=== PATIENT | female | born 1960 | race Caucasian/White ===

== ENCOUNTER 2021-06-02 08:44 | Inpatient (IN) | payer OTHER, SELFPAY ==
[2021-06-02] VITALS (9 sets, daily range): BP systolic 133–180; BP diastolic 79–115; PULSE 81–104; RESP 16–22; TEMP 36.8–37.6; O2SAT 94–98; BMI 25.7
--- NOTE | 2021-06-02 09:10 | PC.NURSE ---
urine cup given
--- NOTE | 2021-06-02 10:38 | W.ED.NAVMDI ---
HPI - Nausea/Vomiting/Diarrhea General: Chief complaint: Nausea/Vomiting/Diarrhea Stated complaint: N/V, HEADACHE, ABD PAINS, WEAKNESS Time Seen by Provider: 06/02/21 10:38 History of Present Illness: HPI Narrative: Ms. Ren is a 61-year-old lady without significant past medical history presents the emergency department due to abdominal pain. Symptom onset was gradual approximately 3 days ago. She initially endorsed generalized aches, headache, nausea, cough. She subsequently developed increased abdominal pain. Abdominal pain is diffuse and has been worsening. She has not had bowel movement and is unsure of her last flatus. Quality is aching and sharp. She is just driving evening as she has not been able to eat much. Overall the course of symptoms has been worsening. Intensity is moderate to severe. Symptoms are worse with palpation and movement. No other specific changes in health, exacerbating, or relieving factors identified. MD elicited complaint: nausea, vomiting and abdominal pain Pertinent past history: abdominal surgery (c section) Onset (ago): day(s) Description of vomiting: food contents and watery Associated nausea: Yes Associated abdominal pain: Yes Location of pain: Diffuse Pain consistency: constant Severity: severe Quality: cramping and aching Exacerbating factors: vomiting and movement Relieving factors: none Associated symtoms: Reports nausea Review of Systems General: Reports: 10 or more systems reviewed and unremarkable except in HPI and below GI: Reports: nausea PFSH ED PFSH: Medical History (Updated 06/06/21 @ 00:01 by ) Common bile duct dilation Constipation GERD (gastroesophageal reflux disease) HTN (hypertension) Hypercalcemia Intrahepatic bile duct dilation No significant past medical history Parathyroid adenoma Surgical History H/O foot surgery History of Family History Father Heart disease Sister Leukemia Social History Smoking and tobacco status: never smoked Alcohol intake: never Lives independently: Yes Household members: spouse Marital status: Current occupational status: unemployed Physical Exam Const: COMMON NORMALS: alert GENERAL APPEARANCE: cooperative, well developed and in distress (uncomfortable due to pain) HENMT: COMMON NORMALS: normocephalic and atraumatic HEAD & SCALP: normocephalic and atraumatic THROAT: posterior oropharynx normal Eye: COMMON NORMALS: conjunctivae normal CONJUNCTIVA: Yes conjunctivae normal SCLERA: sclerae normal Neck/C-Spine: COMMON NORMALS: supple GENERAL: Yes trachea midline Resp: COMMON NORMALS: normal respiratory effort EFFORT & INSPECTION: Yes able to speak in complete sentences Cardio: COMMON NORMALS: regular rate and regular rhythm RATE: regular rate RHYTHM: regular rhythm GI: PALPATION: Yes Tenderness to palpation present (GI), Yes Guarding due to palpation present (GI) and No Rigid due to palpation Extremity: GENERAL: Yes normal exam except as noted and No edema Neuro: COMMON NORMALS: moves all extremities SENSORIUM/ORIENTATION: Yes alert and No Orientation impaired Psych: COMMON NORMALS: mental status grossly normal and Normal thought process present THOUGHT PROCESS: Normal thought process present Course ED course: - Patient was seen and evaluated by me at bedside - Patient placed on cardiac monitors, IV access obtained - Initial evaluation notable for exam as above -Symptom treatment ordered - Labs notable for leukocytosis and hemoconcentration. Metabolic panel notable for marked hypokalemia, evidence of dehydration is present, significant hypercalcemia of unclear etiology. - Imaging notable for abnormal chest x-ray with widened mediastinum and loculated appearance of right peritracheal region with CT chest recommended. Given abdominal symptoms CT abdomen pelvis also warranted. CT chest negative, abnormality on chest x-ray possibly related to reflux. CT abdomen pelvis noted below for pancreatitis. Additional findings include increased attenuation of the liver and gallbladder as well as biliary ductal dilation. - Upon serial reexamination after treatment the patient was mildly improved however required repeated treatment - Based on patient history, evaluation, labs, and imaging as interpreted the most likely cause of the patient's condition is pancreatitis, hypercalcemia of unclear etiology, dehydration with significant hypokalemia predisposing the patient to arrhythmias requiring IV replenishment. - The results of ED evaluation were discussed with the patient including plan for admission due to requirement for level of care not available if discharged to prevent significant worsening/deterioration. - Hospitalist service contacted and agreed to admit the patient however given finding of biliary ductal dilation without capability at this facility for ERCP they required MRCP prior to admission. No evidence of choledocholithiasis on MRCP. Therefore patient to be admitted for further management and care. - Patient was admitted without further deterioration or significant events. Vital Signs: Vital signs: Vital Signs Temperature 98.1 F 06/05/21 14:20 Pulse Rate 73 06/05/21 14:20 Respiratory Rate 18 06/05/21 14:20 Blood Pressure 127/68 06/05/21 14:20 Pulse Oximetry 94 06/05/21 14:20 MDM - Nausea/Vomiting/Diarrhea MDM Narrative: Medical decision making narrative: 61-year-old lady with presenting with abdominal pain, nausea, vomiting. Patient found to have pancreatitis, no history of alcohol abuse. Patient also notable for significant hypercalcemia of unclear etiology. Evidence of metabolic derangement including significant hypokalemia requiring IV replenishment. Patient required multiple redoses of symptom control and therefore requires further inpatient management and evaluation. Medical Records: Attestation: I reviewed the patient's medical records. Lab Data: Attestation: I reviewed the patient's lab results. Labs: Lab Results 06/02/21 06/02/21 06/02/21 10:35 10:35 10:35 WBC 22.9 10^3/uL H 10 ^3/uL (4.0-10.0) RBC 5.45 10^6/uL H 10 ^6/uL (4.1-5.3) Hgb 15.7 g/dL H g/dL (11.5-15.3) Hct 45.7 % % (37.0-47.0) MCV 83.9 fl fl (81-99) MCH 28.8 pg pg (28.0-34.0) MCHC 34.4 g/dL g/dL (30.0-36.0) RDW 12.1 % % (12.1-15.1) Plt Count 265 10^3/cmm 10^3 /cmm (130-400) MPV 11.3 fL H fL (7.4-10.4) Neut % (Auto) 90.5 % % Lymph % (Auto) 3.9 % % Dougherty % (Auto) 4.6 % % Eos % (Auto) 0.0 % % Baso % (Auto) 0.3 % % Neut # (Auto) 20.70 10^3/uL H 1 0^3/uL (1.8-7.7) Lymph # (Auto) 0.9 10^3/uL 10^3/ uL (0.8-4.8) Dougherty # (Auto) 1.1 10^3/uL H 10^ 3/uL (0.2-0.9) Eos # (Auto) 0.0 10^3/uL 10^3/ uL (0.0-0.8) Baso # (Auto) 0.1 10^3/uL 10^3/ uL (0.0-0.1) Nucleated RBC % (a uto) 0 % % Nucleated RBCs # 0.0 /100WBC /100W BC Sodium 139 mmol/L mmol/L (136-145) Potassium 2.3 mmol/L L* mmo l/L (3.5-5.1) Chloride 100 mmol/L mmol/L (98-107) Carbon Dioxide 24 mmol/L mmol/L (22-29) Anion Gap 17.3 (5-19) BUN 21 mg/dL mg/dL (8-23) Creatinine 1.5 mg/dL H mg/dL (0.5-0.9) GFR Calculation 35.2 mL/min L mL/ min (90-130) Glucose 133 mg/dL H mg/dL (65-115) Calculated Osmolal ity 293 mOsm/kg mOsm/ kg (285-295) Lactic Acid Lactic Acid (Sepsi s) Calcium 16.6 mg/dL H* mg/ dL (8.5-10.5) Magnesium Total Bilirubin 0.7 mg/dL mg/dL (0.15-1.2) AST 25 U/L U/L (0-32) ALT 15 U/L U/L (0-33) Alkaline Phosphata se 186 IU/L H IU/L (35-105) Troponin T Baselin e Troponin T 120 Min [place] Troponin T Troponin T Hi Sens 6Hr Troponin T Hi Sens 6Hr [place] Total Protein 7.2 g/dL g/dL (6.6-8.7) Albumin 4.2 g/dL g/dL (3.5-5.2) Globulin 3.0 g/dL g/dL (1.3-4.6) Triglycerides Lipase 25-OH Vitamin D To scarlett TSH Urine Color Yellow (Yellow) Urine Appearance Sl hazy (CLEAR) Urine pH 5 (5-7) Ur Specific Gravit y 1.025 (1.005-1.030) Urine Protein 1+ H (Negative) Urine Glucose (UA) 1+ H (Normal) Urine Ketones Negative (Negative) Urine Blood 3+ H (Negative) Urine Nitrate Negative (Negative) Urine Bilirubin Neg (Negative) Urine Urobilinogen Norm mg/dL mg/dL (Negative) Ur Leukocyte Marcelle ase 1+ H (Negative) Urine RBC 5-10 /hpf H /hpf (0-2) Urine WBC 10-15 /hpf H /hpf (0-5) Ur Squamous Epith Cells 5-10 /hpf H /hpf (0-5) Amorphous Sediment Not Reportable Urine Bacteria 1+ /hpf H /hpf (NONE) Hyaline Casts 5-10 /lpf H /lpf Fine Granular Cast s 5-10 /lpf H /lpf Urine Mucus 1+ /hpf /hpf SARS-CoV-2 Ag (Rap id) 06/02/21 06/02/21 06/02/21 10:35 10:35 10:35 WBC RBC Hgb Hct MCV MCH MCHC RDW Plt Count MPV Neut % (Auto) Lymph % (Auto) Dougherty % (Auto) Eos % (Auto) Baso % (Auto) Neut # (Auto) Lymph # (Auto) Dougherty # (Auto) Eos # (Auto) Baso # (Auto) Nucleated RBC % (a uto) Nucleated RBCs # Sodium Potassium Chloride Carbon Dioxide Anion Gap BUN Creatinine GFR Calculation Glucose Calculated Osmolal ity Lactic Acid Lactic Acid (Sepsi s) Calcium Magnesium 1.6 mg/dL L mg/dL (1.7-2.3) Total Bilirubin AST ALT Alkaline Phosphata se Troponin T Baselin e 31 ng/L H ng/L (0-10) Troponin T 120 Min [place] Troponin T Troponin T Hi Sens 6Hr Troponin T Hi Sens 6Hr [place] Total Protein Albumin Globulin Triglycerides Lipase 638 U/L H U/L (13-60) 25-OH Vitamin D To scarlett TSH Urine Color Urine Appearance Urine pH Ur Specific Gravit y Urine Protein Urine Glucose (UA) Urine Ketones Urine Blood Urine Nitrate Urine Bilirubin Urine Urobilinogen Ur Leukocyte Marcelle ase Urine RBC Urine WBC Ur Squamous Epith Cells Amorphous Sediment Urine Bacteria Hyaline Casts Fine Granular Cast s Urine Mucus SARS-CoV-2 Ag (Rap id) 06/02/21 06/02/21 06/02/21 11:18 12:02 13:24 WBC RBC Hgb Hct MCV MCH MCHC RDW Plt Count MPV Neut % (Auto) Lymph % (Auto) Dougherty % (Auto) Eos % (Auto) Baso % (Auto) Neut # (Auto) Lymph # (Auto) Dougherty # (Auto) Eos # (Auto) Baso # (Auto) Nucleated RBC % (a uto) Nucleated RBCs # Sodium Potassium Chloride Carbon Dioxide Anion Gap BUN Creatinine GFR Calculation Glucose Calculated Osmolal ity Lactic Acid 2.2 mmol/L mmol/L (0.5-2.2) Lactic Acid (Sepsi s) Calcium Magnesium Total Bilirubin AST ALT Alkaline Phosphata se Troponin T Baselin e Troponin T 120 Min [place] 32.11 ng/L H ng/L (0-10) Delta Troponin T 1.11 ABS# ABS# (0-10) Troponin T Hi Sens 6Hr Troponin T Hi Sens 6Hr [place] Total Protein Albumin Globulin Triglycerides Lipase 25-OH Vitamin D To scarlett TSH Urine Color Urine Appearance Urine pH Ur Specific Gravit y Urine Protein Urine Glucose (UA) Urine Ketones Urine Blood Urine Nitrate Urine Bilirubin Urine Urobilinogen Ur Leukocyte Marcelle ase Urine RBC Urine WBC Ur Squamous Epith Cells Amorphous Sediment Urine Bacteria Hyaline Casts Fine Granular Cast s Urine Mucus SARS-CoV-2 Ag (Rap id) Negative (Negative) 06/02/21 06/02/21 06/02/21 13:24 16:37 16:37 WBC RBC Hgb Hct MCV MCH MCHC RDW Plt Count MPV Neut % (Auto) Lymph % (Auto) Dougherty % (Auto) Eos % (Auto) Baso % (Auto) Neut # (Auto) Lymph # (Auto) Dougherty # (Auto) Eos # (Auto) Baso # (Auto) Nucleated RBC % (a uto) Nucleated RBCs # Sodium Potassium Chloride Carbon Dioxide Anion Gap BUN Creatinine GFR Calculation Glucose Calculated Osmolal ity Lactic Acid Lactic Acid (Sepsi s) 1.3 mmol/L mmol/L (0.5-2.2) Calcium Magnesium Total Bilirubin AST ALT Alkaline Phosphata se Troponin T Baselin e Troponin T 120 Min [place] Troponin T Troponin T Hi Sens 6Hr 34.66 ng/L H ng/L (0-10) Troponin T Hi Sens 6Hr [place] 3.66 ng/L ng/L (0-12) Total Protein Albumin Globulin Triglycerides Lipase 25-OH Vitamin D To scarlett TSH 0.98 uIU/mL uIU/m L (0.27-4.20) Urine Color Urine Appearance Urine pH Ur Specific Gravit y Urine Protein Urine Glucose (UA) Urine Ketones Urine Blood Urine Nitrate Urine Bilirubin Urine Urobilinogen Ur Leukocyte Marcelle ase Urine RBC Urine WBC Ur Squamous Epith Cells Amorphous Sediment Urine Bacteria Hyaline Casts Fine Granular Cast s Urine Mucus SARS-CoV-2 Ag (Rap id) 06/02/21 06/02/21 16:37 16:37 WBC RBC Hgb Hct MCV MCH MCHC RDW Plt Count MPV Neut % (Auto) Lymph % (Auto) Dougherty % (Auto) Eos % (Auto) Baso % (Auto) Neut # (Auto) Lymph # (Auto) Dougherty # (Auto) Eos # (Auto) Baso # (Auto) Nucleated RBC % (a uto) Nucleated RBCs # Sodium 141 mmol/L mmol/L (136-145) Potassium 2.6 mmol/L L* mmo l/L (3.5-5.1) Chloride 102 mmol/L mmol/L (98-107) Carbon Dioxide 18 mmol/L L mmol/ L (22-29) Anion Gap 23.6 H (5-19) BUN 21 mg/dL mg/dL (8-23) Creatinine 1.4 mg/dL H mg/dL (0.5-0.9) GFR Calculation 38.1 mL/min L mL/ min (90-130) Glucose 108 mg/dL mg/dL (65-115) Calculated Osmolal ity 296 mOsm/kg H mOs m/kg (285-295) Lactic Acid Lactic Acid (Sepsi s) Calcium 17.3 mg/dL H* mg/ dL (8.5-10.5) Magnesium Total Bilirubin AST ALT Alkaline Phosphata se Troponin T Baselin e Troponin T 120 Min [place] Troponin T Troponin T Hi Sens 6Hr Troponin T Hi Sens 6Hr [place] Total Protein Albumin Globulin Triglycerides 100 mg/dL mg/dL (0-150) Lipase 25-OH Vitamin D To scarlett > 100 ng/mL H ng/ mL (30-100) TSH Urine Color Urine Appearance Urine pH Ur Specific Gravit y Urine Protein Urine Glucose (UA) Urine Ketones Urine Blood Urine Nitrate Urine Bilirubin Urine Urobilinogen Ur Leukocyte Marcelle ase Urine RBC Urine WBC Ur Squamous Epith Cells Amorphous Sediment Urine Bacteria Hyaline Casts Fine Granular Cast s Urine Mucus SARS-CoV-2 Ag (Rap id) EKG Data^: EKG 1: Attestation: I personally reviewed and interpreted this EKG as follows: EKG interpretation date: 06/02/21 EKG interpretation time: 11:18 Interpretation: Twelve-lead EKG shows a irregular rhythm at a rate of 96. UT interval varies, QRS duration 104, QTc 301. Left axis deviation. Interpretation: Irregular sinus rhythm. EKG 2: Attestation: I personally reviewed and interpreted this EKG as follows: EKG interpretation date: 06/02/21 EKG interpretation time: 17:55 Interpretation: Twelve-lead EKG shows a irregular rhythm at a rate of 102. UT interval 184, QRS duration 80, QTc 305 Normal axis. Interpretation: Sinus arrhythmia. EKG 3: Attestation: I personally reviewed and interpreted this EKG as follows: EKG interpretation date: 06/02/21 EKG interpretation time: 13:22 Interpretation: Twelve-lead EKG shows an irregular rhythm at a rate of 110. UT interval variable, QRS duration 76, QTc 289. Left axis deviation. Interpretation: Sinus arrhythmia. Discharge Plan Discharge Patient Disposition: Admitted As Inpatient Admit Provider: Carrillo Torres Condition: Stable Discharge Diet: Advance as tolerated, Soft Mechanical and Full LIquid Discharge Activity: Resume usual activity Coding Level of Care Code ED Stile Ripsaw Operator for Chg Fwd Exam Comprehensive
--- NOTE | 2021-06-02 10:53 | CTR_ITS ---
PROCEDURE INFORMATION: Exam: CT Chest With Contrast; Diagnostic Exam date and time: 06/02/2021 10:53 AM Age: 61 years old Clinical indication: Abdominal pain; Chest pressure; Additional info: Abd pain, n/v/d TECHNIQUE: Imaging protocol: Diagnostic computed tomography of the chest with contrast. Radiation optimization: All CT scans at this facility use at least one of these dose optimization techniques: automated exposure control; mA and/or kV adjustment per patient size (includes targeted exams where dose is matched to clinical indication); or iterative reconstruction. Contrast material: VISI 320; Contrast volume: 95 ml; Contrast route: INTRAVENOUS (IV); COMPARISON: CR (CHEST, ) 06/02/2021 10:57 AM RADIATION DOSE METRICS: Total DLP (mGy-cm): 959.27 FINDINGS: Lungs: Unremarkable. No consolidation. No masses. Pleural spaces: Unremarkable. No pneumothorax. No pleural effusion. Heart: Normal heart size. Coronary atherosclerotic calcifications seen. No pericardial effusion. Mediastinal space: Air-fluid/contrast level seen within the esophagus, suggestive of gastroesophageal reflux. Aorta: Unremarkable. No aortic aneurysm. Lymph nodes: Unremarkable. No enlarged lymph nodes. Bones/joints: Old healed fracture deformities noted in the left ribcage. Degenerative changes of the spine seen. Soft tissues: Unremarkable. PROCEDURE INFORMATION: Exam: CT Abdomen And Pelvis With Contrast Exam date and time: 06/02/2021 10:53 AM Age: 61 years old Clinical indication: Abdominal pain; Chest pressure; Additional info: Abd pain, n/v/d TECHNIQUE: Imaging protocol: Computed tomography of the abdomen and pelvis with contrast. Radiation optimization: All CT scans at this facility use at least one of these dose optimization techniques: automated exposure control; mA and/or kV adjustment per patient size (includes targeted exams where dose is matched to clinical indication); or iterative reconstruction. Contrast material: VISI 320; Contrast volume: 95 ml; Contrast route: INTRAVENOUS (IV); COMPARISON: CR (CHEST, ) 06/02/2021 10:57 AM RADIATION DOSE METRICS: Total DLP (mGy-cm): 959.27 FINDINGS: Liver: No mass. See Gallbladder and bile ducts finding. Gallbladder and bile ducts: There is moderate dilatation of the CBD measuring up to 1.8 cm in diameter. No clear evidence of obstructing stone or mass. Mild intrahepatic biliary ductal dilatation is present. Non abnormally distended gallbladder. There is slight increased density of the pancreatic parenchyma surrounding the gallbladder, which may represent mild secondary hyperemia or fat sparing. There is an ill-defined focus of decreased attenuation along the anterior aspect of the liver and adjacent to the falciform ligament, consistent with focal fatty infiltration. Slight decreased attenuation of the liver, suggestive of hepatic steatosis. Pancreas: Homogeneous enhancement of the pancreatic parenchyma. No evidence of necrosis. No mass lesion seen. No pancreatic ductal dilatation seen. There is stranding of the fat surrounding the pancreatic body and tail, with free fluid extending towards the left upper quadrant, left anterior pararenal space, pelvis and perihepatic region. No discrete peripancreatic fluid collection. Spleen: Normal. No splenomegaly. Adrenal glands: Normal. No mass. Kidneys and ureters: Normal. No hydronephrosis. Stomach and bowel: Unremarkable. No obstruction. No mucosal thickening. Appendix: No evidence of appendicitis. Intraperitoneal space: Unremarkable. No free air. No significant fluid collection. Vasculature: Unremarkable. No abdominal aortic aneurysm. Lymph nodes: Unremarkable. No enlarged lymph nodes. Urinary bladder: Unremarkable as visualized. Reproductive: The uterus is surgically absent. Bones/joints: Degenerative changes of the spine seen. No acute fracture. Soft tissues: Unremarkable. CT/CT chest abd pel w con* IMPRESSION: 1. No acute pathology in the chest. 2. Imaging findings suggestive of gastroesophageal reflux. IMPRESSION: 1. Imaging findings of acute pancreatitis. 2. Moderate extrahepatic and mild intrahepatic biliary ductal dilatation. 3. Slight increased attenuation of the liver surrounding the gallbladder, which may represent fat sparing or mild secondary hyperemia.
--- NOTE | 2021-06-02 10:53 | XRR_ITS ---
PROCEDURE INFORMATION: Exam: XR Chest Exam date and time: 06/02/2021 10:53 AM Age: 61 years old Clinical indication: Patient HX: Cough x 3 days TECHNIQUE: Imaging protocol: XR of the chest. Views: 1 view. COMPARISON: No relevant prior studies available. FINDINGS: Lungs: Minimal bibasilar atelectasis. No consolidation. Pleural spaces: Unremarkable. No pleural effusion. No pneumothorax. Heart/Mediastinum: Widened mediastinum, with thickened lobulated appearance of the right paratracheal region. Vasculature: Uncoil of the aorta. Bones/joints: Mild S-shaped curvature of the spine and multilevel degenerative changes seen. XR/XR chest 1V portable [id number] IMPRESSION: 1. Nonspecific widened mediastinum with thickened lobulated appearance of the right paratracheal region. Further evaluation with CT chest is recommended. 2. Bibasilar atelectasis. No consolidation.
[2021-06-02] MEDS: sodium chloride 0.9% 1,000 ML 999 ML IV ×2 (10:55→19:04)
[2021-06-02] MEDS: ondansetron 2 mg/ML SDV 2 mL 4 MG IVP ×2 (10:55→15:12)
[2021-06-02] MEDS: morphine 4 mg/mL SDV 1 mL IVP ×3 (10:55→19:06)
--- NOTE | 2021-06-02 10:55 | ECG_ITS ---
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 Measurements Intervals [place] Rate: 96 P: [place]: QRS: 8 QRSD: 104 T: -61 QT: 247 QTc: 313 Interpretive Statements SINUS RHYTHM WITH PAC'S NONSPECIFIC ST & T-WAVE ABNORMALITY No previous ECG available for comparison Electronically Signed On 06-04-2021 5:08:02 INSPECTOR [employer]ESSES by Pamella Chadwick M.D. [id number] f
[2021-06-02 10:57] LABS: Basophils # 0.1 10^3/uL (0.0-0.1); Basophils % 0.3 %; Hematocrit 45.7 % (37.0-47.0); Hemoglobin 15.7 g/dL (11.5-15.3); Lymphocytes # 0.9 10^3/uL (0.8-4.8); Lymphocytes % 3.9 %; Mean Corpuscular HGB Conc 34.4 g/dL (30.0-36.0); Mean Corpuscular Hemoglobin 28.8 pg (28.0-34.0); Mean Corpuscular Volume 83.9 fl (81-99); Mean Platelet Volume 11.3 fL (7.4-10.4); Monocytes # 1.1 10^3/uL (0.2-0.9); Monocytes % 4.6 %; Neutrophils % 90.5 %; Nucleated Red Blood Cells % 0 %; Platelet Count 265 10^3/cmm (130-400); Red Blood Count 5.45 10^6/uL (4.1-5.3); Red Cell Distribution Width 12.1 % (12.1-15.1); White Blood Count 22.9 10^3/uL (4.0-10.0)
[2021-06-02 11:09] LABS: Add Urine Microscopic? YES; Bilirubin Urine Neg (Negative); Blood Urine 3+ (Negative); Glucose Urine UA 1+ (Normal); Ketones Urine Negative (Negative); Leukocyte Esterase Urine 1+ (Negative); Nitrate Urine Negative (Negative); Protein Urine 1+ (Negative); Specific Gravity, Urine 1.025 (1.005-1.030); Urine Appearance SL Hazy (CLEAR); Urine Color Yellow (Yellow); Urobilinogen Urine Norm (Negative); pH Urine 5 (5-7)
[2021-06-02 11:10] LABS: Add Urine Culture? Yes; Bacteria Urine 1+ /hpf; Mucus Urine 1+ /hpf
[2021-06-02 11:23] LABS: Alanine Aminotransferase 15 U/L (0-33); Albumin Level 4.2 g/dL (3.5-5.2); Alkaline Phosphatase 186 IU/L (35-105); Anion Gap 17.3 (5-19); Aspartate Amino Transferase 25 U/L (0-32); Blood Urea Nitrogen 21 mg/dL (8-23); Carbon Dioxide 24 mmol/L (22-29); Chloride 100 mmol/L (98-107); Glomerular Filtration Rate 35.2 mL/min (90-130); Glucose 133 mg/dL (65-115); Osmolality Calculated 293 mOsm/kg (285-295); Sodium 139 mmol/L (136-145); Total Bilirubin 0.7 mg/dL (0.15-1.2); Total Protein 7.2 g/dL (6.6-8.7)
[2021-06-02 11:24] LABS: Troponin(5th) Baseline 31 ng/L (0-10)
[2021-06-02 11:31] LABS: Lipase 638 U/L (13-60)
[2021-06-02 11:32] LABS: Calcium 16.6 mg/dL (8.5-10.5); Potassium 2.3 mmol/L (3.5-5.1)
--- NOTE | 2021-06-02 11:32 | PC.NURSE ---
NOTIFIED DR. HONEYCUTT OF [place] OF 16.6 AND K OF 2.3 VERBALIZED UNDERSTANDING NO FURTHER ORDERS.
[2021-06-02 11:44] LABS: SARS Covid-2 Antigen Negative (Negative)
[2021-06-02] MEDS: lidocaine 1% 5 ML in potassium chloride premix 100 ML 25 ML IV (11:49)
[2021-06-02] MEDS: potassium chloride ER 20 mEq Tablet 40 MEQ PO (11:49)
[2021-06-02] MEDS: magnesium sulfate premix 2 GM/50 ML PIGGYBACK IV (11:49)
[2021-06-02 11:55] LABS: Magnesium 1.6 mg/dL (1.7-2.3)
[2021-06-02] MEDS: iodixanol 320 mg/mL 100mL Btl IV (12:15)
[2021-06-02 12:24] LABS: Lactic Sepsis W/Reflex 2.2 mmol/L (0.5-2.2)
[2021-06-02 12:40] LABS: Reflex Lactate Order REFLEX LACTIC ORDERD
--- NOTE | 2021-06-02 12:55 | ECG_ITS ---
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 Measurements Intervals [place] Rate: 110 P: [place]: QRS: -3 QRSD: 76 T: 24 QT: 224 QTc: 304 Interpretive Statements SINUS RHYTHM WITH PAC'S NONSPECIFIC ST & T-WAVE ABNORMALITY ABNORMAL RHYTHM ECG Compared to ECG 06/02/2021 11:16:52 No significant changes Electronically Signed On 06-04-2021 5:21:35 PROCESS TREATER by Pamella Chadwick M.D. [id number] f
[2021-06-02 13:51] LABS: Troponin 5 2HR 32.11 ng/L (0-10); Troponin 5 2HR Delta 1.11 ABS# (0-10)
--- NOTE | 2021-06-02 15:15 | MRR_ITS ---
PROCEDURE INFORMATION: Exam: MR Abdomen Without Contrast Exam date and time: 06/02/2021 3:15 PM Age: 61 years old Clinical indication: Abdominal pain; Other: Sharp and severe; Additional info: Biliary ductal dilation, pancreatitis, R/O obstruction TECHNIQUE: Imaging protocol: MR of the abdomen without contrast. COMPARISON: CT chest abd pel w con* 06/02/2021 12:14 PM FINDINGS: Liver: Chemical shift images demonstrate diffuse signal dropout throughout the liver on out of phase sequence, with a calculated fat fraction of 20.2%, consistent with mild hepatic steatosis. There is a 1.3 cm focus of signal dropout adjacent to the falciform ligament, consistent with focal fatty infiltration. No mass lesion identified. Gallbladder and bile ducts: There is moderate dilatation of the CBD measuring up to 1.8 cm in diameter. Mild intrahepatic biliary ductal dilatation is present. No evidence of filling defect to suggest choledocholithiasis. The gallbladder is not abnormally distended. No gallstones seen. Pancreas: Edematous changes of the pancreas noted. No evidence of necrosis. No mass lesion seen. No pancreatic ductal dilatation seen. There is stranding of the fat surrounding the pancreatic body and tail, with free fluid extending towards the left upper quadrant, left anterior pararenal space, pelvis and perihepatic region. No discrete peripancreatic fluid collection. Spleen: Unremarkable. No splenomegaly. Adrenal glands: Unremarkable. No mass. Kidneys and ureters: Unremarkable. No solid mass. No hydronephrosis. Stomach and bowel: Visualized stomach and intestines are unremarkable. Intraperitoneal space: No free fluid. Arteries: No abdominal aortic aneurysm. Bones/joints: Degenerative changes of the spine seen. Soft tissues: Unremarkable. MR/MR MRCP [id number] IMPRESSION: 1. Imaging findings of acute pancreatitis involving the body and tail. No discrete peripancreatic fluid collection seen. No mass lesion seen. No ductal dilatation. 2. Moderate extrahepatic and mild intrahepatic biliary ductal dilatation, without evidence of choledocholithiasis. 3. Mild hepatic steatosis, with calculated fat fraction of 20.2%.
--- NOTE | 2021-06-02 16:39 | PC.NURSE ---
1515 Pt left for MRI. 1630 Pt returned from MRI.
--- NOTE | 2021-06-02 16:55 | ECG_ITS ---
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 Measurements Intervals [place] Rate: 102 P: 56 SD: 184 QRS: 1 QRSD: 80 T: 38 QT: 246 QTc: 321 Interpretive Statements SINUS TACHYCARDIA WITH OCCASIONAL SUPRAVENTRICULAR PREMATURE COMPLEXES NONSPECIFIC ST & T-WAVE ABNORMALITY ABNORMAL RHYTHM ECG Compared to ECG 06/02/2021 13:14:13 Atrial fibrillation no longer present T-wave abnormality still present Electronically Signed On 06-04-2021 5:19:48 DIRECTOR COUNSELING [employer]AU by Pamella Chadwick M.D. [id number]
[2021-06-02 17:12] LABS: Troponin 5 6HR 34.66 ng/L (0-10); Troponin 5 6HR Delta 3.66 ng/L (0-12)
[2021-06-02 17:14] LABS: Lactic Acid level (Lactate) 1.3 mmol/L (0.5-2.2)
[2021-06-02 18:28] LABS: Calcium 16.8 mg/dL (8.5-10.5)
--- NOTE | 2021-06-02 19:03 | P.HP_ITS ---
Providers/Chief Complaint Primary Care Provider: Merlin Slade MD Chief Complaint: N/V, HEADACHE, ABD PAINS, WEAKNESS History of Present Illness Pleasant 61-year-old lady with history of HTN, hypercalcemia for which she has been following with her primary provider, has been feeling unwell for a while, feeling some decrease in alertness/cognition, constipation, presented with several days of nausea and vomiting, mid abdominal pain. In ER with noted hypokalemia, hypercalcemia, calcium 16.6, recheck 16.8. Hypomagnesemia 1.6. Al k phos 168 with normal T bili and transaminases. Lipase 638. Chest x-ray with nonspecific widened mediastinum with lobulated appearance of right peritracheal region. Bibasilar atelectasis. No consolidation. CT chest abdomen pelvis obtained with finding of no acute pathology in the chest, imaging findings suggestive of GERD, in the abdomen noted acute pancreatitis, moderate extrahepatic and mild intrahepatic biliary ductal dilation, slight increased attenuation of liver surrounding gallbladder possible representing fat sparing or mild secondary hyperemia. MRCP showed imaging findings of acute pancreatitis involving the body and tail. No discrete peripancreatic fluid collection seen. No mass lesions seen. No ductal dilation. Moderate extrahepatic and mild intrahepatic biliary ductal dilation without evidence of choledocholithiasis. Mild hepatic steatosis with calculated past fraction of 20.2%. Discussing findings with her, as it is unclear why there is intra and extrahepatic biliary ductal dilation, no choledocholithiasis identified, but cannot exclude stricture or other causes potentially leading to unimproving pancreatitis until addressed, consideration given to transfer to outside facilities, however, recently with lack of beds associated with the current pandemic surge, she is willing to stay here to initiate additional assessment and treatment and reassess tomorrow with consideration of further course of action depending on whether her condition is improving. Review of Systems Const: Denies: fever(s), chills, body aches or malaise Eyes: Denies: change in vision or eye redness ENMT: Denies: throat pain, oral sores or ear or mastoid pain Card: Denies: chest pain, edema, pre-syncope or dyspnea on exertion Resp: Denies: dyspnea, productive cough, change in phlegm color or hemoptysis GI: Denies: abdominal pain, nausea, vomiting, diarrhea, constipation, hematochezia or melena : Denies: flank pain, urinary frequency or hematuria Musc: Denies: back pain, joint swelling or joint redness Skin/Breast: Denies: rash, sores or new lesions Neuro: Denies: headache(s), numbness in extremities, weakness in extremities, dizziness, confusion or seizure-like activity Endo: Denies: polyuria or polydipsia Harpreet/Lymph: Denies: easy bleeding or purpura All/Imm: Denies: urticaria, throat swelling or tongue swelling Medications/Allergies Home Medications Medication Instructions Recorded Confirmed Last Taken Type atorvastatin 80 mg PO DAILY 06/02/21 06/02/21 06/01/21 History diltiazem HCl 180 mg PO DAILY 06/02/21 06/02/21 06/01/21 History lisinopril 20 mg PO BID 06/02/21 06/02/21 06/01/21 History methadone 5 mg PO BID 06/02/21 06/02/21 06/01/21 History potassium chloride 10 meq PO DAILY 06/02/21 06/02/21 06/01/21 History Allergies Allergy/AdvReac Type Severity Reaction Status Date / Time prochlorperazine Allergy ADR-Irritab Verified 06/02/21 09:05 [From Compazine] le PFSH Acute PFSH: Medical History (Updated 06/02/21 @ 19:36 by Carrillo Torres MD) Constipation HTN (hypertension) Hypercalcemia No significant past medical history Surgical History H/O foot surgery History of Family History Father Heart disease Sister Leukemia Social History Smoking and tobacco status: never smoked Alcohol intake: never Substance/Drug Use: never Lives independently: Yes Household members: spouse Marital status: Current occupational status: unemployed Vitals/I&O/Wt Last Vital Signs Temp 98.3 F 06/02/21 09:05 Pulse 89 06/02/21 11:00 Resp 18 06/02/21 11:00 BP 133/105 06/02/21 11:00 Pulse Ox 98 06/02/21 11:00 06/02/21 06/02/21 06/02/21 06:59 14:59 22:59 Intake Total 1050 / 1050 Balance 1050 / 1050 Weight last 48 hrs Weight 70.307 kg Physical Exam Const: COMMON NORMALS: no acute distress and patient oriented x3 OTHER: Slightly delayed responses HENMT: COMMON NORMALS: oropharynx normal Neck/C-Spine: COMMON NORMALS: no JVD Resp: COMMON NORMALS: normal respiratory effort and clear to auscultation bilaterally AUSCULTATION: clear to auscultation bilaterally Cardio: COMMON NORMALS: no JVD, regular rhythm, S1 normal heart sound present, S2 normal heart sound present and No murmurs present (Cardio) RHYTHM: regular rhythm HEART SOUNDS: S1 normal heart sound present and S2 normal heart sound present GI: COMMON NORMALS: Normal to inspection, nondistended, normoactive bowel sounds present and Soft to palpation PALPATION: Yes Soft to palpation and Yes Tenderness to palpation present (GI) Details: other (mid/periumbilical) Extremity: COMMON NORMALS: no joint enlargement and no pedal edema Neuro: COMMON NORMALS: patient oriented x3 and moves all extremities Skin: COMMON NORMALS: no rashes or lesions noted GENERAL SKIN EXAM: no rashes or lesions noted Data : 06/02/21 10:35 06/02/21 10:35 A&P Assessment and plan (1) Acute pancreatitis: Discussed with her unclear cause of intrahepatic biliary duct dilation, moderate CBD dilation. No stones noted on ERCP. Possible passed stone, possible passed sludge. Discussed with her possibility of stricture, discussed the possibility of malignancy obstructing outflow. At the same time has an alternative cause also for pancreatitis and hypercalcemia. Pain is mid abdomen, no right upper quadrant pain. Unclear significance of the ductal dilation currently. Given lack of beds in surrounding hospitals she is agreeable to initiate care here. Will recheck lipase in the morning. Currently bowel rest, IV hydration. Analgesia as needed. Antiemetics as needed. Check triglycerides. Treat hypercalcemia as below. Status: Acute (2) Common bile duct dilation: Understands in case of persistent pancreatitis may still need transfer to outlying hospital for GI evaluation, possible EUS, possible ERCP. Would otherwise set up follow-up with gastroenterology after discharge for additional evaluation. Status: Acute (3) Intrahepatic bile duct dilation: Status: Acute (4) Hypercalcemia: Unclear cause of hypercalcemia, although states has been following with primary provider with fluctuating calcium levels being monitored. Symptomatic severe hypercalcemia with pancreatitis, CHANDA, notes has not been feel ing well for a while with some cognitive slowing, reports also constipation. Findings consistent with GERD on imaging. Received IV fluid bolus in ER. Continue IV fluids with normal saline infusion. Discussed with her additionally treatment with calcitonin, pamidronate. Check PTH, vitamin D levels. Reports taking vitamin D supplementation at home. Consider additional assessment depending on findings further considering assessment for hematologic disorders given history of leukemia in his sister. Status: Acute (5) Hypokalemia: Received replacement. Recheck BMP. Hypomagnesemia replaced. Status: Acute (6) UTI (urinary tract infection): Possible UTI. Follow-up urine culture. Ceftriaxone. Status: Acute (7) Hypomagnesemia: Received replacement. Follow-up magnesium level. Status: Acute (8) GERD (gastroesophageal reflux disease): Findings consistent with GERD noted on imaging. Consider referral for endoscopic evaluation after discharge. Start PPI. Status: Acute (9) CHANDA (acute kidney injury): Hold lisinopril. Treatment for hypercalcemia as above. Status: Acute Additional A&P Information Methadone therapy: Please confirm with clinic regarding dose on Thursday. Irregular heartbeat: Machine report atrial fibrillation on initial EKG. On evaluation appears to have P waves preceding QRSs, irregular heartbeat, however, with premature 90 ventricular beats. Monitor on telemetry. Attestations Medical Necessity Statement*: Admission of over 2 midnights is anticipated for assessment management of severe symptomatic hypercalcemia, multiple electrolyte derangements, CHANDA, acute pancreatitis. Coding Level of Care Code Acute Aging Department Supervisor for [facility] Fwd Diagnoses Acute pancreatitis K85.90 Common bile duct dilation K83.8 Intrahepatic bile duct dilation K83.8 Hypercalcemia E83.52 Hypokalemia E87.6 UTI (urinary tract infection) N39.0 Hypomagnesemia E83.42 GERD (gastroesophageal reflux disease) K21.9 CHANDA (acute kidney injury) N17.9
[2021-06-02 20:45] LABS: Triglycerides 100 mg/dL (0-150)
[2021-06-02] MEDS: sodium chloride 0.9% 1,000 ML 150 ML IV (20:46)
[2021-06-02] MEDS: cefTRIAXone 1,000 MG in sodium chloride 0.9% (plus) 50 ML 100 MG IV (21:24)
[2021-06-02] MEDS: calcitonin,salmon 200 unit/mL SDV 2mL 280 UNIT SUBCUT (21:24)
[2021-06-02] MEDS: enoxaparin 40 mg/0.4 mL Syringe SUBCUT (21:24)
[2021-06-02 22:50] LABS: Thyroid Stimulating Hormone 0.98 uIU/mL (0.27-4.20)
[2021-06-03] VITALS (11 sets, daily range): BP systolic 128–169; BP diastolic 78–102; PULSE 88–105; RESP 16–18; TEMP 36.6–37.8; O2SAT 90–95
[2021-06-03] MEDS: morphine 4 mg/mL SDV 1 mL IVP ×2 (00:06→06:35)
[2021-06-03 00:47] LABS: Blood Urea Nitrogen 21 mg/dL (8-23); Carbon Dioxide 18 mmol/L (22-29); Chloride 102 mmol/L (98-107); Glomerular Filtration Rate 38.1 mL/min (90-130); Glucose 108 mg/dL (65-115); Osmolality Calculated 296 mOsm/kg (285-295); Sodium 141 mmol/L (136-145)
[2021-06-03 00:47] LABS: Parathyroid Hormone 163.5 pg/mL (15-65)
[2021-06-03 00:57] LABS: Anion Gap 23.6 (5-19)
[2021-06-03 01:00] LABS: Calcium 17.3 mg/dL (8.5-10.5); Potassium 2.6 mmol/L (3.5-5.1)
[2021-06-03 01:02] LABS: Calcium 16.5 mg/dL (8.5-10.5)
[2021-06-03 03:43] LABS: 25 Hydroxy Vitamin D > 100 ng/mL (30-100)
[2021-06-03] MEDS: sodium chloride 0.9% 1,000 ML 150 ML IV ×2 (03:45→10:16)
[2021-06-03 06:10] LABS: Basophils % 0.2 %; Hematocrit 41.8 % (37.0-47.0); Hemoglobin 13.9 g/dL (11.5-15.3); Lymphocytes # 0.8 10^3/uL (0.8-4.8); Lymphocytes % 4.2 %; Mean Corpuscular HGB Conc 33.3 g/dL (30.0-36.0); Mean Corpuscular Hemoglobin 29.1 pg (28.0-34.0); Mean Corpuscular Volume 87.6 fl (81-99); Mean Platelet Volume 11.5 fL (7.4-10.4); Monocytes # 0.6 10^3/uL (0.2-0.9); Monocytes % 3.2 %; Neutrophils # 17.08 10^3/uL (1.8-7.7); Neutrophils % 91.5 %; Nucleated Red Blood Cells % 0 %; Platelet Count 207 10^3/cmm (130-400); Red Blood Count 4.77 10^6/uL (4.1-5.3); Red Cell Distribution Width 12.7 % (12.1-15.1); White Blood Count 18.7 10^3/uL (4.0-10.0)
[2021-06-03 06:39] LABS: Alanine Aminotransferase 19 U/L (0-33); Albumin Level 3.4 g/dL (3.5-5.2); Alkaline Phosphatase 181 IU/L (35-105); Anion Gap 18.6 (5-19); Aspartate Amino Transferase 35 U/L (0-32); Blood Urea Nitrogen 19 mg/dL (8-23); Carbon Dioxide 22 mmol/L (22-29); Chloride 109 mmol/L (98-107); Glomerular Filtration Rate 45.5 mL/min (90-130); Glucose 95 mg/dL (65-115); Lipase 147 U/L (13-60); Magnesium 1.6 mg/dL (1.7-2.3); Osmolality Calculated 306 mOsm/kg (285-295); Sodium 147 mmol/L (136-145); Total Bilirubin 0.6 mg/dL (0.15-1.2); Total Protein 6.4 g/dL (6.6-8.7)
[2021-06-03 06:51] LABS: Calcium 13.8 mg/dL (8.5-10.5); Potassium 2.6 mmol/L (3.5-5.1)
[2021-06-03] MEDS: methadone 10 mg Tablet 5 MG PO ×2 (10:10→17:14)
[2021-06-03] MEDS: dilTIAZem ER (24HR) 180 mg Capsule PO (10:10)
[2021-06-03] MEDS: pantoprazole DR 40 mg Tablet PO (10:10)
[2021-06-03] MEDS: atorvastatin 40 mg Tablet 80 MG PO (10:11)
[2021-06-03] MEDS: potassium chloride ER 10 mEq Tablet PO (10:11)
[2021-06-03] MEDS: calcitonin,salmon 200 unit/mL SDV 2mL 280 UNIT SUBCUT (11:24)
--- NOTE | 2021-06-03 13:53 | US_ITS ---
WS: [id number] ULTRASOUND THYROID TECHNIQUE: Ultrasound of the thyroid. CLINICAL INFORMATION: high pth, COMPARISON: None. FINDINGS: Thyroid: Right and left thyroid lobes are normal in size and echotexture. Hypoechoic well-circumscribed right mid thyroid or parathyroid lesion with peripheral vascularity na suring 1.0 x 1.8 x 2.2 CM. Additional hypoechoic right inferior thyroid lesion measuring 1.0 x 0.7 x 0.7 cm Left superior thyroid nodule measuring 0.7 x 0.4 x 0.5 cm Right thyroid lobe: 3.7 cm x 1.3 cm x 2.1 cm Left thyroid lobe: 3.4 cm x 1.0 cm x 1.3 cm. Isthmus: 0.2 mm. Cervical lymphadenopathy: None. US/US thyroid [id number] IMPRESSION: 1. Hypoechoic well-circumscribed right mid thyroid or parathyroid lesion with peripheral vascularity measuring 1.0 x 1.8 x 2.2 CM. Considering clinical histo ry this may represent a parathyroid adenoma. Recommend further evaluation with Nuclear medicine parathyroid scintigraphy 2. Additional smaller hypoechoic nodules described above.
[2021-06-03] MEDS: D5-NS 0.45% + KCL 20 mEq 20 MEQ/1,000 ML BAG 100 MEQ IV (14:25)
[2021-06-03] MEDS: magnesium sulfate premix 2 GM/50 ML PIGGYBACK IV (14:26)
[2021-06-03] MEDS: potassium chloride ER 20 mEq Tablet 40 MEQ PO ×3 (14:26→17:14)
--- NOTE | 2021-06-03 17:15 | P.PN_ITS ---
Subjective Subjective: Interval history: Hospital course: Labs appreciated. Family at bedside. Patient denies any vomiting but complaining of nausea. States abdominal pain is stable they are getting exaggerated on movements. Has remained afebrile and hemodynamically stable. On room air. Vitals/I&O/Wt Last Vital Signs Temp 97.8 F 06/03/21 16:00 Pulse 88 06/03/21 16:00 Resp 16 06/03/21 17:14 BP 128/80 06/03/21 16:00 Pulse Ox 90 06/03/21 16:00 06/03/21 06/03/21 06/03/21 06:59 14:59 22:59 Intake Total 1000 / 3205 977.5 / 977.5 Balance 1000 / 3205 977.5 / 977.5 Weight last 48 hrs Weight 69.763 kg Weight 70.307 kg Weight 70.307 kg Physical Exam Const: COMMON NORMALS: no acute distress and patient oriented x3 OTHER: Slightly delayed responses HENMT: COMMON NORMALS: oropharynx normal Neck/C-Spine: COMMON NORMALS: no JVD Resp: COMMON NORMALS: normal respiratory effort and clear to auscultation bilaterally AUSCULTATION: clear to auscultation bilaterally Cardio: COMMON NORMALS: no JVD, regular rhythm, S1 normal heart sound present, S2 normal heart sound present and No murmurs present (Cardio) RHYTHM: regular rhythm HEART SOUNDS: S1 normal heart sound present and S2 normal heart sound present GI: COMMON NORMALS: Normal to inspection, nondistended, normoactive bowel sounds present and Soft to palpation PALPATION: Yes Soft to palpation and Yes Tenderness to palpation present (GI) Extremity: COMMON NORMALS: no joint enlargement and no pedal edema Neuro: COMMON NORMALS: patient oriented x3 and moves all extremities Skin: COMMON NORMALS: no rashes or lesions noted GENERAL SKIN EXAM: no rashes or lesions noted Data : 06/03/21 05:01 06/03/21 05:01 Micro: Microbiology 06/02/21 10:35 Urine Culture - Preliminary Urine,Clean Catch A&P Assessment and plan (1) Acute pancreatitis: Triglycerides within normal limits. MRCP negative for gallstones. Did show intrahepatic biliary duct dilatation, moderate severity dilatation hence cannot rule out outside compression. Could be secondary to hypercalcemia. Continued IV fluids. Switch to D5 half NS with 20 mg of potassium at 100 cc/h. Zofran as needed. Morphine as needed for hours. Start on clear liquids diet. Discussed in detail with patient regarding multiple small meals. Status: Acute (2) Common bile duct dilation: Understands in case of persistent pancreatitis may still need transfer to outlying hospital for GI evaluation, possible EUS, possible ERCP. Would otherwise set up follow-up with gastroenterology after discharge for additional evaluation. Status: Acute (3) Intrahepatic bile duct dilation: Status: Acute (4) Hypercalcemia: States is chronic. Unclear etiology. PTH elevated. Continue with IV fluids. Continue with calcitonin and additionally post 1 dose of pamidronate. Check thyroid ultrasound. Status: Acute (5) Hypokalemia: Again noted. 40 mg of potassium every hourly for 3 doses. IV fluids with potassium. Repeat BMP in evening. Status: Acute (6) UTI (urinary tract infection): Possible UTI. Follow-up urine culture. Ceftriaxone. Status: Acute (7) Hypomagnesemia: Received replacement. Follow-up magnesium level. Status: Acute (8) GERD (gastroesophageal reflux disease): Findings consistent with GERD noted on imaging. Consider referral for endoscopic evaluation after discharge. Start PPI. Status: Acute (9) CHANDA (acute kidney injury): Hold lisinopril. Treatment for hypercalcemia as above. Status: Acute Additional A&P Information Methadone therapy: Please confirm with clinic regarding dose on Thursday. Full code. Clear liquid diet. Lovenox for DVT prophylaxis. Protonix for PUD prophylaxis Attestations Medical Necessity Statement*: For management of pancreatitis, hypercalcemia most likely causing pancreatitis while patient remains dehydrated from poor oral intake as Guiatuss tried. Time Spent in Patient Care: Greater than 35 minutes (>than 50% of time spent in counselling and/or direct pt care on unit) . Coding Level of Care Code Acute Retort Condenser Attendant for [facility] Fwd Diagnoses Acute pancreatitis K85.90 Common bile duct dilation K83.8 Intrahepatic bile duct dilation K83.8 Hypercalcemia E83.52 Hypokalemia E87.6 UTI (urinary tract infection) N39.0 Hypomagnesemia E83.42 GERD (gastroesophageal reflux disease) K21.9 CHANDA (acute kidney injury) N17.9
[2021-06-03 19:21] LABS: Anion Gap 17.4 (5-19); Blood Urea Nitrogen 16 mg/dL (8-23); Calcium 11.5 mg/dL (8.5-10.5); Carbon Dioxide 20 mmol/L (22-29); Chloride 109 mmol/L (98-107); Glomerular Filtration Rate 56.2 mL/min (90-130); Glucose 122 mg/dL (65-115); Osmolality Calculated 298 mOsm/kg (285-295); Potassium 3.4 mmol/L (3.5-5.1); Sodium 143 mmol/L (136-145)
[2021-06-03] MEDS: cefTRIAXone 1,000 MG in sodium chloride 0.9% (plus) 50 ML 100 MG IV (20:10)
[2021-06-03] MEDS: enoxaparin 40 mg/0.4 mL Syringe SUBCUT (20:10)
[2021-06-03] MEDS: morphine 4 mg/mL SDV 1 mL 2 MG IVP (20:16)
[2021-06-04] VITALS (7 sets, daily range): BP systolic 128–154; BP diastolic 74–91; PULSE 67–98; RESP 15–18; TEMP 36.7–37.7; O2SAT 90–95
[2021-06-04] MEDS: morphine 4 mg/mL SDV 1 mL 2 MG IVP ×2 (00:22→08:09)
[2021-06-04] MEDS: calcitonin,salmon 200 unit/mL SDV 2mL 280 UNIT SUBCUT ×2 (00:23→11:28)
[2021-06-04] MEDS: D5-NS 0.45% + KCL 20 mEq 20 MEQ/1,000 ML BAG 100 MEQ IV ×2 (00:25→08:13)
[2021-06-04 07:03] LABS: Basophils % 0.1 %; Eosinophils % 0.1 %; Hematocrit 35.2 % (37.0-47.0); Hemoglobin 11.4 g/dL (11.5-15.3); Lymphocytes # 0.9 10^3/uL (0.8-4.8); Lymphocytes % 7.3 %; Mean Corpuscular HGB Conc 32.4 g/dL (30.0-36.0); Mean Corpuscular Hemoglobin 29.2 pg (28.0-34.0); Mean Platelet Volume 11.4 fL (7.4-10.4); Monocytes # 0.6 10^3/uL (0.2-0.9); Monocytes % 4.7 %; Neutrophils # 10.09 10^3/uL (1.8-7.7); Neutrophils % 87.2 %; Nucleated Red Blood Cells % 0 %; Platelet Count 144 10^3/cmm (130-400); Red Blood Count 3.91 10^6/uL (4.1-5.3); Red Cell Distribution Width 13.3 % (12.1-15.1); White Blood Count 11.6 10^3/uL (4.0-10.0)
[2021-06-04 07:20] LABS: Alanine Aminotransferase 24 U/L (0-33); Albumin Level 3.1 g/dL (3.5-5.2); Alkaline Phosphatase 217 IU/L (35-105); Anion Gap 12.5 (5-19); Aspartate Amino Transferase 36 U/L (0-32); Blood Urea Nitrogen 14 mg/dL (8-23); Carbon Dioxide 24 mmol/L (22-29); Chloride 114 mmol/L (98-107); Creatinine Clr Calc Pharmacy 63.2825; Globulin 2.2 g/dL (1.3-4.6); Glomerular Filtration Rate 63.4 mL/min (90-130); Glucose 121 mg/dL (65-115); Lipase 40 U/L (13-60); Magnesium 1.6 mg/dL (1.7-2.3); Osmolality Calculated 306 mOsm/kg (285-295); Potassium 3.5 mmol/L (3.5-5.1); Sodium 147 mmol/L (136-145); Total Bilirubin 0.3 mg/dL (0.15-1.2); Total Protein 5.3 g/dL (6.6-8.7)
[2021-06-04] MEDS: potassium chloride ER 10 mEq Tablet PO (08:08)
[2021-06-04] MEDS: atorvastatin 40 mg Tablet 80 MG PO (08:08)
[2021-06-04] MEDS: dilTIAZem ER (24HR) 180 mg Capsule PO (08:08)
[2021-06-04] MEDS: methadone 10 mg Tablet 5 MG PO ×2 (08:08→17:25)
[2021-06-04] MEDS: ondansetron 2 mg/ML SDV 2 mL 4 MG IVP (08:11)
--- NOTE | 2021-06-04 15:36 | P.PN_ITS ---
Subjective Subjective: Interval history: No acute events overnight. Patient continues to remain nauseous without any vomiting. As per nurse patient has not had any oral intake as she is scared because of nausea. Discussed in detail with the patient regarding need to try clear liquid diet. Patient is agreeable. Has remained hemodynamically stable and afebrile. Continues to remain on room air. Vitals/I&O/Wt Last Vital Signs Temp 98.1 F 06/04/21 15:29 Pulse 98 06/04/21 15:29 Resp 16 06/04/21 15:29 BP 154/85 06/04/21 15:29 Pulse Ox 90 06/04/21 15:29 06/04/21 06/04/21 06/04/21 06:59 14:59 22:59 Intake Total 1000 / 3554.5 900 / 900 Balance 1000 / 3554.5 900 / 900 Weight last 48 hrs Weight 69.127 kg Weight 69.763 kg Weight 70.307 kg Physical Exam Const: COMMON NORMALS: no acute distress and patient oriented x3 HENMT: COMMON NORMALS: oropharynx normal Neck/C-Spine: COMMON NORMALS: no JVD Resp: COMMON NORMALS: normal respiratory effort and clear to auscultation bilaterally AUSCULTATION: clear to auscultation bilaterally Cardio: COMMON NORMALS: no JVD, regular rhythm, S1 normal heart sound present, S2 normal heart sound present and No murmurs present (Cardio) RHYTHM: regular rhythm HEART SOUNDS: S1 normal heart sound present and S2 normal heart sound present GI: COMMON NORMALS: Normal to inspection, nondistended, normoactive bowel s ounds present and Soft to palpation PALPATION: Yes Soft to palpation and Yes Tenderness to palpation present (GI) Extremity: COMMON NORMALS: no joint enlargement and no pedal edema Neuro: COMMON NORMALS: patient oriented x3 and moves all extremities Skin: COMMON NORMALS: no rashes or lesions noted GENERAL SKIN EXAM: no rashes or lesions noted Data : 06/04/21 05:50 06/04/21 05:50 Micro: Microbiology 06/02/21 10:35 Urine Culture - Final Urine,Clean Catch A&P Assessment and plan (1) Acute pancreatitis: Triglycerides within normal limits. MRCP negative for gallstones. Most likely secondary to extreme hypercalcemia on admission. MRCP did show intrahepatic biliary duct dilatation, moderate severity dilatation hence cannot rule out outside compression. Continued IV fluids with D5 half NS with 20 mg of potassium at 100 cc/h. Zofran as needed. Morphine as needed for hours. Encouraged to take clear liquid diet. Discussed in detail with patient regarding multiple small meals. Status: Acute (2) Common bile duct dilation: Understands in case of persistent pancreatitis may still need transfer to outlying hospital for GI evaluation, possible EUS, possible ERCP. Would otherwise set up follow-up with gastroenterology after discharge for additional evaluation. Status: Acute (3) Intrahepatic bile duct dilation: Status: Acute (4) Hypercalcemia: States is chronic. Unclear etiology. PTH elevated. Continue with IV fluids. Continue with calcitonin and additionally post 1 dose of pamidronate. Thyroid ultrasound appreciated, consistent with possible parathyroid adenoma. We will check nuclear study to confirm. Status: Acute (5) UTI (urinary tract infection): Possible UTI. Follow-up urine culture. Ceftriaxone. Status: Acute (6) CHANDA (acute kidney injury): Resolved. Hold lisinopril. Treatment for hypercalcemia as above. Status: Acute (7) Hypokalemia: Resolved. Repeat BMP in evening. Status: Acute (8) Hypomagnesemia: Received replacement. Follow-up magnesium level. Status: Acute (9) GERD (gastroesophageal reflux disease): Findings consistent with GERD noted on imaging. Consider referral for endoscopic evaluation after discharge. Start PPI. Status: Acute (10) Parathyroid adenoma: Status: Acute (11) Hypernatremia: Most likely secondary to poor oral intake. Continue with D5 half NS. Increase the rate to 125 cc/h. Repeat BMP in evening. Status: Acute Additional A&P Information Methadone therapy: Please confirm with clinic regarding dose on Thursday. Full code. Clear liquid diet. Lovenox for DVT prophylaxis. Protonix for PUD prophylaxis Attestations Medical Necessity Statement*: Requires further hospitalization for management of pancreatitis leading to poor oral intake, dehydration, hypernatremia, severe hypercalcemia leading to pancreatitis while diet is advanced Time Spent in Patient Care: Greater than 35 minutes (>than 50% of time spent in counselling and/or direct pt care on unit) . Coding Level of Care Code Acute Civil Engineering Designer for [facility] Fw Diagnoses Acute pancreatitis K85.90 Common bile duct dilation K83.8 Intrahepatic bile duct dilation K83.8 Hypercalcemia E83.52 UTI (urinary tract infection) N39.0 CHANDA (acute kidney injury) N17.9 Hypokalemia E87.6 Hypomagnesemia E83.42 GERD (gastroesophageal reflux disease) K21.9 Parathyroid adenoma D35.1 Hypernatremia E87.0
[2021-06-04 16:01] LABS: Anion Gap 11.3 (5-19); Blood Urea Nitrogen 11 mg/dL (8-23); Calcium 10.2 mg/dL (8.5-10.5); Carbon Dioxide 24 mmol/L (22-29); Chloride 111 mmol/L (98-107); Creatinine Clr Calc Pharmacy 63.2825; Glomerular Filtration Rate 63.4 mL/min (90-130); Glucose 109 mg/dL (65-115); Osmolality Calculated 296 mOsm/kg (285-295); Potassium 3.3 mmol/L (3.5-5.1); Sodium 143 mmol/L (136-145)
--- NOTE | 2021-06-04 17:19 | NM_ITS ---
WS: [id number] INDICATION: Parathyroid adenoma TECHNIQUE: Nuclear medicine parathyroid scintigraphy with 19.9 mCi technetium 99m sestamibi with init ial and 2 hour delayed imaging. COMPARISON: Thyroid ultrasound June 03, 2021 FINDINGS: Normal thyroid uptake on the initial imaging. More focal area of intense uptake in the righ t mid and upper thyroid lobe which persists on the delayed imaging suspicious for parathyroid adenoma . Remainder of the thyroid normally washes out. This likely corresponds to the nodule seen on the rec ent ultrasound. NM/NM parathyroid [id number] IMPRESSION: Suspected right mid to upper parathyroid adenoma
[2021-06-04] MEDS: D5-NS 0.45% + KCL 20 mEq 20 MEQ/1,000 ML BAG 125 MEQ IV (17:26)
[2021-06-04] MEDS: enoxaparin 40 mg/0.4 mL Syringe SUBCUT (19:57)
[2021-06-04] MEDS: cefTRIAXone 1,000 MG in sodium chloride 0.9% (plus) 50 ML 100 MG IV (19:57)
[2021-06-05] VITALS: BP 142/84; PULSE 83; RESP 18; TEMP 36.8; O2SAT 91
[2021-06-05] MEDS: calcitonin,salmon 200 unit/mL SDV 2mL 280 UNIT SUBCUT ×2 (00:05→17:16)
[2021-06-05] MEDS: D5-NS 0.45% + KCL 20 mEq 20 MEQ/1,000 ML BAG 125 MEQ IV ×2 (01:35→08:40)
[2021-06-05 04:00] VITALS: BP 158/88; PULSE 88; RESP 18; TEMP 36.9; O2SAT 92
[2021-06-05 06:42] LABS: Basophils % 0.1 %; Eosinophils # 0.1 10^3/uL (0.0-0.8); Eosinophils % 0.8 %; Hematocrit 36.6 % (37.0-47.0); Hemoglobin 11.7 g/dL (11.5-15.3); Lymphocytes # 1.2 10^3/uL (0.8-4.8); Lymphocytes % 10.8 %; Mean Corpuscular Hemoglobin 29.1 pg (28.0-34.0); Mean Platelet Volume 11.6 fL (7.4-10.4); Monocytes # 0.4 10^3/uL (0.2-0.9); Monocytes % 3.6 %; Neutrophils # 9.53 10^3/uL (1.8-7.7); Neutrophils % 84.1 %; Nucleated Red Blood Cells % 0 %; Platelet Count 185 10^3/cmm (130-400); Red Blood Count 4.02 10^6/uL (4.1-5.3); Red Cell Distribution Width 13.2 % (12.1-15.1); White Blood Count 11.3 10^3/uL (4.0-10.0)
[2021-06-05 07:36] LABS: Alanine Aminotransferase 34 U/L (0-33); Albumin Level 3.1 g/dL (3.5-5.2); Alkaline Phosphatase 285 IU/L (35-105); Anion Gap 18.4 (5-19); Aspartate Amino Transferase 58 U/L (0-32); Blood Urea Nitrogen 10 mg/dL (8-23); Calcium 10.6 mg/dL (8.5-10.5); Carbon Dioxide 20 mmol/L (22-29); Chloride 108 mmol/L (98-107); Globulin 2.7 g/dL (1.3-4.6); Glomerular Filtration Rate 56.2 mL/min (90-130); Glucose 109 mg/dL (65-115); Magnesium 1.2 mg/dL (1.7-2.3); Osmolality Calculated 296 mOsm/kg (285-295); Potassium 3.4 mmol/L (3.5-5.1); Sodium 143 mmol/L (136-145); Total Bilirubin 0.3 mg/dL (0.15-1.2); Total Protein 5.8 g/dL (6.6-8.7)
[2021-06-05] MEDS: atorvastatin 40 mg Tablet 80 MG PO (07:40)
[2021-06-05] MEDS: dilTIAZem ER (24HR) 180 mg Capsule PO (07:40)
[2021-06-05 07:41] VITALS: BP 143/83; PULSE 78; RESP 16; O2SAT 95
[2021-06-05] MEDS: methadone 10 mg Tablet 5 MG PO (07:41)
[2021-06-05] MEDS: potassium chloride ER 10 mEq Tablet PO (07:41)
--- NOTE | 2021-06-05 11:02 | PC.CHAP ---
Pastoral Care Encounter/Spiritual Assessment Type of Contact [] Declined volleyball referee visit [] Patient/Family/Request visit [] Outpatient visit [] Follow-up visit [] Physician referral [] Code/Alert [x] Routine visit [] Staff referral [] Actively dying [] Patient sleeping [] Family support [] [] Out of room [] Palliative care [] [] Receiving care in room [] Pre-surgical visit [] Trauma [] Long length of stay [] ICU visit [] Other: Relational/Emotional Strength [x] Patient feels connected with others/family/visitors/staff [] Distress [] Loneliness/isolation [] Abandonment Spirituality of Patient [x] Person of Vickie [x] Attends Sikhism of their Vickie [x] Believes in Prayer [] Reads Bible or Lutheran materials [] There are Spiritual issues to be addressed [employer] Interventions [x] Prayer [x] Active listening [x] Non-anxious presence [x] Spiritual/emotional support [] Crisis/trauma care [] Spiritual counseling [] Bereavement support [] Provided bereavement packet [] Provided Bible/devotional materials [] Provided toy/stuffed animal, coloring book to patient or family member [] Provided Communion [] Anointing/[place] [] Salvation [x] Completed spiritual assessment [] Other: Impact on Illness or Injury [] Angry [] Fearful [] Anxious [] Often cries [] Exhaustion [] Unable to work [] Unable to attend baptism [] Unable to walk/stand [] Unable to read [] Unable to drive [] Unable to eat/drink [] Unable to sleep [] Unable to be with family [] Patient intubated [] Other: Summary Time spent with patient 10 min
[2021-06-05 12:00] VITALS: BP 127/68; PULSE 73; RESP 18; TEMP 36.7; O2SAT 94
--- NOTE | 2021-06-05 12:45 | P.DS_ITS ---
Discharge Providers Date of Admission: 06/02/21 16:50 Date of Discharge: June 05, 2021 Attending Provider at Admission: Carrillo Torres Attending Provider at Discharge: Gerardo Belcher MD Primary Care Provider: Merlin Slade MD Diagnoses at Discharge Discharge Diagnosis (1) Acute pancreatitis: Status: Acute (2) Common bile duct dilation: Status: Acute (3) Intrahepatic bile duct dilation: Status: Acute (4) Hypercalcemia: Status: Acute (5) UTI (urinary tract infection): Status: Acute (6) CHANDA (acute kidney injury): Status: Acute (7) Hypokalemia: Status: Acute (8) Hypomagnesemia: Status: Acute (9) GERD (gastroesophageal reflux disease): Status: Acute (10) Parathyroid adenoma: Status: Acute (11) Hypernatremia: Status: Acute Reason for Visit Reason for Visit: N/V, HEADACHE, ABD PAINS, WEAKNESS Hospital Course Hospital Course History as per H&P P: Pleasant 61-year-old lady with history of HTN, hypercalcemia for which she has been following with her primary provider, has been feeling unwell for a while, feeling some decrease in alertness/cognition, constipation, presented with several days of nausea and vomiting, mid abdominal pain. In ER with noted hypokalemia, hypercalcemia, calcium 16.6, recheck 16.8. Hypomagnesemia 1.6. Alk phos 168 with normal T bili and transaminases. Lipase 638. Chest x-ray with nonspecific widened mediastinum with lobulated appearance of right peritracheal region. Bibasilar atelectasis. No consolidation. CT chest abdomen pelvis obtained with finding of no acute pathology in the chest, imaging findings suggestive of GERD, in the abdomen noted acute pancreatitis, moderate extrahepatic and mild intrahepatic biliary ductal dilation, slight increased attenuation of liver surrounding gallbladder possible representing fat sparing or mild secondary hyperemia. MRCP showed imaging findings of acute pancreatitis involving the body and tail. No discrete peripancreatic fluid collection seen. No mass lesions seen. No ductal dilation. Moderate extrahepatic and mild intra hepatic biliary ductal dilation without evidence of choledocholithiasis. Mild hepatic steatosis with calculated past fraction of 20.2%. Discussing findings with her, as it is unclear why there is intra and extrahepatic biliary ductal dilation, no choledocholithiasis identified, but cannot exclude stricture or other causes potentially leading to unimproving pancreatitis until addressed, consideration given to transfer to outside facilities, however, recently with lack of beds associated with the current pandemic surge, she is willing to stay here to initiate additional assessment and treatment and reassess tomorrow with consideration of further course of action depending on whether her condition is improving. Hospital course: Patient was admitted for further evaluation and management of pancreatitis. She was treated conservatively with bowel rest and IV hydration. Multiple electrolyte normalities including hypokalemia, hypomagnesia and hypocalcemia were addressed. Hypokalemia and hypomagnesia were replaced. For hypercalcemia further evaluation was done which showed elevated PTH and thyroid ultrasound showing a possible parathyroid adenoma which was confirmed with nuclear study. She was started on calcitonin subcu injection and Giurgius was also given 1 dose of pamidronate. Patient responded well to the treatment with improvement in symptoms for pancreatitis and resolution of hypercalcemia. It is believed her pancreatitis could be from external compression of hepatic duct leading to intrahepatic and CBD dilatation versus pancreatitis secondary to extensive hypercalcemia. Patient is not discharging imminently stable condition on full liquid diet with advised to advance very gradually to brat diet within the next few days. She is advised to follow-up with her primary care provider within the next 7 to 10 days with a blood pressure diary for adjustment of antihypertensives. For now she is not to take lisinopril. She is also advised to follow-up with guard rail installer within the next 2 weeks for further evaluation and management of parathyroid adenoma. She is to take Cinacalcet for now for hypercalcemia. Discharge plan was discussed in detail with patient and patient's caregiver at bedside and they verbalized understanding. Physical Exam Const: COMMON NORMALS: no acute distress and patient oriented x3 OTHER: Slightly delayed responses HENMT: COMMON NORMALS: oropharynx normal Neck/C-Spine: COMMON NORMALS: no JVD Resp: COMMON NORMALS: normal respiratory effort and clear to auscultation bilaterally AUSCULTATION: clear to auscultation bilaterally Cardio: COMMON NORMALS: no JVD, regular rhythm, S1 normal heart sound present, S2 normal heart sound present and No murmurs present (Cardio) RHYTHM: regular rhythm HEART SOUNDS: S1 normal heart sound present and S2 normal heart sound present GI: COMMON NORMALS: Normal to inspection, nondistended, normoactive bowel sounds present and Soft to palpation PALPATION: Yes Soft to palpation and Yes Tenderness to palpation present (GI) Extremity: COMMON NORMALS: no joint enlargement and no pedal edema Neuro: COMMON NORMALS: patient oriented x3 and moves all extremities Skin: COMMON NORMALS: no rashes or lesions noted GENERAL SKIN EXAM: no rashes or lesions noted Discharge Data Data Completed and Pending: Completed Studies During Hospitalization Category Date Time Status CT chest abd pel w con* Urgent Cat Scan 06/02/21 10:53 Completed XR chest 1V delisa ble [id number] Urgent Exams 06/02/21 10:53 Completed MR MRCP [id number] Sta t MRI 06/02/21 15:15 Completed NM parathyroid 78 070 Routine Nuc Med 06/04/21 17:19 Completed US thyroid [id number] Routine Ultrasound 06/03/21 13:53 Completed Pending at discharge Category Date Time Status Vitamin D 1,25 Di hydroxy Routine Lab 06/02/21 19:52 Received Labs from last 24 hours 06/05/21 06/05/21 06/04/21 05:08 05:08 15:33 WBC 11.3 H RBC 4.02 L Hgb 11.7 Hct 36.6 L MCV 91.0 MCH 29.1 MCHC 32.0 RDW 13.2 Plt Count 185 MPV 11.6 H Neut % (Auto) 84.1 Lymph % (Auto) 10.8 [place] % (Auto) 3.6 Eos % (Auto) 0.8 Baso % (Auto) 0.1 Neut # (Auto) 9.53 H Lymph # (Auto) 1.2 [place] # (Auto) 0.4 Eos # (Auto) 0.1 Baso # (Auto) 0.0 Nucleated RBC % (a uto) 0 Nucleated RBCs # 0.0 Sodium 143 143 Potassium 3.4 L 3.3 L Chloride 108 H 111 H Carbon Dioxide 20 L 24 Anion Gap 18.4 11.3 BUN 10 11 Creatinine 1.0 H 0.9 GFR Calculation 56.2 L 63.4 L Glucose 109 109 Calculated Osmolal ity 296 H 296 H Calcium 10.6 H 10.2 Magnesium 1.2 L Total Bilirubin 0.3 AST 58 H ALT 34 H Alkaline Phosphata se 285 H Total Protein 5.8 L Albumin 3.1 L Globulin 2.7 Addt'l Data from Hospital Stay: Radiology Impressions Chest X-Ray 06/02/21 10:53 IMPRESSION: 1. Nonspecific widened mediastinum with thickened lobulated appearance of the right paratracheal region. Further evaluation with CT chest is recommended. 2. Bibasilar atelectasis. No consolidation. Chest/Abdomen/Pelvis CT 06/02/21 10:53 IMPRESSION: 1. No acute pathology in the chest. 2. Imaging findings suggestive of gastroesophageal reflux. IMPRESSION: 1. Imaging findings of acute pancreatitis. 2. Moderate extrahepatic and mild intrahepatic biliary ductal dilatation. 3. Slight increased attenuation of the liver surrounding the gallbladder, which may represent fat sparing or mild secondary hyperemia. ADDENDUM: 06/02/21 1642 IMPRESSION: 1. No acute pathology in the chest. 2. Imaging findings suggestive of gastroesophageal reflux. IMPRESSION: 1. Imaging findings of acute pancreatitis. 2. Moderate extrahepatic and mild intrahepatic biliary ductal dilatation. 3. Slight increased attenuation of the liver surrounding the gallbladder, which may represent fat sparing or mild secondary hyperemia. Cholangiopancreatography MRI 06/02/21 15:15 IMPRESSION: 1. Imaging findings of acute pancreatitis involving the body and tail. No discrete peripancreatic fluid collection seen. No mass lesion seen. No ductal dilatation. 2. Moderate extrahepatic and mild intrahepatic biliary ductal dilatation, without evidence of choledocholithiasis. 3. Mild hepatic steatosis, with calculated fat fraction of 20.2%. Thyroid Ultrasound 06/03/21 13:53 IMPRESSION: 1. Hypoechoic well-circumscribed right mid thyroid or parathyroid lesion with peripheral vascularity measuring 1.0 x 1.8 x 2.2 CM. Considering clinical history this may represent a parathyroid adenoma. Recommend further evaluation with Nuclear medicine parathyroid scintigraphy 2. Additional smaller hypoechoic nodules described above. Parathyroid Scan Nuclear Medicine 06/04/21 17:19 IMPRESSION: Suspected right mid to upper parathyroid adenoma Laboratory Results WBC 11.3 10^3/uL (4.0 -10.0) H 06/05/21 05:08 RBC 4.02 10^6/uL (4.1 -5.3) L 06/05/21 05:08 Hgb 11.7 g/dL (11.5-1 5.3) 06/05/21 05:08 Hct 36.6 % (37.0-47.0 ) L 06/05/21 05:08 MCV 91.0 fl (81-99) 06/05/21 05:08 MCH 29.1 pg (28.0-34. 0) 06/05/21 05:08 MCHC 32.0 g/dL (30.0-3 6.0) 06/05/21 05:08 RDW 13.2 % (12.1-15.1 ) 06/05/21 05:08 Plt Count 185 10^3/cmm (130 -400) 06/05/21 05:08 MPV 11.6 fL (7.4-10.4 ) H 06/05/21 05:08 Neut % (Auto) 84.1 % 06/05/21 05:08 Lymph % (Auto) 10.8 % 06/05/21 05:08 [place] % (Auto) 3.6 % 06/05/21 05:08 Eos % (Auto) 0.8 % 06/05/21 05:08 Baso % (Auto) 0.1 % 06/05/21 05:08 Neut # (Auto) 9.53 10^3/uL (1.8 -7.7) H 06/05/21 05:08 Lymph # (Auto) 1.2 10^3/uL (0.8- 4.8) 06/05/21 05:08 [place] # (Auto) 0.4 10^3/uL (0.2- 0.9) 06/05/21 05:08 Eos # (Auto) 0.1 10^3/uL (0.0- 0.8) 06/05/21 05:08 Baso # (Auto) 0.0 10^3/uL (0.0- 0.1) 06/05/21 05:08 Nucleated RBC % (a uto) 0 % 06/05/21 05:08 Nucleated RBCs # 0.0 /100WBC 06/05/21 05:08 Sodium 143 mmol/L (136-1 45) 06/05/21 05:08 Potassium 3.4 mmol/L (3.5-5 .1) L 06/05/21 05:08 Chloride 108 mmol/L (98-10 7) H 06/05/21 05:08 Carbon Dioxide 20 mmol/L (22-29) L 06/05/21 05:08 Anion Gap 18.4 (5-19) 06/05/21 05:08 BUN 10 mg/dL (8-23) 06/05/21 05:08 Creatinine 1.0 mg/dL (0.5-0. 9) H 06/05/21 05:08 GFR Calculation 56.2 mL/min (90-1 30) L 06/05/21 05:08 Glucose 109 mg/dL (65-115 ) 06/05/21 05:08 Calculated Osmolal ity 296 mOsm/kg (285- 295) H 06/05/21 05:08 Lactic Acid 2.2 mmol/L (0.5-2 .2) 06/02/21 12:02 Lactic Acid (Sepsi s) 1.3 mmol/L (0.5-2 .2) 06/02/21 16:37 Calcium 10.6 mg/dL (8.5-1 0.5) H 06/05/21 05:08 Magnesium 1.2 mg/dL (1.7-2. 3) L 06/05/21 05:08 Total Bilirubin 0.3 mg/dL (0.15-1 .2) 06/05/21 05:08 AST 58 U/L (0-32) H 06/05/21 05:08 ALT 34 U/L (0-33) H 06/05/21 05:08 Alkaline Phosphata se 285 IU/L (35-105) H 06/05/21 05:08 Troponin T Baselin e 31 ng/L (0-10) H 06/02/21 10:35 Troponin T 120 Min [place] 32.11 ng/L (0-10) H 06/02/21 13:24 Delta Troponin T 1.11 ABS# (0-10) 06/02/21 13:24 Troponin T Hi Sens 6Hr 34.66 ng/L (0-10) H 06/02/21 16:37 Troponin T Hi Sens 6Hr Delta 3.66 ng/L (0-12) 06/02/21 16:37 Total Protein 5.8 g/dL (6.6-8.7 ) L 06/05/21 05:08 Albumin 3.1 g/dL (3.5-5.2 ) L 06/05/21 05:08 Globulin 2.7 g/dL (1.3-4.6 ) 06/05/21 05:08 Triglycerides 100 mg/dL (0-150) 06/02/21 16:37 Lipase 40 U/L (13-60) 06/04/21 05:50 25-OH Vitamin D To scarlett > 100 ng/mL (30-1 00) H 06/02/21 16:37 TSH 0.98 uIU/mL (0.27 -4.20) 06/02/21 13:24 PTH Intact 163.5 pg/mL (15-6 5) H 06/02/21 19:52 Calcium (PTH Intac t) 16.5 mg/dL (8.5-1 0.5) H* 06/02/21 19:52 Urine Color Yellow (Yellow) 06/02/21 10:35 Urine Appearance Sl hazy (CLEAR) 06/02/21 10:35 Urine pH 5 (5-7) 06/02/21 10:35 Ur Specific Gravit y 1.025 (1.005-1.0 30) 06/02/21 10:35 Urine Protein 1+ (Negative) H 06/02/21 10:35 Urine Glucose (UA) 1+ (Normal) H 06/02/21 10:35 Urine Ketones Negative (Negati ve) 06/02/21 10:35 Urine Blood 3+ (Negative) H 06/02/21 10:35 Urine Nitrate Negative (Negati ve) 06/02/21 10:35 Urine Bilirubin Neg (Negative) 06/02/21 10:35 Urine Urobilinogen Norm mg/dL (Negat chad) 06/02/21 10:35 Ur Leukocyte Marcelle ase 1+ (Negative) H 06/02/21 10:35 Urine RBC 5-10 /hpf (0-2) H 06/02/21 10:35 Urine WBC 10-15 /hpf (0-5) H 06/02/21 10:35 Ur Squamous Epith Cells 5-10 /hpf (0-5) H 06/02/21 10:35 Amorphous Sediment Not Reportable 06/02/21 10:35 Urine Bacteria 1+ /hpf (NONE) H 06/02/21 10:35 Hyaline Casts 5-10 /lpf H 06/02/21 10:35 Fine Granular Cast s 5-10 /lpf H 06/02/21 10:35 Urine Mucus 1+ /hpf 06/02/21 10:35 SARS-CoV-2 Ag (Rap id) Negative (Negati ve) 06/02/21 11:18 Vitals: Last Vital Signs Temp 98.1 F 06/05/21 12:00 Pulse 73 06/05/21 12:00 Resp 18 06/05/21 12:00 BP 127/68 06/05/21 12:00 Pulse Ox 94 06/05/21 12:00 Discharge Plan Discharge Patient Disposition: Home Condition: Stable Prescriptions: New Zofran 4 mg tablet 4 mg PO TID PRN (Reason: nausea and vomiting) 4 Days Qty: 12 RF: 0 magnesium oxide 400 mg (241.3 mg magnesium) tablet 400 mg PO DAILY Qty: 30 RF: 0 cinacalcet 30 mg tablet 30 mg PO BID Qty: 30 RF: 0 Continued atorvastatin 80 mg tablet 80 mg PO DAILY RF: 0 diltiazem HCl 180 mg capsule,extended release 24hr 180 mg PO DAILY RF: 0 methadone 5 mg tablet 5 mg PO BID RF: 0 Changed potassium chloride 10 mEq capsule, extended release 30 meq PO DAILY Qty: 0 RF: 0 Held lisinopril 20 mg tablet 20 mg PO BID RF: 0 Hold Instructions: Resume on 06/19/21. Discharge Orders: Discharge Order (Routine); Ordered 06/05/21 Ordered By: Gerardo Belcher Referrals: Mis Hendricks MD [Physician] - 2 weeks (Hypercalcemia with parathyroid adenoma) Merlin Slade MD [Primary Care Provider] - 7-10 days Discharge Diet: Advance as tolerated, Soft Mechanical and Full LIquid Discharge Activity: Resume usual activity Patient Instructions: Opioid Safety Activity Restrictions/Additional Instructions: Please continue taking full liquid diet for the next few days and advance gradually to mechanical soft/ground diet including bananas, applesauce, toast, mashed potatoes, broth and then eventually to a regular diet within next 1 week. Please continue to hold off on lisinopril for now. Please monitor your blood pressure daily and maintain a blood pressure chart to follow-up with a primary care provider within the next 1 week to 10 days for further adjustment of antihypertensives. Please follow-up at endocrinology clinic for further evaluation and management of parathyroid adenoma and hypercalcemia leading to pancreatitis. You should get a referral from her primary care provider for GI physician at [place] for further evaluation with ERCP for intraductal hepatic dilatation to rule out external compression. Discharge Attestations Time Spent in Discharge Care*: greater than 30 min Specific Discharge Activities: educating patient, educating and/or supporting family/caregiver, discussing with briefcase sewer/social workers/dc planners, documenting/other paperwork and evaluating patient/reviewing data Status at Discharge: Cognitive status at discharge: cognitively intact , Behavioral status at discharge: cooperative , Functional status at discharge: independent ambulation Overall status at discharge: patient is progressing back to baseline Quality Metrics Clinical Quality Measures During this hospital stay, did patient experience: None Coding Level of Care Code Acute Chg FW DC note Diagnoses Acute pancreatitis K85.90 Common bile duct dilation K83.8 Intrahepatic bile duct dilation K83.8 Hypercalcemia E83.52 UTI (urinary tract infection) N39.0 CHANDA (acute kidney injury) N17.9 Hypokalemia E87.6 Hypomagnesemia E83.42 GERD (gastroesophageal reflux disease) K21.9 Parathyroid adenoma D35.1 Hypernatremia E87.0
[2021-06-05 14:20] VITALS: BP 127/68; PULSE 73; RESP 18; TEMP 36.7; O2SAT 94
[2021-06-06 20:08] LABS: Vit D 1,25 (Oh)2, Total 47 pg/mL (18-72); Vit D2 1,25 (Oh)2 <8 pg/mL; Vit D3 1,25 (Oh)2 47 pg/mL
== END 2021-06-05 18:01 | disposition home or self-care (01) | DRG 439 ==
LOC: ER 17:57 → MEDSURG 06-03 07:26
PROVIDERS: Physician Assistant; Admitting Provider Internal Medicine; Emergency Provider Emergency Medicine; PCP Family Medicine; Visit Provider Student in an Organized Health Care Education/Training Program
DX: K85.90 Acute pancreatitis without necrosis or infection, unspecified (principal); N17.9 Acute kidney failure, unspecified; N39.0 Urinary tract infection, site not specified; J98.11 Atelectasis; K21.9 Gastro-esophageal reflux disease without esophagitis; I10 Essential (primary) hypertension; D35.1 Benign neoplasm of parathyroid gland; E83.52 Hypercalcemia; K59.00 Constipation, unspecified; E87.6 Hypokalemia; E83.42 Hypomagnesemia; K76.0 Fatty (change of) liver, not elsewhere classified; Z79.891 Long term (current) use of opiate analgesic
CPT/HCPCS: 36415; 71045; 71260; 74177; 74181; 76536; 78070; 80048; 80053; 81001; 82306; 82310; 82652; 83605; 83690; 83735; 83970; 84443; 84478; 84484; 85025; 87086; 87426; 93005; 96372; A9500; J0630; J0696; J1650; J2270; J2405; J3475; J3480; J7030; Q9967

== ENCOUNTER 2021-07-24 06:23 | Inpatient (IN) | payer OTHER, SELFPAY ==
[2021-07-24] VITALS (8 sets, daily range): BP systolic 124–182; BP diastolic 62–120; PULSE 61–104; RESP 13–18; TEMP 36.6–36.9; O2SAT 92–97; BMI 21.6
--- NOTE | 2021-07-24 06:42 | PC.NURSE ---
patient received with c/o vomiting for 2 weeks [facility] unable to keep home medications down. [facility] has a scan scheduled today at 1030. abdomen soft. noted with dry heaving in room, IV started and tele in place.
--- NOTE | 2021-07-24 06:50 | ECG_ITS ---
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 Measurements Intervals Black Rate: 89 P: 62 KS: 198 QRS: -17 QRSD: 98 T: 76 QT: 388 QTc: 472 Interpretive Statements SINUS RHYTHM INCOMPLETE RIGHT BUNDLE BRANCH BLOCK [90+ ms QRS DURATION, TERMINAL R IN V1/V2, 40+ ms S IN I/aVL/V4/V5/V6] NONSPECIFIC ST & T-WAVE ABNORMALITY Compared to ECG 06/02/2021 17:49:02 Incomplete right bundle-branch block now present Sinus tachycardia no longer present T-wave abnormality still present Electronically Signed On 07-24-2021 16:00:50 WEB PRESS OPERATOR APPRENTICE by Luke Bautista M.D. [id number]
--- NOTE | 2021-07-24 06:50 | XRR_ITS ---
PROCEDURE INFORMATION: Exam: XR Abdomen Exam date and time: 07/24/2021 6:50 AM Age: 61 years old Clinical indication: Nausea and vomiting; Abdominal pain; Localized; Left lower quadrant (llq); Prior surgery; Surgery type: Hysterectomy; Patient HX: Lower abd pain, nausea, vomiting x 2 wks; Additional info: N/v TECHNIQUE: Imaging protocol: XR of the abdomen. Views: Frontal supine view of the abdomen. 1 View. COMPARISON: MR MRCP [id number] 06/02/2021 3:24 PM FINDINGS: Gastrointestinal tract: Mild small bowel dilatation in the pelvis, along with prominent stool. Bones/joints: Mild scoliosis and degenerative change. XR/XR abdomen 1V* [id number] IMPRESSION: Mild small bowel dilatation in the pelvis, along with prominent stool.
--- NOTE | 2021-07-24 06:52 | W.ED.NAVMDI ---
HPI - Nausea/Vomiting/Diarrhea General: Chief complaint: Nausea/Vomiting/Diarrhea Stated complaint: N/V, Dizzy Time Seen by Provider: 07/24/21 06:39 Source: patient and family () Mode of arrival: ambulatory Limitations: no limitations History of Present Illness: Patient reports that she has had continued nausea vomiting for approximately 6 weeks. She states she was hospitalized here about 6 weeks ago for same problem. See previous ER record. Patient was found to have low magnesium and slightly elevated calcium. Patient has since been following up with her primary care doctor. She was sent to the specialist and thought that she may have a problem with her parathyroid. She is scheduled to have a scan of her parathyroid today but patient stated she was too sick to go the scan and came here instead. She states she was she was feeling weak and fatigued today. She states she has been taking potassium and magnesium supplements but has not taken them very often due to them making her nauseated. She denies any diarrhea. She states the emesis has been clear. She denies any fever or chills. Possible history includes hypertension but she was told to discontinue her blood pressure medication. Her blood pressure presently is 180/120. Telemetry shows a heart rate of 109. She states she is allergic to Compazine. Past surgical history includes hysterectomy and . She denies tobacco use or alcohol use. She denies any abdominal pain or chest pain. Associated nausea: Yes Associated symtoms: Reports dizziness, fatigue, malaise and nausea; Denies anxiety, change in vision, chest pain, fevers/chills or short of breath Review of Systems Const: Reports: fatigue and malaise Eyes: Denies: change in vision ENMT: Denies: throat pain Card: Denies: chest pain Resp: Denies: dyspnea or wheezing GI: Reports: nausea and vomiting; Denies: abdominal pain, hematemesis, diarrhea, hematochezia or melena : Denies: flank pain Musc: Denies: neck pain or back pain Skin/Breast: Denies: rash or pruritus Neuro: Reports: dizziness Psych: Denies: anxiety Harpreet/Lymph: Denies: enlarged lymph nodes PFSH ED PFSH: Medical History Common bile duct dilation Constipation GERD (gastroesophageal reflux disease) HTN (hypertension) Hypercalcemia Intrahepatic bile duct dilation No significant past medical history Parathyroid adenoma Surgical History H/O foot surgery History of Family History Father Heart disease Sister Leukemia Social History Smoking and tobacco status: never smoked Alcohol intake: never Lives independently: Yes Household members: spouse Marital status: Current occupational status: unemployed Physical Exam Const: COMMON NORMALS: no acute distress, patient oriented x3, no limitations and well nourished GENERAL APPEARANCE: cooperative HENMT: COMMON NORMALS: normocephalic and atraumatic HEAD & SCALP: normocephalic and atraumatic FACE & SINUS: normal facial exam Eye: COMMON NORMALS: EOMs intact bilaterally Neck/C-Spine: COMMON NORMALS: full ROM, no lymphadenopathy, supple and no meningeal signs GENERAL: Yes normal visual inspection OTHER: I do not feel any thyromegaly Lymph: LYMPHATIC: no lymphadenopathy noted Chest: COMMONS NORMALS: normal inspection of the chest and normal palpation of entire chest wall CHEST: No Ecchymosis present and No rash Resp: COMMON NORMALS: normal respiratory effort, No retractions and clear to auscultation bilaterally EFFORT & INSPECTION: No respiratory distress AUSCULTATION: clear to auscultation bilaterally Cardio: COMMON NORMALS: regular rhythm and Peripheral pulses 2+ throughout JUGULAR VENOUS DISTENTION: no JVD RHYTHM: regular rhythm PERIPHERAL PULSES: Peripheral pulses 2+ throughout OTHER: Mild tachycardia with heart rate of 108 GI: COMMON NORMALS: Normal to inspection, nondistended, normoactive bowel sounds present and non-tender : COMMON NORMALS: Yes no CVA tenderness BLADDER/KIDNEY EXAM: Yes no CVA tenderness Back/Pelvis: COMMON NORMALS: no CVA tenderness Extremity: COMMON NORMALS: normal to inspection, full ROM and capillary refill normal Neuro: COMMON NORMALS: patient oriented x3, CN's II-XII intact bilaterally, no focal motor deficits and no sensory deficits noted MENINGEAL SIGNS: Yes no meningeal signs Psych: COMMON NORMALS: mental status grossly normal and Normal thought process present THOUGHT PROCESS: Normal thought process present Skin: COMMON NORMALS: no rashes or lesions noted and no wounds GENERAL SKIN EXAM: no rashes or lesions noted Course Vital Signs: Vital signs: Vital Signs Temperature 97.8 F 07/24/21 06:33 Pulse Rate 89 07/24/21 08:00 Respiratory Rate 16 07/24/21 08:00 Blood Pressure 166/92 07/24/21 08:00 Pulse Oximetry 97 07/24/21 08:00 MDM - Nausea/Vomiting/Diarrhea Medical Decision Making Nausea vomiting. Possible parathyroid disease. Gastroenteritis. Poor motility Lab Data I reviewed the patient's lab results. : 07/24/21 06:35 07/24/21 07:43 Radiology Impressions Abdomen X-Ray 07/24/21 06:50 IMPRESSION: Mild small bowel dilatation in the pelvis, along with prominent stool. Laboratory Results WBC 8.3 10^3/uL (4.0-10.0) 07/24/21 06:35 RBC 5.21 10^6/uL (4.1-5.3) 07/24/21 06:35 Hgb 14.9 g/dL (11.5-15.3) 07/24/21 06:35 Hct 45.1 % (37.0-47.0) 07/24/21 06:35 MCV 86.6 fl (81-99) 07/24/21 06:35 MCH 28.6 pg (28.0-34.0) 07/24/21 06:35 MCHC 33.0 g/dL (30.0-36.0) 07/24/21 06:35 RDW 12.5 % (12.1-15.1) 07/24/21 06:35 Plt Count 290 10^3/cmm (130-400) 07/24/21 06:35 MPV 11.7 fL (7.4-10.4) H 07/24/21 06:35 Neut % (Auto) 77.1 % 07/24/21 06:35 Lymph % (Auto) 14.5 % 07/24/21 06:35 Ponce % (Auto) 7.1 % 07/24/21 06:35 Eos % (Auto) 0.7 % 07/24/21 06:35 Baso % (Auto) 0.2 % 07/24/21 06:35 Neut # (Auto) 6.39 10^3/uL (1.8-7.7) 07/24/21 06:35 Lymph # (Auto) 1.2 10^3/uL (0.8-4.8) 07/24/21 06:35 Ponce # (Auto) 0.6 10^3/uL (0.2-0.9) 07/24/21 06:35 Eos # (Auto) 0.1 10^3/uL (0.0-0.8) 07/24/21 06:35 Baso # (Auto) 0.0 10^3/uL (0.0-0.1) 07/24/21 06:35 Nucleated RBC % (auto) 0 % 07/24/21 06:35 Nucleated RBCs # 0.0 /100WBC 07/24/21 06:35 Sodium 141 mmol/L (136-145) 07/24/21 07:43 Potassium 2.1 mmol/L (3.5-5.1) L* 07/24/21 07:43 Chloride 93 mmol/L (98-107) L 07/24/21 07:43 Carbon Dioxide 30 mmol/L (22-29) H 07/24/21 07:43 Anion Gap 20.1 (5-19) H 07/24/21 07:43 BUN 31 mg/dL (8-23) H 07/24/21 07:43 Creatinine 1.8 mg/dL (0.5-0.9) H 07/24/21 07:43 GFR Calculation 28.5 mL/min (90-130) L 07/24/21 07:43 Glucose 110 mg/dL (65-115) 07/24/21 07:43 Calculated Osmolality 299 mOsm/kg (285-295) H 07/24/21 07:43 Calcium 17.7 mg/dL (8.5-10.5) H* 07/24/21 07:43 Magnesium 2.2 mg/dL (1.7-2.3) 07/24/21 07:43 Total Bilirubin 0.6 mg/dL (0.15-1.2) 07/24/21 07:43 AST 15 U/L (0-32) 07/24/21 07:43 ALT 11 U/L (0-33) 07/24/21 07:43 Alkaline Phosphatase 138 IU/L (35-105) H 07/24/21 07:43 Total Protein 7.2 g/dL (6.6-8.7) 07/24/21 07:43 Albumin 4.1 g/dL (3.5-5.2) 07/24/21 07:43 Globulin 3.1 g/dL (1.3-4.6) 07/24/21 07:43 Lipase 201 U/L (13-60) H 07/24/21 07:43 TSH 1.06 uIU/mL (0.27-4.20) 07/24/21 07:43 Free T4 1.87 ng/dL (0.82-1.77) H 07/24/21 07:43 Free T3 2.0 PG/ML (2.0-4.4) 07/24/21 07:43 Urine Color Yellow (Yellow) 07/24/21 08:45 Urine Appearance Clear (CLEAR) 07/24/21 08:45 Urine pH 5 (5-7) 07/24/21 08:45 Ur Specific [place] 1.020 (1.005-1.030) 07/24/21 08:45 Urine Protein Trace (Negative) 07/24/21 08:45 Urine Glucose (UA) Norm (Normal) 07/24/21 08:45 Urine Ketones 1+ (Negative) H 07/24/21 08:45 Urine Blood 2+ (Negative) H 07/24/21 08:45 Urine Nitrate Negative (Negative) 07/24/21 08:45 Urine Bilirubin Neg (Negative) 07/24/21 08:45 Urine Urobilinogen Norm mg/dL (Negative) 07/24/21 08:45 Ur Leukocyte Esterase 2+ (Negative) H 07/24/21 08:45 Urine RBC 5-10 /hpf (0-2) H 07/24/21 08:45 Urine WBC 25-40 /hpf (0-5) H 07/24/21 08:45 Ur Squamous Epith Cells 40-55 /hpf (0-5) H 07/24/21 08:45 Amorphous Sediment Not Reportable 07/24/21 08:45 Urine Bacteria 1+ /hpf (NONE) H 07/24/21 08:45 SARS-CoV-2 Ag (Rapid) Negative (Negative) 07/24/21 07:17 Imaging Data KUB: I personally reviewed and interpreted this imaging study as follows: My impression: Nothing acute. No obstruction seen. EKG Data EKG 1: I personally reviewed and interpreted this EKG as follows: EKG interpretation date: 07/24/21 EKG interpretation time: 07:25 Prior EKG tracings: available for review Interpretation: Normal sinus rhythm with heart rate of 89. Nonspecific ST-T changes with mild ST-T segment depression in aVF and V3 V4 V5 V6 and lead II relatively unchanged from EKG June 02, 2021. Normal axis. Normal OH interval. Normal P wave. Normal T waves. Other Data 0930: Discussed with hospitalist Dr. Early. Will admit patient to medical floor. Patient is following up with Dr. Jaffe in ENT. However, has not seen a specialist in [place] yet Critical Care Time Critical Care Time: Critical Care Time: Yes Total Critical Care Time: 35 Attestation: See orders. Patient has hypercalcemia and hypokalemia. Patient received IV potassium. Patient is receiving IV fluids for hypercalcemia and acute kidney injury. Discharge Plan Discharge Patient Disposition: Admitted As Inpatient Clinical Impression: Generalized weakness, Hypokalemia, Hypercalcemia, Acute renal injury due to hypovolemia Nausea & vomiting Qualifiers: Vomiting type: unspecified Qualified Code(s): R11.2 - Nausea with vomiting, unspecified Hypertension Qualifiers: Hypertension type: unspecified Qualified Code(s): I10 - Essential (primary) hypertension Condition: Stable Coding Level of Care Code ED Java Web User Interface Developer for g Fwd Exam Comprehensive
[2021-07-24 07:04] LABS: Basophils % 0.2 %; Eosinophils # 0.1 10^3/uL (0.0-0.8); Eosinophils % 0.7 %; Hematocrit 45.1 % (37.0-47.0); Hemoglobin 14.9 g/dL (11.5-15.3); Lymphocytes # 1.2 10^3/uL (0.8-4.8); Lymphocytes % 14.5 %; Mean Corpuscular Hemoglobin 28.6 pg (28.0-34.0); Mean Corpuscular Volume 86.6 fl (81-99); Mean Platelet Volume 11.7 fL (7.4-10.4); Monocytes # 0.6 10^3/uL (0.2-0.9); Monocytes % 7.1 %; Neutrophils # 6.39 10^3/uL (1.8-7.7); Neutrophils % 77.1 %; Nucleated Red Blood Cells % 0 %; Platelet Count 290 10^3/cmm (130-400); Red Blood Count 5.21 10^6/uL (4.1-5.3); Red Cell Distribution Width 12.5 % (12.1-15.1); White Blood Count 8.3 10^3/uL (4.0-10.0)
[2021-07-24] MEDS: ondansetron 2 mg/ML SDV 2 mL 4 MG IVP ×2 (07:09→13:02)
[2021-07-24] MEDS: hyDRALAzine 20 mg/mL INJ 1 mL 5 MG IVP (07:13)
[2021-07-24] MEDS: sodium chloride 0.9% 1,000 ML 500 ML IV (07:15)
[2021-07-24 08:13] LABS: SARS Covid-2 Antigen Negative (Negative)
[2021-07-24 08:41] LABS: Alanine Aminotransferase 11 U/L (0-33); Albumin Level 4.1 g/dL (3.5-5.2); Alkaline Phosphatase 138 IU/L (35-105); Anion Gap 20.1 (5-19); Aspartate Amino Transferase 15 U/L (0-32); Blood Urea Nitrogen 31 mg/dL (8-23); Carbon Dioxide 30 mmol/L (22-29); Chloride 93 mmol/L (98-107); Globulin 3.1 g/dL (1.3-4.6); Glomerular Filtration Rate 28.5 mL/min (90-130); Glucose 110 mg/dL (65-115); Lipase 201 U/L (13-60); Magnesium 2.2 mg/dL (1.7-2.3); Osmolality Calculated 299 mOsm/kg (285-295); Sodium 141 mmol/L (136-145); Total Bilirubin 0.6 mg/dL (0.15-1.2); Total Protein 7.2 g/dL (6.6-8.7)
[2021-07-24 08:42] LABS: Potassium 2.1 mmol/L (3.5-5.1); Thyroid Stimulating Hormone 1.06 uIU/mL (0.27-4.20)
[2021-07-24 08:43] LABS: Calcium 17.7 mg/dL (8.5-10.5); Free T4 Free Thyroxine 1.87 ng/dL (0.82-1.77)
[2021-07-24 09:20] LABS: Bilirubin Urine Neg (Negative); Blood Urine 2+ (Negative); Glucose Urine UA Norm (Normal); Ketones Urine 1+ (Negative); Leukocyte Esterase Urine 2+ (Negative); Nitrate Urine Negative (Negative); Protein Urine Trace (Negative); Urine Appearance Clear (CLEAR); Urine Color Yellow (Yellow); Urobilinogen Urine Norm (Negative); pH Urine 5 (5-7)
[2021-07-24 09:24] LABS: Add Urine Culture? No; Bacteria Urine 1+ /hpf; Squamous Epithelial Cell Urine 40-55 /hpf (0-5); WBC Urine 25-40 /hpf (0-5)
--- NOTE | 2021-07-24 09:34 | PC.PHAR ---
pt states she takes care of her own medications-pt states she hasnt taken atorvastatin for months rx last filled 04/04/21 30d/s with no refills-pt states dced her diltiazem er 180mg daily last filled 05/02/21 90d/s and lisinopril 20mg bid last filled 02/25/21 90d/s pt states not taken in a month or so-pt was discharged 06/05/21 for kcl 30meq daily pt states Dr Slade changed to 10meq daily last filled 05/27/21 30d/s-
[2021-07-24] MEDS: sodium chloride 0.9% 1,000 ML 999 ML IV ×2 (09:46→11:02)
[2021-07-24] MEDS: potassium chloride premix 100 ML 25 MEQ IV (09:46)
--- NOTE | 2021-07-24 11:24 | PM.HP ---
Providers/Chief Complaint Primary Care Provider: Merlin Slade MD Chief Complaint: N/V, Dizzy History of Present Illness Awa Ren is a 61 year old female who presents today with a 6-week history of worsening nausea vomiting and diarrhea that has gotten progressively worse over the last 2 to 3 days. Patient explained that she has a known parathyroid nodule and was seen in the ED previously for similar symptoms 6 weeks ago. She explains she was at supposed to have a scan today of her nodule but was unable to go because of her current visit to the ED. She explains that her emesis has been clear, denies any hematemesis. She has been unable to eat and drink for the last 2 to 3 weeks due to her nausea and vomiting. She explains that her abdominal pain has mostly been diffuse, but is more recently located to the periumbilical area. Her explains that she does seem to be more foggy lately, but no obvious mental status changes. She denies any polyuria or polydipsia. Denies any fevers or chills. Denies any chest pain. Patient received Tylenol, Zofran, potassium, and fluids in the ED. She relates that her last hospital presentation was similar to this, but she was doing much better by discharge. No blood in her stool, black or tarry stools. No blood in emesis. Review of Systems General: Reports: 10 or more systems reviewed and unremarkable except in HPI and below Const: Denies: fever(s) or chills Eyes: Denies: change in vision or blurry vision ENMT: Denies: nasal congestion Card: Denies: chest pain or palpitations Resp: Reports: non-productive cough (Mostly associated with episodes of emesis); Denies: dyspnea GI: Reports: abdominal pain, nausea and vomiting; Denies: hematemesis : Denies: flank pain, difficulty voiding, dysuria or urinary frequency Musc: Denies: extremity pain or muscle cramps Skin/Breast: Denies: rash Neuro: Denies: behavioral changes or restless legs Psych: Denies: anxiety or depression Endo: Denies: polyuria or polydipsia Harpreet/Lymph: Denies: easy bruising All/Imm: Denies: urticaria Medications/Allergies Home Medications Medication Instructions Recorded Confirmed Last Taken Type methadone 5 mg tablet 5 mg PO BID 06/02/21 07/24/21 07/22/21 History magnesium oxide 400 mg (241.3 mg 400 mg PO DAILY #30 tab 06/05/21 07/24/21 Unknown Rx magnesium) tablet cinacalcet 30 mg tablet 30 mg PO DAILY 07/24/21 07/24/21 Unknown History levothyroxine 100 mcg tablet 100 mcg PO QAM 07/24/21 07/24/21 Unknown History potassium chloride 10 mEq 10 meq PO DAILY 07/24/21 07/24/21 Unknown History capsule,extended release Allergies Allergy/AdvReac Type Severity Reaction Status Date / Time prochlorperazine Allergy ADR-Irritab Verified 07/24/21 09:27 [From Compazine] le PFSH Acute PFSH: Medical History Common bile duct dilation Constipation GERD (gastroesophageal reflux disease) HTN (hypertension) Hypercalcemia Intrahepatic bile duct dilation No significant past medical history Parathyroid adenoma Surgical History (Updated 07/24/21 @ 11:31 by Kavon Early MD) H/O foot surgery History of History of hysterectomy for benign disease Family History Father Heart disease Sister Leukemia Social History Smoking and tobacco status: never smoked Alcohol intake: never Lives independently: Yes Household members: spouse Marital status: Current occupational status: unemployed Vitals/I&O/Wt Last Vital Signs Temp 97.8 F 07/24/21 06:33 Pulse 80 07/24/21 10:52 Resp 16 07/24/21 10:52 BP 156/97 07/24/21 10:52 Pulse Ox 94 07/24/21 10:52 07/23/21 07/24/21 07/24/21 22:59 06:59 14:59 Intake Total 1999 Balance 1999 Weight last 48 hrs Weight 58.967 kg Physical Exam Narrative: General: Ill-appearing female lying in bed. present. HEENT: Normocephalic atraumatic. Pupils equal and round. Neck supple nontender no lymphadenopathy no thyromegaly. Cardiac: Regular rate and rhythm. S1-S2 present. No murmurs rubs or gallops. Peripheral pulse 2+. Respiratory: Clear to auscultation. No wheezes rales or rhonchi. Air entry equal bilaterally. Gastrointestinal: Soft, nondistended. Tender to palpation, most prominently in the left upper quadrant. Normoactive bowel sounds. Extremities: No cyanosis clubbing or edema. No obvious abnormalities present. No posterior calf pain. Neurological: No focal neurological deficits. Tremor involving bilateral hands present on exam that diminishes with movement. Psych: Appropriate mood and affect. Judgment intact. Data : 07/24/21 06:35 07/24/21 07:43 Other Labs: Calcium 17.7 Magnesium 2.2 Liver enzymes normal Alkaline phosphatase 138 Lipase 201 Urinalysis uninterpretable due to contamination, 40-55 urinary epithelial squamous cells present A&P Assessment and plan (1) Hypercalcemia: Markedly abnormal calcium Known abnormal parathyroid hormone and parathyroid adenoma identified on scan. Currently seeing ENT, with plans to perhaps get parathyroid adenoma resected in [place] At this point hydration will be continued as started in the emergency department. Initiate calcitonin, pamidronate Close follow-up of renal function to make sure this improves Status: Acute (2) Hypokalemia: Supplement Recheck BMP following supplementation Status: Acute (3) Acute kidney injury: Close follow-up of renal dysfunction with laboratory Urine is contaminated. Will repeat. Status: Acute (4) Hypertension: She has had quite a bit of vomiting lately. At this point secondary to concern of pancreatitis, will discontinue her methadone. Morphine as needed pain Status: Acute Qualifiers: Hypertension type: unspecified Qualified Code(s): I10 - Essential (primary) hypertension (5) Parathyroid adenoma: See above under hypercalcemia Status: Acute (6) Acute pancreatitis: Check abdominal ultrasound considering pancreatitis was seen on previous imaging Clear liquid diet Pain control Some of her nausea, vomiting, abdominal pain could be secondary to repetitive vomiting Pepcid for GI prophylaxis Status: Acute Plan Full code Heparin for DVT prophylaxis Attestations Medical Necessity Statement*: Will require greater 2 midnight stay for evaluation and treatment of acute kidney injury, hypercalcemia, marked hypokalemia Coding Level of Care Code Acute Linecasting Machine Keyboard Operator for Chg Fwd Diagnoses Hypercalcemia E83.52 Hypokalemia E87.6 Acute kidney injury N17.9 Hypertension I10 Hypertension type: unspecified Parathyroid adenoma D35.1 Acute pancreatitis K85.90
[2021-07-24 12:44] LABS: Calcium 16.2 mg/dL (8.5-10.5)
[2021-07-24 12:46] LABS: Parathyroid Hormone 258.1 pg/mL (15-65)
[2021-07-24] MEDS: sodium chloride 0.9% 1,000 ML 150 ML IV ×2 (12:54→18:10)
[2021-07-24] MEDS: calcitonin,salmon 200 unit/mL SDV 2mL SUBCUT ×2 (13:02→21:22)
--- NOTE | 2021-07-24 14:35 | US_ITS ---
WS: [id number] ULTRASOUND ABDOMEN LIMITED CLINICAL INFORMATION: pancreas COMPARISON: CT and MRCP June 02, 2021 FINDINGS: Liver Size: Mild hepatomegaly Craniocaudal length: 15.8 cm. Echogenicity: Coarse Surface nodularity: None. Mass (size and location): None. Bile ducts Intrahepatic ducts: Normal. Common bile duct diameter: 15 mm. Gallbladder Mild fluid distention Gallstones: None. Gallbladder sludge: None. Gallbladder wall thickening: None. Pericholecystic fluid: None. Sonographic Vaughan sign: Absent. Pancreas Normal as visualized. Right kidney: Normal. Hydronephrosis: None. Size: 10.3 cm x 4.3 cm x 4.7 cm. Abdominal aorta and IVC Visualized portions are normal. Ascites: None. US/US abdomen limited [id number] IMPRESSION: 1. Mild hepatomegaly with diffuse fatty infiltration liver. 2. Mild fluid distention of the gallbladder. No gallbladder wall thickening or pericholecystic fluid. 3. Marked dilatation of the common bile duct measuring 15 mm. This is unchange d since the recent MRCP June 02, [address] June 02, 2021. 4. No hydronephrosis in RIGHT kidney. 5. Pancreas appears normal today. No peripancreatic fluid collections.
[2021-07-24 15:49] LABS: Anion Gap 16.5 (5-19); Blood Urea Nitrogen 25 mg/dL (8-23); Carbon Dioxide 24 mmol/L (22-29); Chloride 105 mmol/L (98-107); Glomerular Filtration Rate 35.2 mL/min (90-130); Glucose 116 mg/dL (65-115); Osmolality Calculated 301 mOsm/kg (285-295); Sodium 143 mmol/L (136-145)
[2021-07-24 15:52] LABS: Potassium 2.5 mmol/L (3.5-5.1)
[2021-07-24 15:53] LABS: Calcium 14.2 mg/dL (8.5-10.5)
[2021-07-24] MEDS: heparin 5,000 unit/mL INJ 1 mL 5000 UNIT SUBCUT (17:19)
[2021-07-24] MEDS: famotidine 20 mg/2 mL INJ IVP (17:19)
[2021-07-24] MEDS: lidocaine 1% 5 ML in potassium chloride premix 100 ML 25 ML IV ×2 (17:24→21:55)
[2021-07-24 20:58] LABS: Anion Gap 18.9 (5-19); Blood Urea Nitrogen 23 mg/dL (8-23); Carbon Dioxide 21 mmol/L (22-29); Chloride 108 mmol/L (98-107); Glomerular Filtration Rate 32.7 mL/min (90-130); Glucose 108 mg/dL (65-115); Osmolality Calculated 304 mOsm/kg (285-295); Potassium 2.9 mmol/L (3.5-5.1); Sodium 145 mmol/L (136-145)
[2021-07-24 20:59] LABS: Calcium 15.2 mg/dL (8.5-10.5)
[2021-07-25] MEDS: sodium chloride 0.9% 1,000 ML 150 ML IV (00:38)
[2021-07-25] MEDS: ondansetron 2 mg/ML SDV 2 mL 4 MG IVP ×2 (00:39→20:49)
[2021-07-25] MEDS: famotidine 20 mg/2 mL INJ IVP ×2 (03:34→15:19)
[2021-07-25] MEDS: heparin 5,000 unit/mL INJ 1 mL 5000 UNIT SUBCUT ×2 (03:35→15:22)
[2021-07-25 04:00] VITALS: BP 164/66; PULSE 97; RESP 16; TEMP 36.6; O2SAT 95
[2021-07-25 05:06] LABS: Basophils % 0.2 %; Hematocrit 39.1 % (37.0-47.0); Hemoglobin 12.4 g/dL (11.5-15.3); Lymphocytes # 0.8 10^3/uL (0.8-4.8); Lymphocytes % 7.8 %; Mean Corpuscular HGB Conc 31.7 g/dL (30.0-36.0); Mean Corpuscular Hemoglobin 29.7 pg (28.0-34.0); Mean Corpuscular Volume 93.8 fl (81-99); Mean Platelet Volume 11.5 fL (7.4-10.4); Monocytes # 0.6 10^3/uL (0.2-0.9); Monocytes % 6.2 %; Neutrophils % 85.3 %; Nucleated Red Blood Cells % 0 %; Platelet Count 261 10^3/cmm (130-400); Red Blood Count 4.17 10^6/uL (4.1-5.3); Red Cell Distribution Width 13.2 % (12.1-15.1); White Blood Count 10.1 10^3/uL (4.0-10.0)
[2021-07-25 05:28] LABS: Alanine Aminotransferase 11 U/L (0-33); Albumin Level 3.8 g/dL (3.5-5.2); Alkaline Phosphatase 127 IU/L (35-105); Anion Gap 18.9 (5-19); Aspartate Amino Transferase 22 U/L (0-32); Blood Urea Nitrogen 21 mg/dL (8-23); Calcium 13.2 mg/dL (8.5-10.5); Carbon Dioxide 20 mmol/L (22-29); Chloride 112 mmol/L (98-107); Globulin 2.8 g/dL (1.3-4.6); Glomerular Filtration Rate 38.1 mL/min (90-130); Glucose 114 mg/dL (65-115); Magnesium 1.5 mg/dL (1.7-2.3); Osmolality Calculated 310 mOsm/kg (285-295); Sodium 148 mmol/L (136-145); Total Bilirubin 0.6 mg/dL (0.15-1.2); Total Protein 6.6 g/dL (6.6-8.7)
[2021-07-25] MEDS: levothyroxine 100 mcg Tablet PO (05:31)
[2021-07-25 05:58] LABS: Potassium 2.9 mmol/L (3.5-5.1)
--- NOTE | 2021-07-25 06:04 | PC.NURSE ---
213 Dr. Arce notified of critical calcium. No new orders.
--- NOTE | 2021-07-25 06:04 | PC.NURSE ---
0602 Dr. Arce notified of K+ 2.9, note new orders.
--- NOTE | 2021-07-25 07:35 | P.PN_ITS ---
Documented by User: HOLLAND Nicoel STDSTEPHEN 07/25/21 09:13 Subjective Subjective: Awa Ren is a 61 year old female that is being managed for hypercalcemia likely secondary to parathyroid adenoma, hypokalemia, acute kidney injury, and pancreatitis. Patient explains that she slept pretty good. Her abdominal pain in minimally improved, but she continues to have significant vomitting. She denies any pain or difficulty with urination, but endorses polyuria. She has not had a bowel movement, explains that she feels the urge to go but is difficult with roomates and in the hospital. Denies fevers, endorses chills throughout the night. Patient seemed to have more difficulty answering qustions today and following along with questions/exam, continued to explain her fatigue. Denies any flank pain or muscle cramps. Medications: Reviewed: Yes Vitals/I&O/Wt Last Vital Signs Temp 97.8 F 07/25/21 04:00 Pulse 97 07/25/21 04:00 Resp 16 07/25/21 04:00 BP 164/66 07/25/21 04:00 Pulse Ox 95 07/25/21 04:00 07/24/21 07/25/21 07/25/21 22:59 06:59 14:59 Intake Total 890 / 3890 970 / 4860 1220 / 1220 Output Total 480 / 480 Balance 890 / 3890 490 / 4380 1220 / 1220 Weight last 48 hrs Weight 60.01 kg Weight 58.967 kg Physical Exam Narrative: General: Thin, ill-appearing female lying in bed. Dry emesis present on bed, chin, and gown. HEENT: Normcephalic, atraumatic. Pupils equal and round. Oropharynx dry, non-erythematous. Cardiac: Regular rate and rhythm. S1 S2 present. No murmurs rubs or gallops. Peripheral pulse 2+. Respiratory: Air entry equal bilaterally. Clear to auscultation. No wheezes rales or rhonchi. GI: Soft, diffusely tender to palpation. Non-distened. Normoactive bowel sounds. Extremities: No obvious abnormalities. No cyanosis, clubbing or edema. Neuro: No focal neurological deficits. Able to tell me her name and location including hospital and city. Seemed to have increased difficulty answering questions and following along. Data : 07/25/21 04:37 07/25/21 04:37 Other Labs: Calcium 13.2 Mg 1.5 A&P Assessment and plan (1) Hypercalcemia: Calcium still significantly elevated but trending downward, now at 13.2 Patient has a known abnormal parathyroid hormone and parathyroid adenoma identified on scan. Currently being followed by ENT, with plans to perhaps get parathyroid adenoma resected in [place] At this point hydration will be continued as started in the emergency department. Continue calcitonin, pamidronate Continue close monitoring of renal function Status: Acute (2) Hypokalemia: Continue supplement KCl IVFs Repeated BMP this morning, patient remains hypokalemic at 2.9. Status: Acute (3) Acute kidney injury: Continue close follow-up of renal dysfunction with laboratory Creatinine 1.4, down from 1.6 yesterday. Repeat UA still pending. Status: Acute (4) Hypertension: Patient continues to have significant amount of vomitting At this point secondary to concern of pancreatitis, will discontinue her methadone, patient explains that she does not regularly use methadone. Continue morphine as needed pain Status: Acute Qualifiers: Hypertension type: unspecified Qualified Code(s): I10 - Essential (primary) hypertension (5) Parathyroid adenoma: See above under hypercalcemia Status: Acute (6) Acute pancreatitis: Abdominal US reports that pancreas is normal. Dilation of common bile duct still present as previous studies. Continue clear liquid diet Continue morphine for ain control Continue Pepcid for GI prophylaxis Status: Acute Plan Full code Heparin for DVT prophylaxis Coding Level of Care Code Acute Director Of Supply Chain for Chg Fwd Diagnoses Hypercalcemia E83.52 Hypokalemia E87.6 Acute kidney injury N17.9 Hypertension I10 Hypertension type: unspecified Parathyroid adenoma D35.1 Acute pancreatitis K85.90 Documented by User: Kavon Early MD 07/25/21 09:45 Subjective Subjective: Awa Ren is a 61 year old female that is being managed for hypercalcemia likely secondary to parathyroid adenoma, hypokalemia, acute kidney injury, and pancreatitis. Patient explains that she slept pretty good. Her abdominal pain in minimally improved, but she continues to have significant vomitting. She denies any pain or difficulty with urination, but endorses polyuria. She has not had a bowel movement, explains that she feels the urge to go but is difficult with roomates and in the hospital. Denies fevers, endorses chills throughout the night. Patient seemed to have more difficulty answering qustions today and following along with questions/exam, continued to explain her fatigue. Denies any flank pain or muscle cramps. Agree with above. I interviewed the patient as well. Physical Exam Narrative: General: Thin, ill-appearing female lying in bed. Dry emesis present on bed, chin, and gown. HEENT: Normcephalic, atraumatic. Pupils equal and round. Oropharynx dry, non- erythematous. Cardiac: Regular rate and rhythm. S1 S2 present. No murmurs rubs or gallops. Peripheral pulse 2+. Respiratory: Air entry equal bilaterally. Clear to auscultation. No wheezes rales or rhonchi. GI: Soft,. Non-distened. Normoactive bowel sounds. Difficult to elicit tenderness but she will point more in her epigastric area. Extremities: No obvious abnormalities. No cyanosis, clubbing or edema. Neuro: No focal neurological deficits. Able to tell me her name and location including hospital and city. Seemed to have increased difficulty answering questions and following along. Data : 07/25/21 04:37 07/25/21 04:37 A&P Assessment and plan (1) Hypercalcemia: Calcium still significantly elevated but trending downward, now at 13.2 Patient has a known abnormal parathyroid hormone and parathyroid adenoma identified on scan. Currently being followed by ENT, with plans to perhaps get parathyroid adenoma resected in [place] At this point hydration will be continued as started in the emergency department. Continue calcitonin. She was given 1 dose of pamidronate Continue close monitoring of renal function Repeat calcium tomorrow Renal function improving Status: Acute (2) Hypokalemia: Continue supplement KCl IVFs Repeated BMP this morning, patient remains hypokalemic at 2.9. Has associated hypomagnesemia. Will supplement with 2 g of magnesium IV Status: Acute (3) Acute kidney injury: Continue close follow-up of renal dysfunction with laboratory Creatinine 1.4, down from 1.6 yesterday. Repeat UA still pending. Discussed with nurse to get this to ensure there is no infection Status: Acute (4) Hypertension: Status: Acute Qualifiers: Hypertension type: unspecified Qualified Code(s): I10 - Essential (primary) hypertension (5) Parathyroid adenoma: Status: Acute (6) Acute pancreatitis: Status: Acute Plan Confusion, nausea, word finding difficulty. This was attributed to her hypercalcemia in the past as well as this visit but I note that no CT head has been done. We will remedy that today. Full code Heparin for DVT prophylaxis Attestations Medical Necessity Statement*: Needs continued hospitalization for close follow-up of calcium, continued IV fluids secondary to intractable nausea and vomiting Coding Level of Care Code Acute Director Of Supply Chain for Chg Fwd Diagnoses Hypercalcemia E83.52 Hypokalemia E87.6 Acute kidney injury N17.9 Hypertension I10 Hypertension type: unspecified Parathyroid adenoma D35.1 Acute pancreatitis K85.90
[2021-07-25 07:36] VITALS: PULSE 109; RESP 12; TEMP 36.8; O2SAT 98
[2021-07-25] MEDS: sodium chloride 0.45% 1,000 ML 125 ML IV ×2 (08:35→17:57)
[2021-07-25] MEDS: magnesium sulfate premix 2 GM/50 ML PIGGYBACK IV (08:39)
--- NOTE | 2021-07-25 08:40 | CT_ITS ---
WS: [id number] CT HEAD TECHNIQUE: Noncontrast CT of the head obtained from the skullbase to the vertex. CLINICAL INFORMATION: confusion COMPARISON: None. DLP: 764.[address] scans at [facility] use at least one of these dose optimization techniques: automated e xposure control; mA and/or kV adjustment per patient size (includes targeted exams where dose is matc hed to clinical indication); or iterative reconstruction. FINDINGS: No evidence of intracranial hemorrhage or mass effect. Ventricular system and basal cisterns are dejesus nt. Mild to moderate small vessel changes with moderate parenchymal volume loss. No extra-axial flui d collections. No evidence of mass or mass effect. Normal tran-white differentiation. Paranasal sinuses and mastoid air cells are well aerated. .Normal visualized soft tissues. CT/CT head wo con* [id number] IMPRESSION: 1. No evidence of intracranial hemorrhage or mass effect. 2. [id number] small vessel changes with moderate parenchymal volume loss . 3. No acute intracranial findings.
[2021-07-25] MEDS: calcitonin,salmon 200 unit/mL SDV 2mL SUBCUT ×2 (08:42→20:49)
[2021-07-25 09:50] LABS: Urine Appearance Clear (CLEAR); Urine Color Straw (Yellow); pH Urine 8 (5-7)
[2021-07-25 09:51] LABS: Add Urine Microscopic? YES; Bilirubin Urine Neg (Negative); Blood Urine 2+ (Negative); Glucose Urine UA 1+ (Normal); Ketones Urine 1+ (Negative); Leukocyte Esterase Urine Negative (Negative); Nitrate Urine Negative (Negative); Protein Urine Neg (Negative); Specific Gravity, Urine 1.015 (1.005-1.030); Sulfosalicylic Acid Urine Positive (Negative); Urobilinogen Urine Norm (Negative)
[2021-07-25 10:03] LABS: Bacteria Urine 1+ /hpf; RBC Urine 0-4 /hpf (0-2); Squamous Epithelial Cell Urine 0-4 /hpf (0-5); WBC Urine 0-4 /hpf (0-5)
[2021-07-25 10:56] LABS: Vitamin B12 299 pg/mL (232-1245)
--- NOTE | 2021-07-25 11:27 | PC.CHAP ---
Pastoral Care Encounter/Spiritual Assessment Type of Contact [] Declined coupon manifest clerk visit [] Patient/Family/Request visit [] Outpatient visit [] Follow-up visit [] Physician referral [] Code/Alert [x] Routine visit [] Staff referral [] Actively dying [] Patient sleeping [] Family support [] [] Out of room [] Palliative care [] [x] Receiving care in room [] Pre-surgical visit [] Trauma [x] Long length of stay [] ICU visit [] Other: Relational/Emotional Strength [x] Patient feels connected with others/family/visitors/staff [x] Distress [] Loneliness/isolation [] Abandonment Spirituality of Patient [x] Person of Vickie [] Attends Scientologist of their Vickie [x] Believes in Prayer [] Reads Bible or Episcopal materials [] There are Spiritual issues to be addressed Refrigeration Service Technician Interventions [x] Prayer [x] Active listening [x] Non-anxious presence [x] Spiritual/emotional support [] Crisis/trauma care [x] Spiritual counseling [] Bereavement support [] Provided bereavement packet [] Provided Bible/devotional materials [] Provided toy/stuffed animal, coloring book to patient or family member [] Provided Communion [] Anointing/[place] [] Salvation [x] Completed spiritual assessment [] Other: Impact on Illness or Injury [] Angry [] Fearful [] Anxious [] Often cries [] Exhaustion [x] Unable to work [] Unable to attend zoroastrianism [] Unable to walk/stand [] Unable to read [] Unable to drive [] Unable to eat/drink [] Unable to sleep [] Unable to be with family [] Patient intubated [] Other: Summary parist may need suergery waiting on docotor negative feelings Time spent with patient 10 mins
[2021-07-25 12:00] VITALS: BP 171/63; PULSE 78; RESP 13; TEMP 37.1
[2021-07-25 16:00] VITALS: BP 171/63; PULSE 78; RESP 13; TEMP 37.1; O2SAT 98
[2021-07-25 18:15] LABS: Blood Urea Nitrogen 18 mg/dL (8-23); Calcium 13.4 mg/dL (8.5-10.5); Carbon Dioxide 17 mmol/L (22-29); Chloride 112 mmol/L (98-107); Glomerular Filtration Rate 41.5 mL/min (90-130); Glucose 108 mg/dL (65-115); Osmolality Calculated 302 mOsm/kg (285-295); Sodium 145 mmol/L (136-145)
[2021-07-25 18:23] LABS: Anion Gap 19.6 (5-19); Potassium 3.6 mmol/L (3.5-5.1)
[2021-07-25 19:41] VITALS: BP 171/104; PULSE 100; RESP 16; TEMP 36.9; O2SAT 97
--- NOTE | 2021-07-25 22:22 | PC.NURSE ---
1944 pt sitting up in bed. Green bile emesis noted on gown. Gown changed. s/o at bedside.
--- NOTE | 2021-07-25 22:52 | PC.NURSE ---
[id number] Pt continues to get up to BSC without calling for assistance. Bed alarms and this nurse finds pt up beside bed trying to get to BSC. Instruct pt again on safety concerns and call light use. She is very unsteady.
[2021-07-26] VITALS (8 sets, daily range): BP systolic 152–177; BP diastolic 89–116; PULSE 91–109; RESP 14–18; TEMP 36.8–37.4; O2SAT 94–97
[2021-07-26] MEDS: sodium chloride 0.45% 1,000 ML 125 ML IV ×3 (01:38→20:35)
[2021-07-26] MEDS: famotidine 20 mg/2 mL INJ IVP (03:04)
[2021-07-26] MEDS: heparin 5,000 unit/mL INJ 1 mL 5000 UNIT SUBCUT ×2 (03:04→16:40)
--- NOTE | 2021-07-26 04:21 | PC.NURSE ---
i reported high pulse 109 to nurse
[2021-07-26 05:06] LABS: Basophils % 0.2 %; Eosinophils % 0.1 %; Hemoglobin 11.3 g/dL (11.5-15.3); Lymphocytes % 10.3 %; Mean Corpuscular HGB Conc 32.3 g/dL (30.0-36.0); Mean Corpuscular Hemoglobin 29.2 pg (28.0-34.0); Mean Corpuscular Volume 90.4 fl (81-99); Mean Platelet Volume 11.2 fL (7.4-10.4); Monocytes # 0.6 10^3/uL (0.2-0.9); Monocytes % 6.5 %; Neutrophils # 7.77 10^3/uL (1.8-7.7); Neutrophils % 82.5 %; Nucleated Red Blood Cells % 0 %; Platelet Count 196 10^3/cmm (130-400); Red Blood Count 3.87 10^6/uL (4.1-5.3); Red Cell Distribution Width 13.6 % (12.1-15.1); White Blood Count 9.4 10^3/uL (4.0-10.0)
[2021-07-26 05:26] LABS: Alanine Aminotransferase 14 U/L (0-33); Albumin Level 3.4 g/dL (3.5-5.2); Alkaline Phosphatase 121 IU/L (35-105); Anion Gap 18.1 (5-19); Aspartate Amino Transferase 18 U/L (0-32); Blood Urea Nitrogen 18 mg/dL (8-23); Calcium 12.3 mg/dL (8.5-10.5); Carbon Dioxide 18 mmol/L (22-29); Chloride 110 mmol/L (98-107); Globulin 2.8 g/dL (1.3-4.6); Glomerular Filtration Rate 38.1 mL/min (90-130); Glucose 109 mg/dL (65-115); Lipase 44 U/L (13-60); Magnesium 1.5 mg/dL (1.7-2.3); Osmolality Calculated 298 mOsm/kg (285-295); Potassium 3.1 mmol/L (3.5-5.1); Sodium 143 mmol/L (136-145); Total Bilirubin 0.8 mg/dL (0.15-1.2); Total Protein 6.2 g/dL (6.6-8.7)
[2021-07-26] MEDS: levothyroxine 100 mcg Tablet PO (05:30)
--- NOTE | 2021-07-26 07:37 | P.PN_ITS ---
Documented by User: Mathew HOLLAND Mcleod STDNT 07/26/21 07:55 Subjective Subjective: Ms. Ren continues to complaon of fatigue and anorexia. Explains that her nausea and vomiting are similar to yesterday. She feels that her abdominal pain is improving, continues to point to epigastric area when asked to locate. Denies any flank pain or pain/difficulty with urination. Last bowel movement was last night, she explains it as small and hard. Medications: Reviewed: Yes Vitals/I&O/Wt Last Vital Signs Temp 98.2 F 07/26/21 04:00 Pulse 109 H 07/26/21 04:00 Resp 14 07/26/21 04:00 BP 154/89 07/26/21 05:13 Pulse Ox 95 07/26/21 04:00 07/25/21 07/26/21 07/26/21 22:59 06:59 14:59 Intake Total 1000 / 3790 960.417 / 4750.417 Output Total 620 / 620 880 / 1500 Balance 380 / 3170 80.417 / 3250.417 Weight last 48 hrs Weight 60.01 kg Physical Exam Narrative: General: Ill appearing female lying in bed asleep. HEENT: Normocephalic atraumatic. Neck supple, nontender, no lymphadenopathy, no thyromegaly. Cardiac: Regular rate and rhythm. S1 S2 present, no murmurs rubs or gallops. Peripheral pulse 2+. Respiratory: Clear to auscultation. No wheezes rales or rhonchi. Air entry equal bilaterally. GI: Soft, tender to palpation, nondistended, normoactive bowel sounds. No organomegaly. Neuro: No focal neurlogical deficits, tremor no longer present. Extremities: No obvious abnormalities. No cyanosis, clubbing, or edema. Psych: Mental status appears improved from yesterday, continues to some word finding difficulty, but improving. Data : 07/26/21 04:49 07/26/21 04:49 Other Labs: Neutrophils 7.77, trending downard. Calcium 12.3, trending downward. Magnesium 1.5 Alk phos: 121, trending downward. Lipase normal at 44 Total protein: 6.[address] Head: No intracranial hemorrhage or mass effect, mild-moderate vessel changes with parenchymal loss. A&P Assessment and plan (1) Hypercalcemia: Calcium continues to trend downward, remains elevated at 12.3 Patient has a known abnormal parathyroid hormone and parathyroid adenoma identified on scan. Currently being followed by ENT, with plans to perhaps get parathyroid adenoma resected in [place] Continue IV fluids Continue calcitonin. She was given 1 dose of pamidronate Continue close monitoring of renal function Repeat calcium tomorrow Renal function has declined slightly, Cr increased from 1.4 (07/25/21) to 1.5 (today) Status: Acute (2) Hypokalemia: Continue supplement KCl IVFs as needed Repeated BMP this morning, patient remains hypokalemic at 3.1. Has remains hypomagnesemic. Will supplement with 2 g of magnesium IV Status: Acute (3) Acute kidney injury: Continue close follow-up of renal dysfunction with laboratory Creatinine 1.5, up from 1.4 yesterday Repeat UA showed no evidence of infection. Status: Acute (4) Hypertension: Patient continues to have significant amount of vomitting At this point secondary to concern of pancreatitis, will discontinue her methadone, patient explains that she does not regularly use methadone. Continue morphine as needed pain Status: Acute Qualifiers: Hypertension type: unspecified Qualified Code(s): I10 - Essential ([facility]) hypertension (5) Parathyroid adenoma: See above under hypercalcemia Status: Acute (6) Acute pancreatitis: Abdominal US reports that pancreas is normal. Dilation of common bile duct still present as previous studies. Continue clear liquid diet Continue morphine for pain control Continue Pepcid for GI prophylaxis Status: Acute Plan Patient's confusion seems to be improved today, word finding difficulty still present. CT Head was normal. Full code Heparin for DVT prophylaxis Coding Level of Care Code Acute General Supervisor for Chg Fwd Diagnoses Hypercalcemia E83.52 Hypokalemia E87.6 Acute kidney injury N17.9 Hypertension I10 Hypertension type: unspecified Parathyroid adenoma D35.1 Acute pancreatitis K85.90 Documented by User: Kavon Early MD 07/26/21 08:33 Subjective Subjective: Ms. Ren continues to complaon of fatigue and anorexia. Explains that her nausea and vomiting are similar to yesterday. She feels that her abdominal pain is improving, continues to point to epigastric area when asked to locate. Denies any flank pain or pain/difficulty with urination. Last bowel movement was last night, she explains it as small and hard. Agree with above. Overall she relates she is doing better with less pain. She still has some nausea but is willing to try to take p.o. Physical Exam Narrative: General: Ill appearing female lying in bed asleep. HEENT: Normocephalic atraumatic. Neck supple, nontender, no lymphadenopathy, no thyromegaly. Cardiac: Regular rate and rhythm. S1 S2 present, no murmurs rubs or gallops. Peripheral pulse 2+. Respiratory: Clear to auscultation. No wheezes rales or rhonchi. Air entry equal bilaterally. GI: Soft, tender to palpation, nondistended, normoactive bowel sounds. No org anomegaly. Neuro: No focal neurlogical deficits, tremor no longer present. Extremities: No obvious abnormalities. No cyanosis, clubbing, or edema. Psych: Mental status appears improved from yesterday, continues to some word finding difficulty, but improving. Agree with above. I examined the patient as well. Data : 07/26/21 04:49 07/26/21 04:49 A&P Assessment and plan (1) Hypercalcemia: Calcium continues to trend downward, remains elevated at 12.3 Patient has a known abnormal parathyroid hormone and parathyroid adenoma identified on scan. Currently being followed by ENT, with plans to perhaps get parathyroid adenoma resected in [place] Reduce IV fluids Continue calcitonin. She was given 1 dose of pamidronate Continue close monitoring of renal function Repeat calcium tomorrow Renal function has improved since admission Status: Acute (2) Hypokalemia: Continue supplement KCl IVFs as needed. 80 mEq IV will be given IV Magnesium still low. Give 2 g IV now. Status: Acute (3) Acute kidney injury: Overall renal function improved from admission. Repeat UA showed no evidence of infection. Status: Acute (4) Hypertension: Blood pressure high but stable Status: Acute Qualifiers: Hypertension type: unspecified Qualified Code(s): I10 - Essential (primary) hypertension (5) Parathyroid adenoma: Status: Acute (6) Acute pancreatitis: Abdominal US reports that pancreas is normal. Dilation of common bile duct still present as previous studies. This will need outpatient follow-up with GI in [place]. Continue clear liquid diet. If she tolerates a diet today we will advance Continue morphine for pain control. She has not needed this currently. Continue Pepcid for GI prophylaxis Status: Acute Plan Patient's confusion seems to be improved today, word finding difficulty still present. CT Head was normal. History of chronic pain. She alerted me that she was only taking the methadone as needed and not on a regular basis so it was discontinued. Full code Heparin for DVT prophylaxis Attestations Medical Necessity Statement*: Needs continued hospitalization for correction of electrolyte abnormalities, advancing diet in this patient with acute pancreatitis and markedly elevated calcium on admission. Coding Level of Care Code Acute General Supervisor for Chg Fwd Diagnoses Hypercalcemia E83.52 Hypokalemia E87.6 Acute kidney injury N17.9 Hypertension I10 Hypertension type: unspecified Parathyroid adenoma D35.1 Acute pancreatitis K85.90
[2021-07-26] MEDS: lidocaine 1% 5 ML in potassium chloride premix 100 ML 25 ML IV ×2 (09:23→15:55)
[2021-07-26] MEDS: pantoprazole 40 mg SDV IVP ×2 (09:30→20:35)
[2021-07-26] MEDS: calcitonin,salmon 200 unit/mL SDV 2mL SUBCUT ×2 (11:01→21:27)
[2021-07-26] MEDS: magnesium sulfate premix 2 GM/50 ML PIGGYBACK IV (14:34)
[2021-07-27] VITALS (7 sets, daily range): BP systolic 157–177; BP diastolic 79–96; PULSE 76–94; RESP 16–17; TEMP 36.7–37.6; O2SAT 95–96
[2021-07-27] MEDS: heparin 5,000 unit/mL INJ 1 mL 5000 UNIT SUBCUT ×2 (04:00→14:41)
[2021-07-27] MEDS: levothyroxine 100 mcg Tablet PO (05:55)
[2021-07-27 05:58] LABS: Basophils % 0.5 %; Eosinophils % 0.5 %; Hematocrit 33.1 % (37.0-47.0); Hemoglobin 10.9 g/dL (11.5-15.3); Lymphocytes # 0.9 10^3/uL (0.8-4.8); Lymphocytes % 13.7 %; Mean Corpuscular HGB Conc 32.9 g/dL (30.0-36.0); Mean Corpuscular Hemoglobin 29.7 pg (28.0-34.0); Mean Corpuscular Volume 90.2 fl (81-99); Mean Platelet Volume 11.6 fL (7.4-10.4); Monocytes # 0.5 10^3/uL (0.2-0.9); Monocytes % 7.2 %; Neutrophils # 5.11 10^3/uL (1.8-7.7); Nucleated Red Blood Cells % 0 %; Platelet Count 164 10^3/cmm (130-400); Red Blood Count 3.67 10^6/uL (4.1-5.3); Red Cell Distribution Width 13.6 % (12.1-15.1); White Blood Count 6.6 10^3/uL (4.0-10.0)
[2021-07-27] MEDS: sodium chloride 0.45% 1,000 ML 125 ML IV (05:59)
[2021-07-27 07:22] LABS: Alanine Aminotransferase 12 U/L (0-33); Albumin Level 3.4 g/dL (3.5-5.2); Alkaline Phosphatase 118 IU/L (35-105); Anion Gap 17.3 (5-19); Aspartate Amino Transferase 17 U/L (0-32); Blood Urea Nitrogen 20 mg/dL (8-23); Calcium 10.6 mg/dL (8.5-10.5); Carbon Dioxide 18 mmol/L (22-29); Chloride 108 mmol/L (98-107); Creatinine Clr Calc Pharmacy 44.1067; Globulin 2.6 g/dL (1.3-4.6); Glomerular Filtration Rate 45.5 mL/min (90-130); Glucose 98 mg/dL (65-115); Osmolality Calculated 293 mOsm/kg (285-295); Potassium 3.3 mmol/L (3.5-5.1); Sodium 140 mmol/L (136-145); Total Bilirubin 0.8 mg/dL (0.15-1.2)
[2021-07-27] MEDS: calcitonin,salmon 200 unit/mL SDV 2mL SUBCUT (09:10)
[2021-07-27] MEDS: pantoprazole 40 mg SDV IVP ×2 (09:15→20:03)
[2021-07-27] MEDS: sodium chloride 0.9% 1,000 ML 125 ML IV ×2 (13:56→20:03)
--- NOTE | 2021-07-27 14:14 | PM.PN ---
Subjective Subjective: Patient was seen and examined this morning, she continues to complain of fatigue , weakness, nausea. Serum calcium has trended down to 10.6, kidney function is improving serum creatinine is 1.2. Urine output is picking up. Medications: Reviewed: Yes Medication Review Details: Generic Name Dose Route Start Last Admin Trade Name Freq PRN Reason Stop Dose Admin Heparin Sodium (Po rcine) 5,000 unit 07/24/21 15:00 07/27/21 14:41 Heparin 5,000 Un it/Ml Inj 1 Ml SUBCUT 5,000 unit Q12H LAURA Administration Sodium Chloride 1,000 mls @ 125 m ls/hr 07/27/21 12:15 07/27/21 13:56 Sodium Chloride 0.9% IV 125 mls/hr .Q8H LAURA Administration Levothyroxine Sodi um 100 mcg 07/25/21 06:00 07/27/21 05:55 Levothyroxine 10 0 Mcg Tablet PO 100 mcg QAM LAURA Administration Ondansetron HCl 4 mg 07/24/21 09:34 07/25/21 20:49 Ondansetron 2 Mg /Ml Sdv 2 Ml IVP 4 mg Q6H PRN Administration NAUSEA AND VOMITI NG Pantoprazole Sodiu m 40 mg 07/26/21 08:45 07/27/21 09:15 Pantoprazole 40 Mg Sdv IVP 40 mg Q12H LAURA Administration Vitals/I&O/Wt Last Vital Signs Temp 98.7 F 07/27/21 11:24 Pulse 90 07/27/21 11:24 Resp 16 07/27/21 11:24 BP 162/86 07/27/21 11:24 Pulse Ox 96 07/27/21 11:24 07/26/21 07/27/21 07/27/21 22:59 06:59 14:59 Intake Total 1455 / 2560 1300 / 3860 120 / 120 Balance 1455 / 2560 1300 / 3860 120 / 120 Weight last 48 hrs Weight 58.196 kg Physical Exam Const: COMMON NORMALS: patient oriented x3 HENMT: COMMON NORMALS: normocephalic and atraumatic HEAD & SCALP: normocephalic and atraumatic Resp: COMMON NORMALS: normal respiratory effort, No retractions, No use of accessory muscles and clear to auscultation bilaterally EFFORT & INSPECTION: Yes symmetric chest movement AUSCULTATION: clear to auscultation bilaterally Cardio: COMMON NORMALS: regular rate, regular rhythm, S1 normal heart sound present, S2 normal heart sound present, No gallops present (Cardio), No murmurs present (Cardio), No rub (Cardio) and Peripheral pulses 2+ throughout RATE: regular rate RHYTHM: regular rhythm HEART SOUNDS: S1 normal heart sound present and S2 normal heart sound present PERIPHERAL PULSES: Peripheral pulses 2+ throughout GI: COMMON NORMALS: Normal to inspection, nondistended, normoactive bowel sounds present, Soft to palpation, non-tender, No hepatosplenomegaly present and no masses AUSCULTATION: Yes normoactive bowel sounds PALPATION: Yes Soft to palpation and Yes No hepatosplenomegaly present RECTAL EXAM: deferred Extremity: COMMON NORMALS: no clubbing, cyanosis or edema and no pedal edema Neuro: COMMON NORMALS: patient oriented x3 Data : 07/27/21 04:55 07/27/21 04:55 A&P Assessment and plan (1) Hypercalcemia: Patient has history of parathyroid adenoma, Intact PTH is high Patient has received calcitonin, status post 1 dose of zoledronic acid today. Continue normal saline at 125 cc an hour Strict intake output charting Continue to monitor BMP Status: Acute (2) Hypokalemia: Monitor and replace serum potassium Status: Acute (3) Acute kidney injury: Overall renal function improved from admission. Repeat UA showed no evidence of infection. Status: Acute (4) Hypertension: Blood pressure high but stable Status: Acute Qualifiers: Hypertension type: unspecified Qualified Code(s): I10 - Essential (primary) hypertension (5) Parathyroid adenoma: See above under hypercalcemia Status: Acute (6) Acute pancreatitis: Abdominal US reports that pancreas is normal. Dilation of common bile duct still present as previous studies. This will need outpatient follow-up with GI in [place]. Continue clear liquid diet. If she tolerates a diet today we will advance Continue morphine for pain control. She has not needed this currently. Continue Pepcid for GI prophylaxis Status: Acute Plan Patient's confusion seems to be improved today, word finding difficulty still present. CT Head was normal. History of chronic pain. She alerted me that she was only taking the methadone as needed and not on a regular basis so it was discontinued. Full code Heparin for DVT prophylaxis Attestations Medical Necessity Statement*: Patient is to be in hospital for management of symptomatic hypercalcemia. Time Spent in Patient Care: Greater than 35 minutes (>than 50% of time spent in counselling and/or direct pt care on unit). Patient needs to be in hospital for management of symptomatic hypercalcemia. Coding Level of Care Code Acute Tapper Bit for Chg Fwd Exam Comprehensive Diagnoses Hypercalcemia E83.52 Hypokalemia E87.6 Acute kidney injury N17.9 Hypertension I10 Hypertension type: unspecified Parathyroid adenoma D35.1 Acute pancreatitis K85.90
[2021-07-27] MEDS: ondansetron 2 mg/ML SDV 2 mL 4 MG IVP (20:03)
[2021-07-28] MEDS: heparin 5,000 unit/mL INJ 1 mL 5000 UNIT SUBCUT ×2 (03:56→16:55)
[2021-07-28] MEDS: sodium chloride 0.9% 1,000 ML 125 ML IV ×2 (03:56→13:33)
[2021-07-28 04:00] VITALS: BP 167/88; PULSE 83; RESP 17; TEMP 37.7; O2SAT 95
[2021-07-28] MEDS: levothyroxine 100 mcg Tablet PO (05:46)
[2021-07-28 05:53] VITALS: PULSE 120
[2021-07-28 07:32] VITALS: BP 162/76; PULSE 86; RESP 18; TEMP 37; O2SAT 94
[2021-07-28] MEDS: pantoprazole 40 mg SDV IVP (08:11)
[2021-07-28] MEDS: ondansetron 2 mg/ML SDV 2 mL 4 MG IVP ×2 (08:13→13:38)
[2021-07-28 11:43] LABS: Anion Gap 16.4 (5-19); Blood Urea Nitrogen 18 mg/dL (8-23); Carbon Dioxide 19 mmol/L (22-29); Chloride 106 mmol/L (98-107); Glomerular Filtration Rate 50.3 mL/min (90-130); Glucose 91 mg/dL (65-115); Osmolality Calculated 289 mOsm/kg (285-295); Sodium 139 mmol/L (136-145)
[2021-07-28 12:00] VITALS: BP 154/72; PULSE 79; RESP 18; TEMP 36.7; O2SAT 97
[2021-07-28 12:22] LABS: Potassium 2.4 mmol/L (3.5-5.1)
[2021-07-28] MEDS: lidocaine 1% 5 ML in potassium chloride premix 100 ML 25 ML IV (13:32)
--- NOTE | 2021-07-28 14:19 | PM.DCS ---
Discharge Providers Date of Admission: 07/24/21 09:34 Date of Discharge: July 28, 2021 Attending Provider at Admission: Kavon Early MD Attending Provider at Discharge: Buck Rehman MD Primary Care Provider: Merlin Slade MD Diagnoses at Discharge Discharge Diagnosis (1) Hypercalcemia: Status: Acute (2) Hypokalemia: Status: Acute (3) Acute kidney injury: Status: Acute (4) Hypertension: Status: Acute Qualifiers: Hypertension type: unspecified Qualified Code(s): I10 - Essential (primary) hypertension (5) Parathyroid adenoma: Status: Acute (6) Acute pancreatitis: Status: Acute Reason for Visit Reason for Visit: N/V, Dizzy Hospital Course Hospital Course HPI : Dr. Early Awa Ren is a 61 year old female who presents today with a 6-week history of worsening nausea vomiting and diarrhea that has gotten progressively worse over the last 2 to 3 days.? Patient explained that she has a known parathyroid nodule and was seen in the ED previously for similar symptoms 6 weeks ago.? She explains she was at supposed to have a scan today of her nodule but was unable to go because of her current visit to the ED.? She explains that her emesis has been clear, denies any hematemesis.? She has been unable to eat and drink for the last 2 to 3 weeks due to her nausea and vomiting.? She explains that her abdominal pain has mostly been diffuse, but is more recently located to the periumbilical area.? Her explains that she does seem to be more foggy lately, but no obvious mental status changes.? She denies any polyuria or polydipsia.? Denies any fevers or chills.? Denies any chest pain.? Patient received Tylenol, Zofran, potassium, and fluids in the ED.? She relates that her last hospital presentation was similar to this, but she was doing much better by discharge.? No blood in her stool, black or tarry stools.? No blood in emesis. Hospital course: During the hospital stay she was admitted for the management of symptomatic hypercalcemia secondary to Known abnormal parathyroid hormone and parathyroid adenoma, she was kept on IV hydration, she was given calcitonin and one dose of pamidronate, serum calcium was monitored, she responded well to above Therapy, serum calcium at the time of discharge was 8, at the time of discharge she was AO x3 , With good oral intake. She was also managed for renal CHANDA likely secondary to intravascular volume depletion secondary to hypercalcemia, SCR at the time of discharge was 1.1 , she has been asked to keep herself well-hydrated. For her parathyroid adenoma, Currently seeing ENT, with plans to perhaps get parathyroid adenoma resected in [place]. We will continue on her home cinacalcet. Also managed for her hypothyroidism she was continued on levothyroxine. Other electrolyte correction was undertaken also during the hospital stay. Patient responded well to above medical management and is being discharged in stable condition to home. She will continue to follow with her primary care physician as an outpatient. Physical Exam Const: COMMON NORMALS: patient oriented x3 HENMT: COMMON NORMALS: normocephalic and atraumatic HEAD & SCALP: normocephalic and atraumatic Resp: COMMON NORMALS: normal respiratory effort, No retractions, No use of accessory muscles and clear to auscultation bilaterally EFFORT & INSPECTION: Yes symmetric chest movement AUSCULTATION: clear to auscultation bilaterally Cardio: COMMON NORMALS: regular rate, regular rhythm, S1 normal heart sound present, S2 normal heart sound present, No gallops present (Cardio), No murmurs present (Cardio), No rub (Cardio) and Peripheral pulses 2+ throughout RATE: regular rate RHYTHM: regular rhythm HEART SOUNDS: S1 normal heart sound present and S2 normal heart sound present PERIPHERAL PULSES: Peripheral pulses 2+ throughout GI: COMMON NORMALS: Normal to inspection, nondistended, normoactive bowel sounds present, Soft to palpation, non-tender, No hepatosplenomegaly present and no masses AUSCULTATION: Yes normoactive bowel sounds PALPATION: Yes Soft to palpation and Yes No hepatosplenomegaly present RECTAL EXAM: deferred Extremity: COMMON NORMALS: no clubbing, cyanosis or edema and no pedal edema Neuro: COMMON NORMALS: patient oriented x3 Discharge Data Studies Completed and Pending Completed Studies During Hospitalization Category Date Time Status CT head wo con* [id number] Routine Cat Scan 07/25/21 08:40 Completed XR abdomen 1V* [id number] Urgent Exams 07/24/21 06:50 Completed US abdomen limited [id number] Routine Ultrasound 07/24/21 14:35 Completed Pending at discharge Category Date Time Status BMP [Basic Metabolic Panel] AM LABS Lab 07/29/21 04:00 Ordered BMP [Basic Metabolic Panel] AM LABS Lab 07/30/21 04:00 Ordered BMP [Basic Metabolic Panel] AM LABS Lab 07/31/21 04:00 Ordered CBC Auto Diff [Complete Blood Count w/Auto] AM LABS Lab 07/29/21 04:00 Ordered CBC Auto Diff [Complete Blood Count w/Auto] AM LABS Lab 07/30/21 04:00 Ordered CBC Auto Diff [Complete Blood Count w/Auto] AM LABS Lab 07/31/21 04:00 Ordered Radiology Impressions Abdomen X-Ray 07/24/21 06:50 IMPRESSION: Mild small bowel dilatation in the pelvis, along with prominent stool. Abdomen Ultrasound 07/24/21 14:35 IMPRESSION: 1. Mild hepatomegaly with diffuse fatty infiltration liver. 2. Mild fluid distention of the gallbladder. No gallbladder wall thickening or pericholecystic fluid. 3. Marked dilatation of the common bile duct measuring 15 mm. This is unchanged since the recent MRCP June 02, [address] June 02, 2021. 4. No hydronephrosis in RIGHT kidney. 5. Pancreas appears normal today. No peripancreatic fluid collections. Head CT 07/25/21 08:40 IMPRESSION: 1. No evidence of intracranial hemorrhage or mass effect. 2. Gkme-fl-lncxcfef small vessel changes with moderate parenchymal volume loss. 3. No acute intracranial findings. Laboratory Results WBC 6.6 10^3/uL (4.0-10.0) 07/27/21 04:55 RBC 3.67 10^6/uL (4.1-5.3) L 07/27/21 04:55 Hgb 10.9 g/dL (11.5-15.3) L 07/27/21 04:55 Hct 33.1 % (37.0-47.0) L 07/27/21 04:55 MCV 90.2 fl (81-99) 07/27/21 04:55 MCH 29.7 pg (28.0-34.0) 07/27/21 04:55 MCHC 32.9 g/dL (30.0-36.0) 07/27/21 04:55 RDW 13.6 % (12.1-15.1) 07/27/21 04:55 Plt Count 164 10^3/cmm (130-400) 07/27/21 04:55 MPV 11.6 fL (7.4-10.4) H 07/27/21 04:55 Neut % (Auto) 77.0 % 07/27/21 04:55 Lymph % (Auto) 13.7 % 07/27/21 04:55 Posey % (Auto) 7.2 % 07/27/21 04:55 Eos % (Auto) 0.5 % 07/27/21 04:55 Baso % (Auto) 0.5 % 07/27/21 04:55 Neut # (Auto) 5.11 10^3/uL (1.8-7.7) 07/27/21 04:55 Lymph # (Auto) 0.9 10^3/uL (0.8-4.8) 07/27/21 04:55 Posey # (Auto) 0.5 10^3/uL (0.2-0.9) 07/27/21 04:55 Eos # (Auto) 0.0 10^3/uL (0.0-0.8) 07/27/21 04:55 Baso # (Auto) 0.0 10^3/uL (0.0-0.1) 07/27/21 04:55 Nucleated RBC % (auto) 0 % 07/27/21 04:55 Nucleated RBCs # 0.0 /100WBC 07/27/21 04:55 Sodium 139 mmol/L (136-145) 07/28/21 11:15 Potassium 2.4 mmol/L (3.5-5.1) L* 07/28/21 11:15 Chloride 106 mmol/L (98-107) 07/28/21 11:15 Carbon Dioxide 19 mmol/L (22-29) L 07/28/21 11:15 Anion Gap 16.4 (5-19) 07/28/21 11:15 BUN 18 mg/dL (8-23) 07/28/21 11:15 Creatinine 1.1 mg/dL (0.5-0.9) H 07/28/21 11:15 GFR Calculation 50.3 mL/min (90-130) L 07/28/21 11:15 Glucose 91 mg/dL (65-115) 07/28/21 11:15 Calculated Osmolality 289 mOsm/kg (285-295) 07/28/21 11:15 Calcium 8.0 mg/dL (8.5-10.5) L 07/28/21 11:15 Magnesium 1.5 mg/dL (1.7-2.3) L 07/26/21 04:49 Total Bilirubin 0.8 mg/dL (0.15-1.2) 07/27/21 04:55 AST 17 U/L (0-32) 07/27/21 04:55 ALT 12 U/L (0-33) 07/27/21 04:55 Alkaline Phosphatase 118 IU/L (35-105) H 07/27/21 04:55 Total Protein 6.0 g/dL (6.6-8.7) L 07/27/21 04:55 Albumin 3.4 g/dL (3.5-5.2) L 07/27/21 04:55 Globulin 2.6 g/dL (1.3-4.6) 07/27/21 04:55 Lipase 44 U/L (13-60) 07/26/21 04:49 Vitamin B12 299 pg/mL (232-1245) 07/25/21 04:37 TSH 1.06 uIU/mL (0.27-4.20) 07/24/21 07:43 Free T4 1.87 ng/dL (0.82-1.77) H 07/24/21 07:43 Free T3 2.0 PG/ML (2.0-4.4) 07/24/21 07:43 PTH Intact 258.1 pg/mL (15-65) H 07/24/21 12:06 Calcium (PTH Intact) 16.2 mg/dL (8.5-10.5) H* 07/24/21 12:06 Urine Color Straw (Yellow) 07/25/21 09:10 Urine Appearance Clear (CLEAR) 07/25/21 09:10 Urine pH 8 (5-7) H 07/25/21 09:10 Ur Specific [place] 1.015 (1.005-1.030) 07/25/21 09:10 Urine Protein Neg (Negative) 07/25/21 09:10 Urine Glucose (UA) 1+ (Normal) H 07/25/21 09:10 Urine Ketones 1+ (Negative) H 07/25/21 09:10 Urine Blood 2+ (Negative) H 07/25/21 09:10 Urine Nitrate Negative (Negative) 07/25/21 09:10 Urine Bilirubin Neg (Negative) 07/25/21 09:10 Prot Sulfosalicylic Acd Positive (Negative) 07/25/21 09:10 Urine Urobilinogen Norm mg/dL (Negative) 07/25/21 09:10 Ur Leukocyte Esterase Negative (Negative) 07/25/21 09:10 Urine RBC 0-4 /hpf (0-2) H 07/25/21 09:10 Urine WBC 0-4 /hpf (0-5) H 07/25/21 09:10 Ur Squamous Epith Cells 0-4 /hpf (0-5) H 07/25/21 09:10 Amorphous Sediment Not Reportable 07/25/21 09:10 Urine Bacteria 1+ /hpf (NONE) H 07/25/21 09:10 SARS-CoV-2 Ag (Rapid) Negative (Negative) 07/24/21 07:17 Vitals Last Vital Signs Temp 98.1 F 07/28/21 12:00 Pulse 79 07/28/21 12:00 Resp 18 07/28/21 12:00 BP 154/72 07/28/21 12:00 Pulse Ox 97 07/28/21 12:00 Discharge Plan Discharge Patient Disposition: Home Condition: Stable Prescriptions: New ondansetron HCl [Zofran] 4 mg tablet 4 mg PO Q6H PRN (Reason: nausea and vomiting) Qty: 20 0RF Continued methadone 5 mg tablet 5 mg PO BID 0RF magnesium oxide 400 mg (241.3 mg magnesium) tablet 400 mg PO DAILY Qty: 30 0RF levothyroxine 100 mcg tablet 100 mcg PO QAM 0RF cinacalcet 30 mg tablet 30 mg PO DAILY 0RF Changed potassium chloride 10 mEq capsule, extended release 20 meq PO DAILY 30 Days Qty: 30 1RF Discharge Orders: Discharge Order (Routine); Ordered 07/28/21 Ordered By: Buck Rehman Referrals: Merlin Slade MD [Primary Care Provider] - 1 month Discharge Diet: Regular Discharge Activity: Resume usual activity Patient Instructions: Opioid Safety Discharge Attestations Time Spent in Discharge Care*: greater than 30 min Specific Discharge Activities: educating patient, educating and/or supporting family/caregiver, discussing with pcp/other providers, discussing with family independence case manager/social workers/dc planners, documenting/other paperwork and evaluating patient/reviewing data Status at Discharge: Cognitive status at discharge: cognitively intact, Behavioral status at discharge: cooperative, Quality Metrics Clinical Quality Measures [ No reported AMI, CVA or VTE this stay] Coding Level of Care Code Acute Chg FW DC note Exam Detailed Diagnoses Hypercalcemia E83.52 Hypokalemia E87.6 Acute kidney injury N17.9 Hypertension I10 Hypertension type: unspecified Parathyroid adenoma D35.1 Acute pancreatitis K85.90
[2021-07-28] MEDS: potassium chloride ER 20 mEq Tablet 40 MEQ PO (15:03)
--- NOTE | 2021-07-28 15:37 | PC.NURSE ---
Patient vitals stable during shift. Patient K is 2.4, K rider running and oral K given. Fluids running at 125. Medications sent to local pharmacy. IV discontinued. Belongings accounted for. Patient discharging after IV potassium given.
[2021-07-28 16:00] VITALS: BP 148/73; PULSE 67; RESP 18; TEMP 36.8; O2SAT 97
[2021-07-28 17:46] VITALS: BP 154/72; PULSE 79; RESP 18; TEMP 36.7; O2SAT 97
== END 2021-07-28 18:03 | disposition home or self-care (01) | DRG 644 ==
LOC: ER 09:41 → MEDSURG 12:56
PROVIDERS: Admitting Provider Internal Medicine; Emergency Provider Family Medicine; PCP Family Medicine; Visit Provider Internal Medicine
DX: D35.1 Benign neoplasm of parathyroid gland (principal); N17.9 Acute kidney failure, unspecified; E83.52 Hypercalcemia; I10 Essential (primary) hypertension; K21.9 Gastro-esophageal reflux disease without esophagitis; E87.6 Hypokalemia; E86.1 Hypovolemia; K83.8 Other specified diseases of biliary tract; E03.9 Hypothyroidism, unspecified; Z79.891 Long term (current) use of opiate analgesic
CPT/HCPCS: 36415; 70450; 74018; 76705; 80048; 80053; 81001; 82310; 82607; 83690; 83735; 83970; 84439; 84443; 84481; 85025; 87426; 93005; 96365; 96367; 96372; 96375; 99285; C9113; J0360; J0630; J1644; J2405; J2430; J3475; J3480; J3489; J3490; J7030

== ENCOUNTER 2022-03-20 12:27 | Outpatient (CLI) | payer OTHER, SELFPAY ==
[2022-03-20 14:08] LABS: Blood Urea Nitrogen 25 mg/dL (8-23); Calcium 10.1 mg/dL (8.5-10.5); Carbon Dioxide 24 mmol/L (22-29); Chloride 105 mmol/L (98-107); Glomerular Filtration Rate 56.2 mL/min (90-130); Glucose 95 mg/dL (65-115); Osmolality Calculated 294 mOsm/kg (285-295); Sodium 140 mmol/L (136-145)
[2022-03-20 14:10] LABS: Anion Gap 16.2 (5-19); Potassium 5.2 mmol/L (3.5-5.1)
== END 2022-03-20 12:28 | disposition home or self-care (01) ==
LOC: LAB 12:29
PROVIDERS: PCP Family Medicine; Visit Provider Internal Medicine Cardiovascular Disease
DX: I10 Essential (primary) hypertension (principal)
CPT/HCPCS: 36415; 80048; 83735

== ENCOUNTER 2022-04-22 08:01 | Outpatient (CLI) | payer OTHER, SELFPAY ==
--- NOTE | 2022-04-22 08:00 | USCV_ITS ---
Awa Ren Age: 62 Gender: F : 1960 Exam Date: 04/22/2022 08:25 Ordering Phys: Pamella Chadwick MD ([email or web address]) Technologist: Exam Location: [facility] [place] Indication: Murmur BP: 160 / 80 HR: 70 Rhythm: Sinus Technical Quality: Adequate MEASUREMENTS (Male / Female) Normal Values 2D ECHO LV Diastolic Diameter PLAX 3.7 cm 4.2 - 5.9 / 3.9 - 5.3 cm LV Systolic Diameter PLAX 2.3 cm IVS Diastolic Thickness 1.1 cm 0.6 - 1.0 / 0.6 - 0.9 cm IVS Systolic Thickness 1.6 cm LVPW Diastolic Thickness 1.4 cm 0.6 - 1.0 / 0.6 - 0.9 cm LVPW Systolic Thickness 1.4 cm LVOT Diameter 2.1 cm LV Ejection Fraction 2D Teich 69.4 % LV Ejection Fraction MOD 2C 58.4 % LV Ejection Fraction 2C AL 58.8 % LA Diameter 3.1 cm M-MODE Aortic Annulus Diameter 3.2 cm LA Ao Ratio MM 1.1 MV E Point Septal Separation 1.7 cm DOPPLER AV Peak Velocity 210.0 cm/s LVOT Peak Velocity 117.0 cm/s AV Area Cont Eq vti 1.9 cm squared AV Area Cont Eq pk 1.9 cm squared MV Area PHT 5.0 cm squared Mitral E to A Ratio 0.9 MV E' Velocity 66.5 cm/s Mitral E to MV E' Ratio 15.6 Mitral E to LV E' Lateral Ratio 14.8 Mitral E to LV E' Septal Ratio 16.4 TR Peak Velocity 258.0 cm/s TR Peak Gradient 26.6 mmHg TV Peak E Velocity 119.0 cm/s Right Atrial Pressure 3.0 mmHg Pulmonary Artery Systolic Pressu 29.6 mmHg RV Acceleration Time 0.2 s FINDINGS Left Ventricle Normal left ventricular size, systolic function and wall thickness, with no regional wall motion abnormalities. Left ventricular ejection fraction is estimated at 60 %. Normal diastolic function. Right Ventricle Normal right ventricular size and systolic function. Right ventricular systolic pressure 36 mmHg. Right Atrium Normal right atrial size. Left Atrium Mildly increased left atrial size. Mitral Valve Mild mitral annular calcification. Structurally normal mitral valve. No mitral valve stenosis. Mild mitral valve regurgitation. Aortic Valve Aortic valve not well visualized. Mild aortic valve stenosis, peak velocity 2.1 m/sec, peak gradient 18 mm Hg, mean gradient 8 mmHg, MARLEEN 2 cm squared. No aortic valve regurgitation. Tricuspid Valve Structurally normal tricuspid valve. No tricuspid valve stenosis. Mild tricuspid valve regurgitation. Pulmonic Valve Pulmonic valve not well visualized. Pericardium No pericardial effusion. Aorta Aorta not well visualized. IVC Inferior vena cava not visualized. CONCLUSIONS 1. Normal left ventricular size, systolic function and wall thickness, with no regional wall motion abnormalities. Left ventricular ejection fraction is estimated at 60 %. Normal diastolic function. 2. Upper normal pulmonary artery pressure estimated at 36 mm Hg. 3. Mild aortic valve stenosis, peak velocity 2.1 m/sec, peak gradient 18 mm Hg, mean gradient 8 mmHg, MARLEEN 2 cm squared. 4. No prior similar studies to compare. Pamella Chadwick MD (Electronically Signed) Final Date: 27 April 2022 18:57 S
== END 2022-04-22 08:02 | disposition home or self-care (01) ==
PROVIDERS: PCP Family Medicine; Visit Provider Internal Medicine Cardiovascular Disease
DX: R06.02 Shortness of breath (principal); R01.1 Cardiac murmur, unspecified; I35.0 Nonrheumatic aortic (valve) stenosis
CPT/HCPCS: 93306

== ENCOUNTER 2025-04-02 12:55 | Emergency (ER) | payer MEDICARE, OTHER, SELFPAY ==
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
--- OUTSIDE RECORDS SUMMARY | 2025-04-02 12:58 | XMS_ITS | Clinical Summary ---
Author Organization [facility] Address [address] [place] [address] Phone Care Team Providers Care Sheet Metal Superintendent Name Role Phone FredFatemeh cope Primary Care Provider Allergies Active Allergy Reactions Criticality Noted Date Comments Pregabalin Swelling Low 11/14/2021 Prochlorperazine Delirium Medium 08/27/2021 Sulfa (Sulfonamide Antibiotics) Unknown 10/24 Tramadol Unknown 11/14/2021 Medications loratadine (CLARITIN) 10 mg tablet Take 10 mg by mouth daily. Active potassium chloride (KLOR-CON M10) 10 mEq Extended Release tablet Take 1 Tablet (10 mEq) by mouth daily. 90 Tablet 4 01/19/20 24 Active lisinopriL (PRINIVIL) 20 mg tabletIndications: Essential hypertension TAKE ONE TABLET BY MOUTH 2 TIMES DAILY. 180 Tablet 3 04/22/20 24 Active spironolactone (ALDACTONE) 25 mg tablet Take 1 Tablet (25 mg) by mouth every other day. 50 Tablet 3 05/19/20 24 Active atorvastatin (LIPITOR) 40 mg tabletIndications: Mixed hyperlipidemia TAKE ONE TABLET BY MOUTH DAILY. 100 Tablet 3 07/26/19 25 Active methadone (DOLOPHINE) 5 mg TabletIndications: Lumbosacral spondylosis without myelopathy,Chronic midline low back pain with bilateral sciatica TAKE 1 TABLET BY MOUTH EVERY MORNING, TAKE 1 TABLET at NOON, TAKE 2 TABLETS AT BEDTIME max daily DOSE 20mg. Do not fill until 03/26/2025 120 Tablet 02/24/20 25 Active methadone (DOLOPHINE) 5 mg TabletIndications: Lumbosacral spondylosis without myelopathy,Chronic midline low back pain with bilateral sciatica TAKE 1 TABLET BY MOUTH EVERY MORNING, TAKE 1 TABLET at NOON, TAKE 2 TABLETS AT BEDTIME max daily DOSE 20mg. Do not fill until 04/25/25 120 Tablet 02/24/20 Active methadone (DOLOPHINE) 5 mg TabletIndications: Lumbosacral spondylosis without myelopathy,Chronic midline low back pain with bilateral sciatica TAKE 1 TABLET BY MOUTH EVERY MORNING, TAKE 1 TABLET at NOON, TAKE 2 TABLETS AT BEDTIME max daily DOSE 20mg. Do not fill until 02/23/2025 120 Tablet 02/24/20 Active levothyroxine 75 mcg tabletIndications: Hypothyroidism (acquired) TAKE ONE TABLET BY MOUTH DAILY IN THE MORNING. 100 Tablet 1 03/31/20 Active carvediloL (COREG) 12.5 mg tablet TAKE ONE TABLET BY MOUTH TWICE DAILY. TAKE WITH A MEAL OR FOOD 180 Tablet 3 03/31/20 Active carvediloL (COREG) 12.5 mg tablet TAKE ONE TABLET BY MOUTH TWICE DAILY. TAKE WITH A MEAL OR FOOD 180 Tablet 3 03/17/20 24 025 Discontinued levothyroxine 75 mcg tabletIndications: Hypothyroidism (acquired) TAKE ONE TABLET (75 MCG) BY MOUTH DAILY IN THE MORNING. 100 Tablet 2 06/29/19 25 025 Discontinued Active Problems Problem Noted Date Diagnosed Date Chronic midline low back pain with bilateral sci atica 04/26/2024 History of paroxysmal supraventricular tachycard ia 07/12/2023 Primary hyperparathyroidism 07/12/2023 Hypothyroidism (acquired) 10/11/2022 Hyperlipidemia 12/23/2021 Lumbosacral spondylosis without myelopathy 12/23 Disorder of parathyroid gland 12/23/2021 Heart murmur 12/23/2021 Acute idiopathic gout involving toe of right eliceo t 12/23/2021 H/O parathyroidectomy 12/20/2021 Essential hypertension 08/22/2016 Gastroesophageal reflux disease 01/11/2016 Resolved Problems Problem Noted Date Diagnosed Date Resolved Date Stage 3a chronic kidney disease 10/11/2022 08/02/2024 SVT (supraventricular tachycardia) 01/20/2022 07/04/2022 Continuous opioid dependence 10/21/2018 07/12/2023 Encounters Date Type Department Care Team Description 03/31/2025 [facility] [address] [place] [address] Fatemeh Ibarra, Hypothyroidism (acquired) 03/15/2025 External Device Data STL ABSTRACTION Provider, Abstract 03/14/2025 External Device Data STL ABSTRACTION Provider, Abstract 02/23/2025 [facility] [address] [place] [address] Fatemeh Ibarra, Lumbosacral spondylosis without myelopathy; Chronic midline low back pain with bilateral sciatica 02/22/2025 [facility] [address] [place] [address] Fatemeh Ibarra, Lumbosacral spondylosis without myelopathy; Chronic midline low back pain with bilateral sciatica 02/21/2025 [facility] [address] [place] [address] Fatemeh Ibarra, Lumbosacral spondylosis without myelopathy; Chronic midline low back pain with bilateral sciatica 02/07/2025 External Device Data STL ABSTRACTION Provider, Abstract from Last 3 Months Immunizations Immunization Administration Dates Next Due INFLUENZA VACCINE HIGH DOSE TRIVALENT SPLIT VIRUS, (65 YR UP), 0.5ML (PF), IM 04/26/2024 INFLUENZA VACCINE QUADRIVALENT 6 MOS UP IM 07/03 INFLUENZA VACCINE QUADRIVALENT 6 MOS UP PF IM Family History Medical History Relation Name Comments Hearing Loss Father Heart Disease Father Respiratory Disease Father Thyroid Disease Mother Relation Name Status Comments Father Mother Alive Social History Tobacco Use Types Packs/Day Years Used Date Smoking Tobacco: Never Smokeless Tobacco: Never Alcohol Use Standard Drinks/Week Comments Never 0 (1 standard drink = 0.6 oz pur e alcohol) Comments No Sex and Gender Information Value Date Recorded Sex Assigned at Not on file Legal Sex Female 4:37 PM CRYPTOLOGIST Gender Identity Not on file Sexual Orientation Not on file Last Filed Vital Signs Vital Sign Reading Time Taken Comments Blood Pressure 130/80 11/23/2024 11:07 AM CDT Pulse 71 11/23/2024 11:02 AM CDT Temperature 37.2 C (99 F) 11/23/2024 11:02 AM CDT Respiratory Rate 17 04/26/2024 10:53 AM CRYPTOLOGIST Oxygen Saturation 94% 11/23/2024 11:02 AM CDT Inhaled Oxygen Concentration - - Weight 93.6 kg (206 lb 4 oz) 11/23/2024 11:02 AM CDT Height 165.1 cm (5' 5 ) 11/23/2024 11:02 AM CDT stated Body Mass Index 34.32 11/23/2024 11:02 AM CDT Plan of Treatment Upcoming Encounters Date Type Department Care Team (Late st Contact Info) Description 05/03/2025 1:40 PM CRYPTOLOGIST Office Visit [facility] [place] [address] [place] [address] Fatemeh Ibarra, [address] [place] [address] Health Maintenance Due Date Last Done Comments Pre-Diabetes and Diabetes Screening 1960 FIT/ DNA Q 3 YEARS (AUTO ORDER) 1977 FIT/FOBT Q 1 YEAR (AUTO ORDER) 1977 FLEX SIG/CT COLONOGRAPHY Q 5 YEARS (AUTO ORDER) 1977 DTAP/TDAP/TD VACCINES (1 - Tdap) 1978 BREAST CANCER SCREENING 1999 COLORECTAL CANCER SCREENING (AUTO ORDER) 2004 COLORECTAL SCREENING 2004 Colorectal Cancer Screening (AUTO ORDER) 2004 Colorectal Cancer Screening 2004 FIT-DNA Q 3 years 2004 FIT/FOBT Q 1 year 2004 Flex Sig/CT Colonography Q 5 years 2004 PNEUMOCOCCAL VACCINE 50+ YEA RS (1 of 1 - PCV) 2009 RSV VACCINE (60+ or ) (1 - Risk 50-74 years 1-dose series) 2009 ZOSTER VACCINE (1 of 2) 2009 OSTEOPOROSIS SCREENING 2024 INFLUENZA VACCINE (#1) 2024 4, 07/03/2023, 02/17/2022 COVID-19 Vaccine ( season) 2025, 08/20/2020 Traditional Medicare (O) A nnual Wellness Visit 07/22/2025 07/21/2024 Medical Devices Implanted Type Area Tax Services Professional Device Identifier Shelf Expiration Date Model / Serial / Lot Clip Ligating Horizon Med Ti [id number] - [facility] - [id number] Implanted:Qty: 1 on 12/10/2021 by Alexandria Sarabia MD at [facility] Clip N/A: Parathyroid TELEFLEX- [employer] [id number] 06/24/2026 [id number] / / [id number] Clip Ligating Horizon Red [id number] - [facility] - [id number] Implanted:Qty: 1 on 12/10/2021 by Alexandria Sarabia MD at [facility] Clip N/A: Parathyroid TELE[employer]LEX INC [id number] 06/03/2026 [id number] / / [id number] Insurance MEDICARE PART A AND B [facility] Advance Directives For more information, please contact: [phone] * Full Code (Latest Code Status on File) Date Activated Date Inactivated Comments 12/10/2021 11:45 AM 12/10/2021 4:47 PM Care Teams Sheet Metal Superintendent Relationship Specialty Start Date End Date Fatemeh Ibarra DO [address] [place] [id number] PCP - General Family Practice 12/20/21
--- OUTSIDE RECORDS SUMMARY | 2025-04-02 12:58 | XMS_ITS | Encounter Summary ---
Author Organization [facility] Address [address] [place] [address] Care Team Providers Care Corporate Sales Manager Name Role Phone Fatemeh Ibarra DO Primary Care Provider [phone] Reason for Visit * Reason Comments Med Refill Encounter Details Date Type Department Care Team (Late st Contact Info) Description 03/31/2025 Refill [facility] [address] [place] [address] Fatemeh Ibarra DO [address] [place] [address] Hypothyroidism (acquired) Social History Tobacco Use Types Packs/Day Years Used Date Smoking Tobacco: Never Smokeless Tobacco: Never Alcohol Use Standard Drinks/Week Comments Never 0 (1 standard drink = 0.6 oz pur e alcohol) Comments No Sex and Gender Information Value Date Recorded Sex Assigned at Not on file Legal Sex Female 4:37 PM ROLLER MILL TENDER Gender Identity Not on file Sexual Orientation Not on file documented as of this encounter Miscellaneous Notes * Telephone Encounter - Lissa Hua LPN - 03/31/2025 11:51 AM CST Medication Refill Request Last Fill Date:Levothyroxine 06/29/24 #100 with 2 RF Carvedilol 03/17/24 #180 with 3 RF MIGUEL 11/23/24 Last labs 07/21/24 Recent and Future Visits: Recent Visits Date Type Provider Dept 11/23/24 Office Visit Fatemeh Ibarra DO [facility] [place] 07/21/24 Office Visit Fatemeh Ibarra DO [facility] 04/26/24 Office Visit Eugenia Nam FNP [facility] 01/19/24 Office Visit Fatemeh Ibarra DO [facility] Showing recent visits within past 540 days with a meds authorizing provider and meeting all other requirements Future Appointments Date Type Provider Dept 05/03/25 Appointment Fatemeh Ibarra DO [facility] Showing future appointments within next 365 days with a meds authorizing provider and meeting all other requirements Last Labs: Lab Results Component Value Date/Time CREAT 1.00 07/21/2024 12:03 PM CREATPOC 1.20 08/27/2021 11:08 AM BUN 18 07/21/2024 12:03 PM NA 141 07/21/2024 12:03 PM K 4.4 07/21/2024 12:03 PM CL 100 07/21/2024 12:03 PM CO2 28 07/21/2024 12:03 PM GFR 63 07/21/2024 12:03 PM Lab Results Component Value Date/Time TSH 3.00 07/21/2024 12:03 PM T4FREE 1.3 07/04/2022 04:39 PM Awa ELIZONDO - 1960 Check and review of the [place] PDMP performed on 03/31/2025 at 11:51 AM was ER MILL TENDER documented in this encounter Plan of Treatment Upcoming Encounters Date Type Department Care Team (Late st Contact Info) Description 05/03/2025 1:40 PM ROLLER MILL TENDER Office Visit [facility] [address] [place] [phone] Fatemeh Ibarra DO [address] [place] [phone] documented as of this encounter Visit Diagnoses Diagnosis Hypothyroidism (acquired) Unspecified hypothyroidism documented in this encounter Care Teams Corporate Sales Manager Relationship Specialty Start Date End Date Fatemeh Ibarra DO [address] [place] [phone] PCP - General Family Practice 12/20/21 documented as of this encounter
[2025-04-02 12:59] VITALS: BP 173/112; PULSE 73; RESP 16; TEMP 36.8; O2SAT 99
[2025-04-02 13:16] LABS: Hematocrit 39.6 % (36-47); Hemoglobin 12.50 g/dL (11.27-16.99); Mean Corpuscular HGB Conc 31.6 g/dL (30-55); Mean Corpuscular Hemoglobin 29.9 pg (27-33); Mean Corpuscular Volume 94.7 fl (85-98); Nucleated Red Blood Cells % 0 %; Platelet Count 185 10^3/cmm (157-399); Red Blood Count 4.18 10^6/uL (3.85-5.65); White Blood Count 4.94 10^3/uL (3.29-11.43)
[2025-04-02 13:30] LABS: Troponin(5th) Baseline 9 ng/L (0-10)
--- NOTE | 2025-04-02 13:30 | W.ED.GENADLT ---
HPI - General Adult General: Chief complaint: Nausea/Vomiting/Diarrhea Stated complaint: dizzy Time Seen by Provider: 04/02/25 12:55 History of Present Illness: 65-year-old female who presents emergency room with complaints of what she describes as dizziness she has intermittently had these episodes for several years. She states it began a couple years ago and her calcium high related to a parathyroid tumor she was briefly hospitalized says since then she intermittently has these periods of dizziness today's is much worse than usual. She notices worse with change in position or movement of her head although that seems to be decreasing as well she has noticed that she close her eyes and gets better she has vomited several times she has not any hematemesis or coffee-ground emesis. No fever sweats chills no recent trauma to the head. When she gets these dizzy spells they do affect her balance. Associated symptoms: Deny chest pain, dyspnea or rash Related Data Home Medications ?Medication ?Instructions ?Recorded ?Confirmed methadone 5 mg tablet 5 mg PO BID 06/02/21 10/15/22 coenzyme Q10 200 mg capsule (Co 200 mg PO DAILY 03/03/22 10/15/22 Q-10) lisinopril 20 mg tablet 20 mg PO BID 03/03/22 10/15/22 acetaminophen 325 mg tablet 325 mg PO QID PRN 10/13/22 10/15/22 atorvastatin 20 mg tablet 40 mg PO DAILY 10/13/22 10/15/22 levothyroxine 100 mcg tablet 75 mcg PO QAM 10/13/22 10/15/22 Previous Rx's ?Medication ?Instructions ?Recorded carvedilol 12.5 mg tablet See Rx Instructions .Route 02/27/23 .COMPLEX #180 tabs spironolactone 25 mg tablet 25 mg PO DAILY #90 tabs 04/14/23 lorazepam 2 mg tablet (Ativan) 2 mg PO Q6H PRN dizziness or 04/02/25 vertigo #10 tabs Allergies Allergy/AdvReac Type Severity Reaction Status Date / Time prochlorperazine (From Allergy ADR-Irritab Verified 10/15/22 07:56 Compazine) le Review of Systems Const: Denies: fever(s) or chills Card: Denies: chest pain Resp: Denies: dyspnea GI: Denies: abdominal pain : Denies: dysuria, urinary frequency or urinary urgency Musc: Denies: neck pain or back pain Skin/Breast: Denies: rash PFSH ED PFSH: Medical History History of benign parathyroid tumor Hypothyroidism Hyperlipidemia Acute kidney injury Acute renal injury due to hypovolemia Hypercalcemia Generalized weakness Hypertension Nausea & vomiting Parathyroid adenoma GERD (gastroesophageal reflux disease) Hypokalemia Intrahepatic bile duct dilation Common bile duct dilation Acute pancreatitis Constipation Hypercalcemia HTN (hypertension) Surgical History History of parathyroid surgery History of hysterectomy for benign disease H/O foot surgery History of Family History Father Heart disease Sister Leukemia Social History Smoking and tobacco/nicotine status: never used tobacco/nicotine Alcohol intake: never Substance/Drug Use: never Lives independently: Yes Household members: spouse Marital status: Current occupational status: unemployed Physical Exam Const: COMMON NORMALS: no acute distress GENERAL APPEARANCE: cooperative and comfortable ORIENTATION/CONSCIOUSNESS: Yes awake, Yes oriented to person, Yes oriented to place and Yes oriented to time HENMT: COMMON NORMALS: normocephalic, atraumatic and hearing grossly normal bilaterally HEAD & SCALP: normocephalic and atraumatic Resp: COMMON NORMALS: normal respiratory effort, No retractions, No use of accessory muscles and clear to auscultation bilaterally AUSCULTATION: clear to auscultation bilaterally Cardio: COMMON NORMALS: regular rate, regular rhythm and No murmurs present (Cardio) RATE: regular rate RHYTHM: regular rhythm GI: COMMON NORMALS: Soft to palpation and No hepatosplenomegaly present AUSCULTATION: Yes normoactive bowel sounds PALPATION: Yes Soft to palpation, No Tenderness to palpation present (GI), No Guarding due to palpation present (GI) and Yes No hepatosplenomegaly present Extremity: COMMON NORMALS: normal to inspection, capillary refill normal, no clubbing, cyanosis or edema, no calf tenderness and no pedal edema Neuro: SENSORIUM/ORIENTATION: Yes oriented to person, Yes oriented to place and Yes oriented to time Skin: COMMON NORMALS: no rashes or lesions noted GENERAL SKIN EXAM: no rashes or lesions noted Course Vital Signs: Vital signs: Vital Signs Temperature 98.2 F 04/02/25 12:59 Pulse Rate 73 04/02/25 12:59 Respiratory Rate 16 04/02/25 12:59 Blood Pressure 173/112 04/02/25 12:59 Pulse Oximetry 99 04/02/25 12:59 Oxygen Delivery Me thod Room Air 04/02/25 12:59 MDM - General Adult Medical Decision Making NIH was 0. Patient does have reproducible dizziness she has multiple episodes in the past. CT of her head and CTA of her head and neck are negative I do not believe she has a posterior stroke at this time she was able to ambulate without difficulty she had significant improvement after the Ativan we will discharge her home with Ativan to use p.o. and have her follow-up with the primary care doctor Medical Records I reviewed the patient's medical records. Lab Data I reviewed the patient's lab results. 04/02/25 13:03 04/02/25 13:[address] 04/02/25 13:41 IMPRESSION: No acute intracranial abnormality. Head/Neck CTA 04/02/25 15:44 IMPRESSION: No large vessel stenosis or occlusion. IMPRESSION: No stenosis or occlusion. REFERENCES: NASCET CRITERIA. The degree of stenosis in the cervical segment of the internal carotid artery is based on NASCET criteria. Normal is no stenosis. Mild is less than 50% stenosis. Moderate is 50-69% stenosis. Severe is 70% to 99% stenosis. Total occlusion is no detectable patent lumen. Laboratory Results WBC 4.94 10^3/uL (3.29-11.43) 04/02/25 13:03 RBC 4.18 10^6/uL (3.85-5.65) 04/02/25 13:03 Hgb 12.50 g/dL (11.27-16.99) 04/02/25 13:03 Hct 39.6 % (36-47) 04/02/25 13:03 MCV 94.7 fl (85-98) 04/02/25 13:03 MCH 29.9 pg (27-33) 04/02/25 13:03 MCHC 31.6 g/dL (30-55) 04/02/25 13:03 RDW 12.8 % (12.1-15.1) 04/02/25 13:03 Plt Count 185 10^3/cmm (157-399) 04/02/25 13:03 MPV 10.3 fL (7.4-10.4) 04/02/25 13:03 Neut % (Auto) 64.4 % 04/02/25 13:03 Lymph % (Auto) 25.7 % 04/02/25 13:03 Bath % (Auto) 7.1 % 04/02/25 13:03 Eos % (Auto) 2.2 % 04/02/25 13:03 Baso % (Auto) 0.4 % 04/02/25 13:03 Neut # (Auto) 3.18 10^3/uL (1.8-7.7) 04/02/25 13:03 Lymph # (Auto) 1.3 10^3/uL (0.8-4.8) 04/02/25 13:03 Bath # (Auto) 0.4 10^3/uL (0.2-0.9) 04/02/25 13:03 Eos # (Auto) 0.1 10^3/uL (0.0-0.8) 04/02/25 13:03 Baso # (Auto) 0.0 10^3/uL (0.0-0.1) 04/02/25 13:03 Nucleated RBC % (auto) 0 % 04/02/25 13:03 Nucleated RBCs # 0.0 /100WBC 04/02/25 13:03 Sodium 139 mmol/L (136-145) 04/02/25 13:03 Potassium 4.9 mmol/L (3.5-5.1) 04/02/25 13:03 Chloride 104 mmol/L (98-107) 04/02/25 13:03 Carbon Dioxide 25 mmol/L (22-29) 04/02/25 13:03 Anion Gap 14.9 (5-19) 04/02/25 13:03 BUN 17 mg/dL (8-23) 04/02/25 13:03 Creatinine 0.9 mg/dL (0.5-0.9) 04/02/25 13:03 GFR Calculation 62.6 mL/min (90-130) L 04/02/25 13:03 Glucose 123 mg/dL (65-115) H 04/02/25 13:03 Calculated Osmolality 291 mOsm/kg (285-295) 04/02/25 13:03 Calcium 9.0 mg/dL (8.5-10.5) 04/02/25 13:03 Total Bilirubin 0.5 mg/dL (0.15-1.2) 04/02/25 13:03 AST 18 U/L (0-32) 04/02/25 13:03 ALT 17 U/L (0-33) 04/02/25 13:03 Alkaline Phosphatase 186 U/L (35-105) H 04/02/25 13:03 Troponin T Baseline 9 ng/L (0-10) 04/02/25 13:03 Troponin T 120 Minute 9.47 ng/L (0-10) 04/02/25 15:32 Delta Troponin T 0.47 ABS# (0-10) 04/02/25 15:32 Total Protein 6.7 g/dL (6.6-8.7) 04/02/25 13:03 Albumin 4.4 g/dL (3.5-5.2) 04/02/25 13:03 Globulin 2.3 g/dL (1.3-4.6) 04/02/25 13:03 Urine Color Yellow (Yellow) 04/02/25 15:55 Urine Appearance Clear (CLEAR) 04/02/25 15:55 Urine pH 6.5 (5-7) 04/02/25 15:55 Ur Specific [place] 1.009 (1.005-1.030) 04/02/25 15:55 Urine Protein Negative (Negative) 04/02/25 15:55 Urine Glucose (UA) Negative (Normal) 04/02/25 15:55 Urine Ketones Negative (Negative) 04/02/25 15:55 Urine Blood 1+ (Negative) A 04/02/25 15:55 Urine Nitrate Negative (Negative) 04/02/25 15:55 Urine Bilirubin Negative (Negative) 04/02/25 15:55 Urine Urobilinogen 0.2 mg/dL (Negative) 04/02/25 15:55 Ur Leukocyte Esterase Trace (Negative) A 04/02/25 15:55 Urine RBC 3-5 /hpf (0-2) 04/02/25 15:55 Urine WBC 0-5 /hpf (0-5) 04/02/25 15:55 Ur Squamous Epith Cells 0-5 /hpf (0-5) 04/02/25 15:55 Amorphous Sediment Not Reportable 04/02/25 15:55 Urine Bacteria Trace /hpf (NONE) 04/02/25 15:55 Hyaline Casts 0.40 /lpf 04/02/25 15:55 All radiology interpretation(s) finalized by discharge Discharge Plan Discharge Patient Disposition: Home Clinical Impression: Acute labyrinthitis Condition: Stable Prescriptions: New lorazepam [Ativan] 2 mg tablet 2 mg PO Q6H PRN (Reason: dizziness or vertigo) Qty: 10 0RF No Action coenzyme Q10 [Co Q-10] 200 mg capsule 200 mg PO DAILY lisinopril 20 mg tablet 20 mg PO BID atorvastatin 20 mg tablet 40 mg PO DAILY acetaminophen 325 mg tablet 325 mg PO QID PRN carvedilol 12.5 mg tablet See Rx Instructions .ROUTE .COMPLEX Qty: 180 3RF Dose Instruction: TAKE 1 TABLET BY MOUTH TWICE DAILY, TAKE WITH A MEAL/FOOD Rx Instructions: TAKE 1 TABLET BY MOUTH TWICE DAILY, TAKE WITH A MEAL/FOOD spironolactone 25 mg tablet 25 mg PO DAILY Qty: 90 3RF methadone 5 mg tablet 5 mg PO BID levothyroxine 100 mcg tablet 75 mcg PO QAM Discharge Orders: Discharge ED (Routine); Ordered 04/02/25 Ordered By: Ruben Pascal Referrals: Fatemeh Ibarra DO [Primary Care Provider, Family Practice] Discharge Diet: Usual diet Discharge Activity: Increase activity as tolerated Patient Instructions: Opioid Safety, Pain Management, Patient Portal & Karl Instructions Activity Restrictions/Additional Instructions: Thank you for choosing [facility] for your healthcare needs today. It is very important that you follow up as instructed or that you return to the Emergency Department should you have concerns or if your condition changes or worsens in any way. Emergency department visits are focused on emergent conditions, in some cases you may require further evaluation on an outpatient basis. You were seen in the emergency room with complaint of dizziness with nausea and vomiting. Your dizziness was relieved by Ativan CT of your head and CTA of head and neck were all negative for acute stroke he had no other signs of stroke. Will discharge you home with Ativan to use as needed for labyrinthitis. if your symptoms worsen or change return to the emergency room. (Please note that included in your discharge packet is information concerning opioid safety and pain management. This information is given to all patients were discharged from the ER regardless of their discharge diagnosis or the medicines they usually take or are prescribed.) Print Language: Malagasy Coding Level of Care Code ED Mink Slicer for Magaly Garcia
[2025-04-02 13:35] LABS: Alanine Aminotransferase 17 U/L (0-33); Albumin Level 4.4 g/dL (3.5-5.2); Alkaline Phosphatase 186 U/L (35-105); Anion Gap 14.9 (5-19); Aspartate Amino Transferase 18 U/L (0-32); Blood Urea Nitrogen 17 mg/dL (8-23); Calcium 9.0 mg/dL (8.5-10.5); Carbon Dioxide 25 mmol/L (22-29); Chloride 104 mmol/L (98-107); Globulin 2.3 g/dL (1.3-4.6); Glucose 123 mg/dL (65-115); Osmolality Calculated 291 mOsm/kg (285-295); Potassium 4.9 mmol/L (3.5-5.1); Sodium 139 mmol/L (136-145); Total Protein 6.7 g/dL (6.6-8.7)
--- NOTE | 2025-04-02 13:41 | CTR_ITS ---
PROCEDURE INFORMATION: Exam: CT Head Without Contrast Exam date and time: 04/02/2025 1:50 PM Age: 65 years old Clinical indication: Dizziness TECHNIQUE: Imaging protocol: Computed tomography of the head without contrast. Radiation optimization: All CT scans at this facility use at least one of these dose optimization techniques: automated exposure control; mA and/or kV adjustment per patient size (includes targeted exams where dose is matched to clinical indication); or iterative reconstruction. COMPARISON: CT head wo con* [id number] 07/25/2021 9:30 AM RADIATION DOSE METRICS: Total DLP (mGy-cm): 1017.68 FINDINGS: Brain: Normal. No hemorrhage. Bilateral ill-defined periventricular hypodensities consistent with moderate chronic microvascular white matter ischemic changes. Cerebral ventricles: No ventriculomegaly. Paranasal sinuses: Partial opacification of the ethmoid sinuses, all other visualized paranasal sinuses clear. Mastoid air cells: Visualized mastoid air cells are well aerated. Bones: Unremarkable. No acute fracture. Soft tissues: Unremarkable. CT/CT head wo con* [id number] IMPRESSION: No acute intracranial abnormality.
--- NOTE | 2025-04-02 13:45 | ECG_ITS ---
[facility] Date[facility] 2025-04-02 Pat Name: Awa Ren Department: Room: Gender: Female File Keeper: : 1960 Requested By: Ruben Wang Order Number: [id number] Ana MD: Renea Bullock M.D. Measurements Intervals [place] Rate: 67 P: 61 WV: 212 QRS: -10 QRSD: 85 T: 30 QT: 408 QTc: 432 Interpretive Statements SINUS RHYTHM WITH FIRST DEGREE AV BLOCK POSSIBLE RIGHT VENTRICULAR CONDUCTION DELAY [RSR (QR) IN V1/V2] Compared to ECG 07/24/2021 07:15:26 First degree AV block now present Incomplete right bundle-branch block no longer present T-wave abnormality no longer present Electronically Signed On 04-02-2025 20:10:43 APPEALS ANALYST by Renea Bullock M.D. [email or web address]
--- NOTE | 2025-04-02 15:44 | CTR_ITS ---
PROCEDURE INFORMATION: Exam: CTA Head With Contrast, Arteriography Exam date and time: 04/02/2025 5:00 PM Age: 65 years old Clinical indication: Dizziness and giddiness and other: Nausea/vomitting; Additional info: Dizziness nausea vomiting TECHNIQUE: Imaging protocol: Computed tomographic angiography of the head with contrast. Exam focused on the arteries. 3D rendering (Not supervised by radiologist): MIP and/or 3D reconstructed images were created by the technologist. Radiation optimization: All CT scans at this facility use at least one of these dose optimization techniques: automated exposure control; mA and/or kV adjustment per patient size (includes targeted exams where dose is matched to clinical indication); or iterative reconstruction. Contrast material: OMNIPAQUE 350; Contrast volume: 100 ml; Contrast route: INTRAVENOUS (IV); COMPARISON: CT head wo con* [id number] 04/02/2025 1:50 PM RADIATION DOSE METRICS: Total DLP (mGy-cm): 448.63 FINDINGS: ANTERIOR CIRCULATION: Right internal carotid artery: Intracranial segment is patent with no significant stenosis. No aneurysm. Right middle cerebral artery: No occlusion or significant stenosis. No aneurysm. Right anterior cerebral artery: No occlusion or significant stenosis. No aneurysm. Left internal carotid artery: Intracranial segment is patent with no significant stenosis. No aneurysm. Left middle cerebral artery: No occlusion or significant stenosis. No aneurysm. Left anterior cerebral artery: No occlusion or significant stenosis. No aneurysm. POSTERIOR CIRCULATION: Right vertebral artery: No occlusion or significant stenosis. No aneurysm. Left vertebral artery: No occlusion or significant stenosis. No aneurysm. Basilar artery: No occlusion or significant stenosis. No aneurysm. Right posterior cerebral artery: No occlusion or significant stenosis. No aneurysm. Left posterior cerebral artery: No occlusion or significant stenosis. No aneurysm. Brain: No definite mass, mass effect, or midline shift. Cerebral ventricles: No ventriculomegaly. Bones/joints: Cervical spondylosis. No acute fracture. Focal kyphosis at C3-C4. Soft tissues: Unremarkable. PROCEDURE INFORMATION: Exam: CTA Neck With Contrast Exam date and time: 04/02/2025 5:00 PM Age: 65 years old Clinical indication: Dizziness and giddiness and other: Nausea/vomitting; Additional info: Dizziness nausea vomiting TECHNIQUE: Imaging protocol: Computed tomographic angiography of the neck with contrast. Exam focused on the cervical segments of the vasculature. 3D rendering (Not supervised by radiologist): MIP and/or 3D reconstructed images were created by the technologist. Radiation optimization: All CT scans at this facility use at least one of these dose optimization techniques: automated exposure control; mA and/or kV adjustment per patient size (includes targeted exams where dose is matched to clinical indication); or iterative reconstruction. Contrast material: OMNIPAQUE 350; Contrast volume: 100 ml; Contrast route: INTRAVENOUS (IV); COMPARISON: CT head wo con* [id number] 04/02/2025 1:50 PM RADIATION DOSE METRICS: Total DLP (mGy-cm): 448.63 FINDINGS: Right common carotid artery: No stenosis. No dissection or occlusion. Right internal carotid artery: No stenosis of the extracranial segment. No dissection or occlusion. Right external carotid artery: No occlusion or stenosis of the origin. Left common carotid artery: No stenosis. No dissection or occlusion. Left internal carotid artery: No stenosis of the extracranial segment. No dissection or occlusion. Left external carotid artery: No occlusion or stenosis of the origin. Right vertebral artery: No stenosis. No dissection or occlusion. Left vertebral artery: No stenosis. No dissection or occlusion. Soft tissues: Normal. No significant soft tissue swelling. Bones/joints: No acute fracture. Chronic marked degenerative disc and facet changes throughout the cervical spine with multilevel foramina compromise. Other findings: From C6 up to C4 the internal carotid artery drifts medially as it ascends bringing it closer to the pharyngeal wall CT/CT angio headneck* [id number] IMPRESSION: No large vessel stenosis or occlusion. IMPRESSION: No stenosis or occlusion. REFERENCES: NASCET CRITERIA. The degree of stenosis in the cervical segment of the internal carotid artery is based on NASCET criteria. Normal is no stenosis. Mild is less than 50% stenosis. Moderate is 50-69% stenosis. Severe is 70% to 99% stenosis. Total occlusion is no detectable patent lumen.
[2025-04-02 16:00] LABS: Troponin 5 2HR 9.47 ng/L (0-10); Troponin 5 2HR Delta 0.47 ABS# (0-10)
[2025-04-02 16:06] LABS: Glucose Urine UA Negative (Normal); Nitrate Urine Negative (Negative); Specific Gravity, Urine 1.009 (1.005-1.030)
[2025-04-02 16:11] LABS: Add Urine Microscopic? YES
[2025-04-02] MEDS: LORazepam 2 mg/mL INJ 1 mL 1 MG IVP (16:41)
[2025-04-02] MEDS: iohexol 350 mg/mL 500 mL Btl (per mL) IV (17:02)
--- NOTE | 2025-04-02 18:02 | ECG_ITS ---
[facility] Test Date: 2025-04-02 Pat Name: Awa Ren Department: Room: Gender: Female Elect Equip Maint Eng: : 1960 Requested By: Ruben Wang Order Number: [id number] Ana MD: Renea Bullock M.D. Measurements Intervals [place] Rate: 85 P: 57 OR: 193 QRS: -9 QRSD: 80 T: 46 QT: 372 QTc: 444 Interpretive Statements SINUS RHYTHM Compared to ECG 04/02/2025 13:45:40 First degree AV block no longer present Electronically Signed On 04-02-2025 20:16:34 TESTER ELECTRONIC SCALE by Renea Bullock M.D. [email or web address]
[2025-04-02 18:10] VITALS: BP 136/110; PULSE 86; O2SAT 92
== END 2025-04-02 18:10 | disposition home or self-care (01) ==
PROVIDERS: Emergency Provider Family Medicine; PCP Family Medicine
DX: H83.09 Labyrinthitis, unspecified ear (principal); E78.5 Hyperlipidemia, unspecified; I10 Essential (primary) hypertension
CPT/HCPCS: 70450; 70496; 70498; 80053; 81001; 84484; 85025; 93005; 96361; 96374; 99285; J2060; J7030